=== PATIENT | female | born 1960 | race Caucasian/White ===

== ENCOUNTER 2020-01-21 13:49 | Outpatient (CLI) | payer OTHER, SELFPAY ==
[2020-01-21 14:15] LABS: Basophils Percent Auto 0.3 % (0.2-1.2); Eosinophils Absolute Auto 0.1 K/mm3 (0-0.3); Eosinophils Percent Auto 0.8 % (0-4.4); Hematocrit 43.3 % (37.0-47.0); Hemoglobin 14.7 g/dL (12.0-15.0); Immature Granulocyte Absolute 0.03 K/mm3 (0.00-0.031); Immature Granulocyte Percent A 0.3 % (0-0.5); Lymphocytes Absolute Auto 1.55 K/mm3 (0.9-3.2); Lymphocytes Percent Auto 16.9 % (18.3-44.2); Mean Corpuscular HGB Conc 33.9 g/dl (32-36); Mean Corpuscular Hemoglobin 32.4 pg (26-34); Mean Corpuscular Volume 95.4 fl (80-100); Mean Platelet Volume 9.6 fl (7.4-10.4); Monocytes Absolute Auto 0.6 K/mm3 (0.1-0.6); Monocytes Percent Auto 6.1 % (2.6-8.5); Neutrophils Absolute Auto 6.9 K/mm3 (1.3-6.7); Neutrophils Percent Auto 75.6 % (45.5-73.1); Platelet Count Result 304 k/mm3 (150-375); Red Blood Count 4.54 M/mm3 (4.2-5.4); Red Cell Distribution Width 12.8 % (11.5-14.5); White Blood Count 9.2 K/mm3 (4.5-10.0)
[2020-01-21 14:31] LABS: Anion Gap 12.9 mmol/L (7-16); Blood Urea Nitrogen 20 mg/dL (7-17); Calcium 10.2 mg/dL (8.4-10.2); Carbon Dioxide 30 mmol/L (22-30); Chloride 100 mmol/L (98-107); Estimated Glomerular Filt Rate > 60; Glucose 108 mg/dL (65-105); Potassium 3.9 mmol/L (3.4-5.0); Sodium 139 mmol/L (137-145)
[2020-01-21 15:48] LABS: Vitamin D 25 Hydroxy 57.9 ng/mL
== END 2020-01-21 13:50 | disposition home or self-care (01) ==
PROVIDERS: PCP Family Medicine; Visit Provider Nurse Practitioner Family
DX: Z13.1 Encounter for screening for diabetes mellitus (principal); R53.83 Other fatigue; E53.8 Deficiency of other specified B group vitamins; E55.9 Vitamin D deficiency, unspecified
CPT/HCPCS: 36415; 80048; 82306; 82607; 84443; 85025

== ENCOUNTER 2020-03-08 11:15 | Outpatient (CLI) | payer OTHER, SELFPAY ==
--- NOTE | ~2020-03-08 | MM_ITS ---
EXAMINATION: MM diag doug implant BI w juliann HISTORY: History of previous right breast cancer with lumpectomy TECHNIQUE: Additional 3-D tomosynthesis images of the breasts were performed and synthetic 2-D images were generated. CAD analysis was submitted and interpreted. COMPARISON: Comparison to multiple prior studies sequentially, with oldest reviewed study dated 01/2018. BREAST PARENCHYMAL COMPOSITION: Breast composed of scattered areas of fibroglandular density. FINDINGS: There are no suspicious masses, calcifications or architectural distortion in the right [place] ast to suggest malignancy. Stable architectural distortion in the upper outer quadrant of the right b reast, consistent with previous lumpectomy sites. There are bilateral subpectoral silicone implants. IMPRESSION: 1. Stable bilateral mammogram without evidence for malignancy. 2. Routine yearly screening mammogram and regular clinical breast examination are recommended. BI-RADS Category 2: Benign finding(s). Reviewed, dictated and finalized at location A. IMPRESSION: 1. Stable bilateral mammogram without evidence for malignancy. 2. Routine yearly screening mammogram and regular clinical breast examination a re recommended. BI-RADS Category 2: Benign finding(s).
== END 2020-03-08 11:16 | disposition home or self-care (01) ==
PROVIDERS: PCP Family Medicine; Visit Provider Family Medicine
DX: Z85.3 Personal history of malignant neoplasm of breast (principal)
CPT/HCPCS: 77062; 77066; G0279

== ENCOUNTER 2020-07-09 11:36 | Outpatient (CLI) | payer OTHER, SELFPAY ==
--- NOTE | ~2020-07-09 | XR_ITS ---
EXAMINATION: XR hip BI 2V w AP pelvis EXAM DATE: 07/09/2020 12:00 INDICATION: M16.0 - Bilateral primary osteoarthritis of hip. TECHNIQUE: Each hip imaged independently (separate right and also left hip) 'frog leg' and frontal p rojections for interpretation. Frontal projection pelvis. There is no prior study for comparison. FINDINGS: No radiographic evidence of hip avascular necrosis. There is mild symmetric bilateral hip primary osteoarthritis. There are no acute fractures or dislocations identified. There is no subcuta neous gas. The soft tissue is unremarkable. There are no radiopaque foreign bodies. Sacrum, sacro iliac joints, sacral arcuate lines are intact. IMPRESSION: Mild symmetric bilateral hip osteoarthritis. Reviewed, dictated and finalized at location B. 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
--- NOTE | ~2020-07-09 | XR_ITS ---
EXAMINATION: XR lumbar spine 6V w bending EXAM DATE: 07/09/2020 11:59 INDICATION: Low back pain. TECHNIQUE: Lumber spine frontal, lateral, bilateral oblique projections. Coned down frontal and lat eral L5-S1 lumbar projections for interpretation. Additional lateral flexion and lateral extension p rojections obtained. There are no prior studies for comparison. FINDINGS: The vertebral bodies are aligned on the lateral projections. There is mild diffuse lumbar d isc disease. Vertebral body heights appear well-maintained. Moderate lumbar facet arthropathy. No spo ndylolysis. Sacrum, sacroiliac joints, sacral arcuate lines are intact. Paraspinal soft tissue is unr emarkable. There are no bony erosions identified. IMPRESSION: Moderate lumbar arthropathy, mild disc disease. Reviewed, dictated and finalized at location B. 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
== END 2020-07-09 11:37 ==
PROVIDERS: PCP Family Medicine; Visit Provider Family Medicine
DX: M54.5 Low back pain (principal); M16.0 Bilateral primary osteoarthritis of hip; M47.816 Spondylosis without myelopathy or radiculopathy, lumbar region
CPT/HCPCS: 72114; 73521

== ENCOUNTER 2020-11-07 16:19 | Outpatient (CLI) | payer OTHER, SELFPAY ==
--- NOTE | ~2020-11-07 | XR_ITS ---
XR forearm RT 2V DATE: 11/07/2020 16:35 INDICATION: Right arm and elbow pain TECHNIQUE: AP and lateral views of right forearm COMPARISON: None FINDINGS: No fracture or dislocation, periosteal reaction or bone destruction. Normal alignment and e lbow and wrist joints. IMPRESSION: Negative Reviewed, dictated and finalized at location A. IMPRESSION: Negative
--- NOTE | ~2020-11-07 | XR_ITS ---
EXAMINATION: XR elbow RT min 3V EXAM DATE: 11/07/2020 16:35 INDICATION: Initial encounter following injury, with pain of the right elbow, forearm. States injury on 10/29. TECHNIQUE: Right elbow frontal, lateral with flexion, and oblique projections obtained and reviewed. Correlation is made to right forearm exam earlier same date. FINDINGS: Right elbow anterior humeral line intact. There are no acute fractures or dislocations rachel ntified. There is no subcutaneous gas. The soft tissue is unremarkable. There are no radiopaque f oreign bodies. No evidence of elbow joint effusion. IMPRESSION: 1. XR elbow RT min 3V exam without acute osseous findings. Reviewed, dictated and finalized at location A.
== END 2020-11-07 16:20 ==
PROVIDERS: Visit Provider Physician Assistant Medical
DX: M25.521 Pain in right elbow (principal); M79.601 Pain in right arm
CPT/HCPCS: 73080; 73090

== ENCOUNTER 2021-04-16 17:20 | Outpatient (CLI) | payer OTHER, SELFPAY ==
--- NOTE | ~2021-04-16 | XR_ITS ---
EXAMINATION: XR cervical spine min 6V DATE: 04/16/2021 17:54 INDICATION: Chronic neck pain. TECHNIQUE: 7 views of cervical spine including flexion and extension views were obtained. COMPARISON: None. FINDINGS: There is 2 mm anterolisthesis of C4 on C5 and C5 on C6. There is no abnormal motion with fl exion or extension. Vertebral body heights are normal. There is severely decreased disc height at C6- C7 with endplate remodeling. There is mildly decreased disc height at C4-C5 and C5-C6. On the left, t here is severe facet joint osteoarthritis at C3-C4, C4-C5, C5-C6. There is multilevel mild to moderat e facet joint osteoarthritis. There is moderate left neural foraminal stenosis at C4-C5 and mild left neural foraminal stenosis at C3-C4, C5-C6, and C7-T1. There is mild central canal stenosis at C4-C5, C5-C6, and C6-C7. No prevertebral soft tissue swelling. IMPRESSION: 1. Severe cervical spondylosis. Reviewed, dictated and finalized at location A.
== END 2021-04-16 17:21 | disposition home or self-care (01) ==
LOC: ANHIMG 17:24
PROVIDERS: PCP Family Medicine; Visit Provider Family Medicine
DX: M47.813 Spondylosis without myelopathy or radiculopathy, cervicothoracic region (principal); M79.603 Pain in arm, unspecified; M48.03 Spinal stenosis, cervicothoracic region
CPT/HCPCS: 72052

== ENCOUNTER 2022-03-28 13:14 | Outpatient (CLI) | payer OTHER, SELFPAY ==
--- NOTE | ~2022-03-28 | MM_ITS ---
EXAMINATION: MM diag doug implant BI w juliann HISTORY: Status post right partial mastectomy for breast cancer in 2017. Patient had chemotherapy and radiotherapy. TECHNIQUE: ML, MLO and CC 3-D tomosynthesis images of both breasts were performed and synthetic 2-D i mages were generated. CAD analysis was submitted and interpreted. COMPARISON: 03/08/2020bilateral diagnostic mammography BREAST PARENCHYMAL COMPOSITION: The breasts are heterogeneously dense, which may obscure small masses . FINDINGS: Status post right partial mastectomy. Biopsy marker is noted in the posterior upper outer r ight breast. No suspicious mass or new architectural distortion, malignant calcification, skin thickening or new r etraction or significant new or developing density is detected. IMPRESSION: 1. Status post right partial mastectomy for breast cancer; status post right breast reconstruction 2. No mammographic evidence of malignancy; routine annual mammographic screening is recommended, with additional imaging as clinically appropriate BI-RADS Category 2: Benign finding(s). Reviewed, dictated and finalized at location A. IMPRESSION: 1. Status post right partial mastectomy for breast cancer; status post right br east reconstruction 2. No mammographic evidence of malignancy; routine annual mammographic screenin g is recommended, with additional imaging as clinically appropriate BI-RADS Category 2: Benign finding(s).
== END 2022-03-28 13:15 | disposition home or self-care (01) ==
LOC: ANHIMG 13:15
PROVIDERS: PCP Family Medicine; Visit Provider Family Medicine
DX: Z85.3 Personal history of malignant neoplasm of breast (principal); Z98.890 Other specified postprocedural states
CPT/HCPCS: 77062; 77066; G0279

== ENCOUNTER 2022-09-19 09:17 | Outpatient (CLI) | payer OTHER, SELFPAY ==
--- NOTE | ~2022-09-19 | XR_ITS ---
EXAMINATION: XR hip LT min 3V w AP pelvis INDICATION: Left hip pain after fall TECHNIQUE: AP view the pelvis and three views of the left hip are obtained. COMPARISON: 07/09/2020 FINDINGS: Bone alignment is normal. There is no fracture. The soft tissues are unremarkable. IMPRESSION: 1. No acute osseous abnormality. Reviewed, dictated and finalized at location B.
== END 2022-09-19 09:18 | disposition home or self-care (01) ==
PROVIDERS: PCP Family Medicine; Visit Provider Family Medicine
DX: M25.552 Pain in left hip (principal)
CPT/HCPCS: 73502

== ENCOUNTER 2022-09-25 10:09 | Outpatient (CLI) | payer OTHER, SELFPAY ==
--- NOTE | ~2022-09-25 | XR_ITS ---
Clinical Indication: Metastatic disease PA and lateral views of the chest: Comparison: 01/21/2020 Findings: The lungs are clear, without evidence of focal consolidation or pleural effusion. Cardiome diastinal silhouette is within normal limits. Bones and soft tissues are unremarkable. Impression: Normal chest. Reviewed, dictated and finalized at location . Impression: Normal chest.
--- NOTE | ~2022-09-25 | XR_ITS ---
AP and lateral views of the neck CLINICAL HISTORY: Left-sided neck lump, history of metastatic breast cancer FINDINGS: There is degenerative disc narrowing at C6-C7. Minimal grade 1 anterolisthesis of C4 over C 5 present. No prevertebral soft tissue swelling. Aerodigestive column is unremarkable. Epiglottis unr emarkable. No distinct soft tissue mass evident. IMPRESSION: No soft tissue mass evident on this exam. Please refer to contrast-enhanced CT scan of the neck perfo rmed concurrently, reported separately, for further details in the neck. Degenerative spondylosis of the cervical spine, as above. Reviewed, dictated and finalized at location M. IMPRESSION: No soft tissue mass evident on this exam. Please refer to contrast-enhanced CT scan of the neck performed concurrently, reported separately, for further detai ls in the neck. Degenerative spondylosis of the cervical spine, as above.
--- NOTE | ~2022-09-25 | CT_ITS ---
EXAMINATION: CT soft tissue neck chest w DATE: 09/25/2022 13:09 INDICATION: Neck and chest localized swelling. TECHNIQUE: Computed tomography (CT) of the neck and chest was performed with 75 mL Omnipaque-350 intr avenous contrast. Automated exposure control and iterative reconstruction technique were employed. Th e dose-length product was 414.09 mGy-cm. COMPARISON: None FINDINGS: CT NECK: There are no pathologically enlarged lymph nodes. There is plaque in the proximal left inter nal carotid artery with 0% stenosis relative to normal distal artery lumen diameter. There is fat str anding in the mid and inferior left neck and left supraclavicular region. There is moderate cervical spondylosis. CT CHEST: There is mild atelectasis bilaterally. There is mild peripheral radiation fibrosis in anter olateral right lung. There is a trace left pleural effusion. The heart size is normal. No pericardial effusion. There are coronary artery calcifications. There are bilateral breast implants. There is ch ronic thrombosis of left brachiocephalic vein with enlarged collateral veins. There is subcutaneous f at stranding in the breasts bilaterally with a medial predominance, likely edema. There is a 2.5 cm m ass in the liver with interrupted peripheral puddling of contrast, consistent with a hemangioma. The liver cysts in the liver measuring up to 8 mm. There is sclerosis in the vertebral bodies from C5 to T6 with a posterior predominance. There is sclerosis in the left-sided posterior elements from T2 to T7. There is a 9 mm sclerotic lesion in L1 vertebral body anteriorly. IMPRESSION: 1. Edema involving the left neck, left supraclavicular region, and medial breasts. 2. 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 3. Sclerosis involving multiple contiguous bones from C7 to T6. The distribution of the sclerosis sug gests a regional abnormality such as osteitis from chemotherapy in the setting of altered venous infu terri distribution. Metastatic disease cannot be excluded. 4. 9 mm sclerotic lesion in L1 vertebral body, which may be a hemangioma or metastatic disease. Reviewed, dictated and finalized at location A. IMPRESSION: 1. Edema involving the left neck, left supraclavicular region, and medial breas ts. 2. Chronic thrombosis of left brachiocephalic vein with enlarged collateral vei ns. 3. Sclerosis involving multiple contiguous bones from C7 to T6. The distributio n of the sclerosis suggests a regional abnormality such as osteitis from chemot herapy in the setting of altered venous infusion distribution. Metastatic disea se cannot be excluded. 4. 9 mm sclerotic lesion in L1 vertebral body, which may be a hemangioma or met astatic disease.
[2022-09-25 13:00] LABS: Estimated Glomerular Filt Rate > 60
== END 2022-09-25 10:10 | disposition home or self-care (01) ==
PROVIDERS: PCP Family Medicine; Visit Provider Family Medicine
DX: R22.1 Localized swelling, mass and lump, neck (principal); M47.892 Other spondylosis, cervical region
CPT/HCPCS: 70360; 70491; 71046; 71260; Q9967

== ENCOUNTER 2022-09-26 12:15 | Outpatient (CLI) | payer OTHER, SELFPAY ==
[2022-09-26 12:46] LABS: Basophils Percent Auto 0.5 % (0.2-1.2); Eosinophils Absolute Auto 0.1 K/mm3 (0-0.3); Eosinophils Percent Auto 1.3 % (0-4.4); Hematocrit 37.7 % (37.0-47.0); Hemoglobin 12.6 g/dL (12.0-15.0); Immature Granulocyte Absolute 0.02 K/mm3 (0.00-0.031); Immature Granulocyte Percent A 0.3 % (0-0.5); Lymphocytes Absolute Auto 1.37 K/mm3 (0.9-3.2); Lymphocytes Percent Auto 21.7 % (18.3-44.2); Mean Corpuscular HGB Conc 33.4 g/dl (32-36); Mean Corpuscular Hemoglobin 32.1 pg (26-34); Mean Corpuscular Volume 95.9 fl (80-100); Monocytes Absolute Auto 0.5 K/mm3 (0.1-0.6); Monocytes Percent Auto 8.5 % (2.6-8.5); Neutrophils Absolute Auto 4.3 K/mm3 (1.3-6.7); Neutrophils Percent Auto 67.7 % (45.5-73.1); Platelet Count Result 288 k/mm3 (150-375); Red Blood Count 3.93 M/mm3 (4.2-5.4); Red Cell Distribution Width 12.3 % (11.5-14.5); White Blood Count 6.3 K/mm3 (4.5-10.0)
[2022-09-26 13:09] LABS: Alanine Aminotransferase 21 U/L (6-35); Alkaline Phosphatase 69 U/L (38-126); Anion Gap 5 mmol/L (8-16); Aspartate Amino Transferase 20 U/L (14-36); Bilirubin,Total 0.4 mg/dL (0.2-1.3); Blood Urea Nitrogen 21 mg/dL (7-17); Calcium 8.6 mg/dL (8.4-10.2); Carbon Dioxide 34 mmol/L (22-30); Chloride 99 mmol/L (98-107); Estimated Glomerular Filt Rate > 60; Glucose 77 mg/dL (65-110); Potassium 3.6 mmol/L (3.4-5.0); Sodium 138 mmol/L (137-145)
[2022-09-30 20:01] LABS: EBV Nuclear Ab Antibody >600.00 U/mL (<18.00); EBV Nuclear Ab Interpretation Past; EBV Virus Capsid Ag IgG Ab >750.00 U/mL (<18.00); EBV Virus Capsid Ag IgM Ab <36.00 U/mL (<36.00)
== END 2022-09-26 12:16 | disposition home or self-care (01) ==
LOC: ANHLAB 12:16
PROVIDERS: PCP Family Medicine; Visit Provider Physician Assistant Medical
DX: C50.919 Malignant neoplasm of unspecified site of unspecified female breast (principal); J90 Pleural effusion, not elsewhere classified; R22.1 Localized swelling, mass and lump, neck
CPT/HCPCS: 36415; 80053; 84443; 85025; 86664; 86665

== ENCOUNTER 2022-09-29 09:35 | Outpatient (CLI) | payer OTHER, SELFPAY ==
--- NOTE | ~2022-09-29 | US_ITS ---
EXAMINATION: US venous doppler UE LT DATE: 09/29/2022 10:07 INDICATION: Neck swelling TECHNIQUE: Grayscale images without and with compression and Doppler images of the left upper extremi ty veins were obtained. COMPARISON: None. FINDINGS: The left internal jugular vein, subclavian vein, axillary vein, brachial vein, basilic vein, cephalic vein, radial vein, and ulnar vein are patent. IMPRESSION: 1. Patent left upper extremity veins. No evidence of venous thrombosis. Reviewed, dictated and finalized at location A.
== END 2022-09-29 09:36 | disposition home or self-care (01) ==
PROVIDERS: PCP Family Medicine; Visit Provider Physician Assistant Medical
DX: R22.1 Localized swelling, mass and lump, neck (principal)
CPT/HCPCS: 93971

== ENCOUNTER 2022-10-09 13:14 | Outpatient (CLI) | payer OTHER, SELFPAY ==
--- NOTE | ~2022-10-09 | PE_ITS ---
EXAMINATION: PET skull to mid thigh DATE: 10/09/2022 15:37 INDICATION: Right breast cancer. TECHNIQUE: Blood glucose level was 75 mg/dL. 9.635 mCi of 18-fluorodeoxyglucose (18-FDG) was administ ered i.v. Low dose computed tomography (CT) images were acquired from the base of the brain to the pr oximal thighs for attenuation correction and anatomic localization. Automated exposure control was em ployed. Dose-length product (DLP) was 545 mGy-cm. Positron emission tomography (PET) images were acqu ired in the same distribution. COMPARISON: Chest CT 09/25/2022 FINDINGS: Head/neck: There are no pathologically enlarged lymph nodes. There is fat stranding in left supraclav icular region with maximum SUV of 4.0. Chest: There is no pneumonia or pleural effusion. The heart size is normal. There are coronary artery calcifications. No pericardial effusion. There are bilateral breast implants. There are no pathologi yamile enlarged lymph nodes. Abdomen/pelvis/proximal thighs: There are cysts in the liver measuring up to 9 mm. The gallbladder, s pleen, pancreas, adrenal glands, and kidneys are normal. There is a large volume of stool in the colo n. There are no dilated loops of bowel. There are no pathologically enlarged lymph nodes. There is no free intraperitoneal fluid. There is a healing insufficiency fracture of left superior pubic ramus w ith increased activity. There is a 9 mm sclerotic lesion in L1 vertebral body without increased activ ity, likely a hemangioma. IMPRESSION: 1. No evidence of metastatic disease. 2. Fat stranding in left supraclavicular region with increased activity, consistent with inflammation . Reviewed, dictated and finalized at location A. IMPRESSION: 1. No evidence of metastatic disease. 2. Fat stranding in left supraclavicular region with increased activity, consis tent with inflammation.
[2022-10-09 13:57] LABS: Glucose Point of Care 75 mg/dl (65-105)
== END 2022-10-09 13:15 | disposition home or self-care (01) ==
PROVIDERS: PCP Family Medicine; Visit Provider Physician Assistant Medical
DX: C50.911 Malignant neoplasm of unspecified site of right female breast (principal); M89.9 Disorder of bone, unspecified; R22.1 Localized swelling, mass and lump, neck; J90 Pleural effusion, not elsewhere classified
CPT/HCPCS: 78815; A9552

== ENCOUNTER 2022-11-12 16:38 | Outpatient (CLI) | payer OTHER, SELFPAY ==
[2022-11-12 17:01] LABS: Hematocrit 37.4 % (37.0-47.0); Hemoglobin 12.6 g/dL (12.0-15.0); Mean Corpuscular HGB Conc 33.7 g/dl (32-36); Mean Corpuscular Hemoglobin 31.8 pg (26-34); Mean Corpuscular Volume 94.4 fl (80-100); Mean Platelet Volume 9.7 fl (7.4-10.4); Platelet Count Result 268 k/mm3 (150-375); Red Blood Count 3.96 M/mm3 (4.2-5.4); Red Cell Distribution Width 12.3 % (11.5-14.5); White Blood Count 6.5 K/mm3 (4.5-10.0)
[2022-11-12 17:06] LABS: Alkaline Phosphatase 67 U/L (38-126); Anion Gap 4 mmol/L (8-16); Blood Urea Nitrogen 19 mg/dL (7-17); Calcium 9.5 mg/dL (8.4-10.2); Carbon Dioxide 32 mmol/L (22-30); Chloride 100 mmol/L (98-107); Estimated Glomerular Filt Rate > 60; Glucose 91 mg/dL (65-110); Potassium 4.4 mmol/L (3.4-5.0); Sodium 136 mmol/L (137-145)
[2022-11-12 17:39] LABS: Thyroid Stimulating Hormone 0.473 uIU/mL (0.465-4.680)
== END 2022-11-12 16:39 | disposition home or self-care (01) ==
LOC: ANHLAB 16:40
PROVIDERS: PCP Family Medicine; Visit Provider Family Medicine
DX: E55.9 Vitamin D deficiency, unspecified (principal); D64.9 Anemia, unspecified; E53.8 Deficiency of other specified B group vitamins; F90.9 Attention-deficit hyperactivity disorder, unspecified type; M89.9 Disorder of bone, unspecified
CPT/HCPCS: 36415; 80048; 82306; 82607; 84075; 84443; 85027

== ENCOUNTER 2022-11-13 14:04 | Outpatient (CLI) | payer OTHER, SELFPAY ==
[2022-11-13 15:08] LABS: Alanine Aminotransferase 23 U/L (6-35); Albumin Level 4.3 g/dL (3.5-5.1); Alkaline Phosphatase 64 U/L (38-126); Aspartate Amino Transferase 22 U/L (14-36); Bilirubin,Total 0.5 mg/dL (0.2-1.3)
[2022-11-13 15:19] LABS: Erythrocyte Sedimentation Rate 18 mm/hr (0-20)
[2022-11-17 17:08] LABS: Albumin 4.1 g/dL (3.8-4.8); Alpha 1 Globulin 0.3 g/dL (0.2-0.3); Alpha 2 Globulin 0.7 g/dL (0.5-0.9); Beta 1 Globulin 0.4 g/dL (0.4-0.6); Gamma Globulin 0.8 g/dL (0.8-1.7); Protein, Total 6.6 g/dL (6.1-8.1)
[2022-11-18 10:34] LABS: CRP, High Sensitivity 2.2 mg/L (***)
[2022-11-18 19:57] LABS: CK-BB None Detected (None Detected); CK-MB 0 % (<5); CK-MM 75 % (95-100)
[2022-11-19 12:59] LABS: Alkaline Phosphatase 59 U/L (37-153); Macrohepatic Isoenzymes 0 % (<=0)
== END 2022-11-13 14:05 | disposition home or self-care (01) ==
PROVIDERS: PCP Family Medicine; Visit Provider Family Medicine
DX: C50.919 Malignant neoplasm of unspecified site of unspecified female breast (principal); M62.81 Muscle weakness (generalized); M89.9 Disorder of bone, unspecified
CPT/HCPCS: 36415; 80076; 82550; 82552; 84075; 84080; 84155; 84165; 85652; 86141

== ENCOUNTER 2023-04-03 12:40 | Outpatient (CLI) | payer OTHER, SELFPAY ==
--- NOTE | ~2023-04-03 | MM_ITS ---
EXAMINATION: MM diag doug implant BI w juliann HISTORY: Personal history of breast cancer TECHNIQUE: Craniocaudal, mediolateral, and mediolateral oblique 3-D tomosynthesis images with implant displacement of the breasts were performed and synthetic 2-D images were generated. Craniocaudal, m ediolateral oblique, and mediolateral views of the breasts without implant displacement were obtained using full field digital mammography. CAD analysis was submitted and interpreted. COMPARISON: 03/28/2022, 03/08/2020, 09/03/2017 BREAST PARENCHYMAL COMPOSITION: There are scattered areas of fibroglandular density. FINDINGS: No suspicious mass, calcification, or architectural distortion are identified in either breast to sug gest malignancy. There has been no suspicious interval change. IMPRESSION: 1. No mammographic evidence of malignancy. 2. Recommend routine screening mammography in one year. BI-RADS Category 1: Negative Reviewed, dictated and finalized at location A.
== END 2023-04-03 12:41 | disposition home or self-care (01) ==
LOC: ANHIMG 12:41
PROVIDERS: PCP Family Medicine; Visit Provider Nurse Practitioner Family
DX: Z85.3 Personal history of malignant neoplasm of breast (principal)
CPT/HCPCS: 77062; 77066; G0279

== ENCOUNTER 2023-09-29 06:58 | Outpatient (CLI) | payer OTHER, SELFPAY ==
[2023-09-29 07:27] LABS: Basophils Percent Auto 0.6 % (0.2-1.2); Eosinophils Absolute Auto 0.2 K/mm3 (0-0.3); Hematocrit 40.8 % (37.0-47.0); Hemoglobin 13.5 g/dL (12.0-15.0); Immature Granulocyte Absolute 0.01 K/mm3 (0.00-0.031); Immature Granulocyte Percent A 0.2 % (0-0.5); Lymphocytes Absolute Auto 1.54 K/mm3 (0.9-3.2); Lymphocytes Percent Auto 29.1 % (18.3-44.2); Mean Corpuscular HGB Conc 33.1 g/dl (32-36); Mean Corpuscular Hemoglobin 31.7 pg (26-34); Mean Corpuscular Volume 95.8 fl (80-100); Mean Platelet Volume 10.1 fl (7.4-10.4); Monocytes Absolute Auto 0.5 K/mm3 (0.1-0.6); Monocytes Percent Auto 9.3 % (2.6-8.5); Neutrophils Absolute Auto 3.1 K/mm3 (1.3-6.7); Neutrophils Percent Auto 57.8 % (45.5-73.1); Platelet Count Result 345 k/mm3 (150-375); Red Blood Count 4.26 M/mm3 (4.2-5.4); Red Cell Distribution Width 12.1 % (11.5-14.5); White Blood Count 5.3 K/mm3 (4.5-10.0)
[2023-09-29 07:33] LABS: Alanine Aminotransferase 15 U/L (6-35); Albumin Level 4.3 g/dL (3.5-5.1); Alkaline Phosphatase 59 U/L (38-126); Anion Gap 4 mmol/L (4-12); Aspartate Amino Transferase 18 U/L (14-36); Bilirubin,Total 0.5 mg/dL (0.2-1.3); Blood Urea Nitrogen 27 mg/dL (7-17); Calcium 9.3 mg/dL (8.4-10.2); Carbon Dioxide 33 mmol/L (22-30); Chloride 99 mmol/L (98-107); Estimated Glomerular Filt Rate > 60; Glucose 96 mg/dL (65-110); Potassium 3.6 mmol/L (3.4-5.0); Sodium 136 mmol/L (137-145)
[2023-09-29 08:41] LABS: Iron 84 ug/dL (37-170)
[2023-09-29 08:53] LABS: Percent Iron Saturation 26 % (20-50)
[2023-09-29 08:54] LABS: Vitamin D 25 Hydroxy 48.3 ng/mL
== END 2023-09-29 06:59 | disposition home or self-care (01) ==
PROVIDERS: PCP Family Medicine; Visit Provider Family Medicine
DX: D64.9 Anemia, unspecified (principal); I10 Essential (primary) hypertension; E55.9 Vitamin D deficiency, unspecified
CPT/HCPCS: 36415; 80053; 82306; 82607; 82728; 83540; 83550; 83735; 84443; 85025

== ENCOUNTER 2024-04-08 12:07 | Outpatient (CLI) | payer OTHER, SELFPAY ==
[2024-04-08 12:50] LABS: Add Urine Microscopic? YES; Appearance Urine Clear (Clear); Bacteria Urine None Seen /hpf; Bilirubin Urine Negative (Negative); Blood Urine Negative (Negative); Color Urine Yellow (Yellow); Glucose Urine UA Negative (Negative); Ketones Urine Negative (Negative); Leukocyte Esterase Ur 1+ LEU/UL (Negative); Need Manual Microscopic Reviewed; Nitrate Urine Negative (Negative); Non Pathogenic Casts 0-2; Protein Urine Negative (Negative); RBC Urine 0-2 /hpf (0-2); Specific Grav Ur 1.021 (1.001-1.035); Squamous Epithelial Cell Urine None Seen /hpf (Few); WBC Urine 0-5 /hpf (0-3)
== END 2024-04-08 12:08 | disposition home or self-care (01) ==
LOC: ANHLAB 12:08
PROVIDERS: PCP Family Medicine; Visit Provider Nurse Practitioner Adult Health
DX: R31.29 Other microscopic hematuria (principal)
CPT/HCPCS: 81001; 87086

== ENCOUNTER 2024-04-08 12:23 | Outpatient (CLI) | payer OTHER, SELFPAY ==
--- NOTE | ~2024-04-08 | MM_ITS ---
EXAMINATION: MM diag doug implant BI w juliann HISTORY: History of right breast cancer. Breast implants. TECHNIQUE: Additional 3-D tomosynthesis images of the breasts were performed and synthetic 2-D images were generated. CAD analysis was submitted and interpreted. COMPARISON: Comparison to multiple prior studies sequentially, with oldest reviewed study dated 07/2019. BREAST PARENCHYMAL COMPOSITION: Not dense: There are scattered areas of fibroglandular density. FINDINGS: Stable asymmetry/architectural distortion in the upper outer quadrant of the right breast. There are bilateral subpectoral silicone implants. There are no new masses, calcifications or archite ctural distortion in either breast to suggest malignancy. IMPRESSION: 1. Stable bilateral mammogram without evidence for malignancy. 2. Routine yearly screening mammogram and regular clinical breast examination are recommended. BI-RADS Category 1: Negative Reviewed, dictated and finalized at location B. IMPRESSION: 1. Stable bilateral mammogram without evidence for malignancy. 2. Routine yearly screening mammogram and regular clinical breast examination a re recommended. BI-RADS Category 1: Negative
== END 2024-04-08 12:24 | disposition home or self-care (01) ==
LOC: ANHIMG 12:25
PROVIDERS: PCP Family Medicine; Visit Provider Physician Assistant Medical
DX: Z85.3 Personal history of malignant neoplasm of breast (principal); Z98.86 Personal history of breast implant removal
CPT/HCPCS: 77062; 77066; G0279

== ENCOUNTER 2024-04-21 11:43 | Outpatient (CLI) | payer OTHER, SELFPAY ==
--- NOTE | ~2024-04-21 | XR_ITS ---
XR tibia fibula LT 2V Ordering provider: Richard Sosa MD History: . M89.8X6 - Other specified disorders of bone, lower leg . Comparison: None. FINDINGS: BONES: No acute fracture or dislocation. JOINT SPACES: Normal. SOFT TISSUES: Normal. IMPRESSION: No acute osseous abnormality left leg. Reviewed, dictated and finalized at location A.
== END 2024-04-21 11:44 | disposition home or self-care (01) ==
PROVIDERS: PCP Family Medicine; Visit Provider Family Medicine
DX: M89.8X6 Other specified disorders of bone, lower leg (principal)
CPT/HCPCS: 73590

== ENCOUNTER 2024-06-18 10:45 | Outpatient (CLI) | payer OTHER, SELFPAY ==
--- NOTE | ~2024-06-18 | XR_ITS ---
EXAMINATION: XR chest 2V DATE: 06/18/2024 11:06 INDICATION: Cough and congestion. TECHNIQUE: Frontal and lateral views of the chest were obtained. COMPARISON: Chest 2 views 09/25/2022 FINDINGS: There is no pneumonia, pleural effusion, or pneumothorax. The heart size is normal. IMPRESSION: 1. No acute cardiopulmonary disease. Reviewed, dictated and finalized at location A. E
--- OUTSIDE RECORDS SUMMARY | 2024-06-25 14:26 | XMS_ITS | Encounter Summary ---
Author Organization [facility] Address [address] [place] [address] Phone Care Team Providers Care Dirt Supervisor Name Role Phone Richard Sosa MD Primary Care Provider Encounter Details Date Type Department Care Team (Late st Contact Info) Description 11/27/[address] 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
--- OUTSIDE RECORDS SUMMARY | 2024-06-25 14:26 | XMS_ITS | Encounter Summary ---
Author Organization [facility] Address [address] [place] [address] Phone Care Team Providers Care Talent Associate Name Role Phone Richard Sosa MD Primary Care Provider [phone] Encounter Details Date Type Department Care Team (Late st Contact Info) Description 03/22/2021 Orders Only [facility] [address] [facility] 5th [place] [address] [place] [address] Argelia Hussein MD [address] [facility] [address] [place] [id number] History of breast cancer (Primary Dx) Social History Tobacco Use Types Packs/Day Years Used Date Smoking Tobacco: Never Smokeless Tobacco: Never Alcohol Use Standard Drinks/Week Comments Yes 0 (1 standard drink = 0.6 oz pur e alcohol) Comments Unknown Sex and Gender Information Value Date Recorded Sex Assigned at Not on file 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
--- OUTSIDE RECORDS SUMMARY | 2024-06-25 14:26 | XMS_ITS | Encounter Summary ---
Author Organization [facility] Address [address] [place] [address] Phone Care Team Providers Care Sql Ssis Developer Name Role Phone Richard Sosa MD Primary Care Provider [phone] Reason for Referral * Diagnostic Imaging (Routine) - Closed Specialty Diagnoses / Procedures Referred By Westley menezes Referred To Contact Diagnoses History of breast cancer Procedures Diagnostic Mammogram Bilateral W Felix W Implants Argelia Hussein MD [address] [address] Phone: tel: fax: [address] [address] Referral ID Status Reason Start Date Expiration Date Visits Re quested Visits Authorized [id number] Closed 03/20/2021 04/19/2022 1 1 Reason for Visit * Reason Comments Follow-up * Consultation (Routine) - Closed Specialty Diagnoses / Procedures Referred By Westley menezes Referred To Contact Surgical Oncology Diagnoses History of breast cancer Richard Sosa MD Phone: tel: fax: [facility] (All Locations) Referral ID Status Reason Start Date Expiration Date V isits Requested Visits Authorized [id number] Closed Specialty Services Required 03/30/2020 04/29/2021 1 1 Encounter Details Date Type Department Care Team (Late st Contact Info) Description 03/22/2021 10:30 AM CDT Office Visit [facility] Surgery [address] 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 Department of Surgery [address] [place] [address] [address] ?? [place] [address] ? 03/22/2021 CHIEF COMPLAINT: Follow-up for right breast cancer. HISTORY OF PRESENT ILLNESS: Ms. Marshall is a 61 y.o. woman who is now three and a half years status-post neoadjuvant chemotherapy followed by a right partial mastectomy and sentinel lymph node biopsy for a pathologic T1N1 invasive ductal cancer. Following her surgical therapy, she did undergo additional adjuvant chemotherapy. Following her surgical therapy, she did undergo adjuvant radiation therapy. She was not a candidate for endocrine therapy. She returns today for her routine visit and statesthat she is doing well. She denies any masses in either breast. She denies any change in the appearance of her breasts or the skin of her breasts, outside of that attributed to her previous surgical and radiation therapies. She denies bilateral nipple discharge. She does report tenderness throughout the right breast. She has no other systemic complaints and otherwise feels well today. Please note that her past medical history, surgical history, medications, allergies, social history, and family history were all reviewed with her again today. Past Medical History: Diagnosis Date ??? Attention deficit disorder ??? Breast cancer (CMS/HCC) (HCC) ??? IBS (irritable bowel syndrome) ??? Melanoma (CMS/HCC) (HCC) excised at the age of 38 or 39 approximately Past Surgical History: Procedure Laterality Date ??? HYSTERECTOMY Hysterectomy Social History Socioeconomic History ??? Marital status: Spouse name: None ??? Number of children: None ??? Years of education: None ??? Highest education level: None Occupational History ??? None Tobacco Use ??? Smoking status: Never Smoker ??? Smokeless tobacco: Never Used Substance and Sexual Activity ??? Alcohol use: Yes ??? Drug use: No ??? Sexual activity: None Other Topics Concern ??? 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 Three kids ranging fr 14-33 yo (as of 20 Social Determinants of Health Financial Resource Strain: ??? Difficulty of Paying Living Expenses: Not on file Food Insecurity: ??? Worried About Running Out of Food in the Last Year: Not on file ??? Ran Out of Food in the Last Year: Not on file Transportation Needs: ??? Lack of Transportation (Medical): Not on file ??? Lack of Transportation (Non-Medical): Not on file Physical Activity: ??? Days of Exercise per Week: Not on file ??? Minutes of Exercise per Session: Not on file Stress: ??? Feeling of Stress : Not on file Social Connections: ??? Frequency of Communication with Friends and Family: Not on file ??? Frequency of Social Gatherings with Friends and Family: Not on file ??? Attends Synagogue Services: Not on file ??? Active Member of Clubs or Organizations: Not on file ??? Attends Club or Organization Meetings: Not on file ??? Marital Status: Not on file Intimate Partner Violence: ??? Fear of Current or Ex-Partner: Not on file ??? Emotionally Abused: Not on file ??? Physically Abused: Not on file ??? Sexually Abused: Not on file Family History Problem Relation Age of Onset ??? Other Father First [place] in his 40's, of [place]; Cause of : First [place] in his 40's, of [place] ??? Melanoma Father Melanoma - (Added by TW Conv) ??? Other Mother A&W; ??? Ovarian cancer Mother Ovarian cancer - (Added by TW Conv) ??? Melanoma Mother Melanoma - (Added by TW Conv) ??? Diabetes type II Sister Diabetes Type II; The patient underwent gene panel testing, which was negative for a mutation. Prior to Admission medications Not on File No Known Allergies ROS: Pertinent items are noted in HPI. A comprehensive review of systems was negative. PHYSICAL EXAMINATION: GENERAL: She is a well-developed, well-nourished woman in no acute distress. HEENT: Within normal limits. NECK: Neck appears supple without visible lymphadenopathy or thyromegaly. LUNGS: No audible wheezing. HEART: Regular. ABDOMEN: Soft. EXTREMITIES: No visible edema. NEUROLOGICAL: She is alert and oriented x 3. BREAST EXAMINATION: Bilateral breast examination reveals ptotic breasts bilaterally with obvious augmentation. The left breast is without any dominant masses, skin changes, nipple discharge, or axillary adenopathy. The right breast reveals a well-healed incision with minimal volume loss and excellent symmetry. The right breast is without any masses, nodules, skin changes, or evidence of recurrence. There is no right nipple discharge or right axillary masses per patient. IMAGING: The patient underwent bilateral diagnostic mammograms today which I personally reviewed today. She was given a category II, benign. IMPRESSION/RECOMMENDATION: Ms. Marshall is a 61 year-old woman who is now three and a half years status-post neoadjuvant chemotherapy followed by a right partial mastectomy and sentinel lymph node biopsy for a pathologic T1N1 invasive ductal cancer. Following her surgical therapy, she did undergo additional adjuvant chemotherapy. Following her surgical therapy, she did undergo adjuvant radiation therapy. She was not a candidate for endocrine therapy. I reassured her that based on her clinical examination and the imaging studies today that there is no evidence of any recurrent disease or new abnormalities. I encouraged her to wear a good support bra to help alleviate the tenderness of radiation fibrosis. I would like to see her back in person in one year at which time we will repeat her bilateral screening mammograms. In the interim, I encouraged her to resume self examinations on a monthly basis and to alert me of any changes. I answered all of her and her family's questions thoroughly,and they do seem pleased with this plan of approach. I encouraged her to contact me in the interim if any new questions or concerns arise. Argelia Hussein MD documented in this encounter Plan of Treatment Not on file documented as of this encounter Results * Diagnostic Mammogram Bilateral W Felix W Implants (03/22/2021 11:28 AM CDT) Anatomical Region Laterality Modality Breast Bilateral Mammography 03/22/2021 11:3 6 AM CDT Impressions 03/22/2021 11:48 AM CDT Changes of RIGHT breast conservation therapy without new suspicious abnormality within EITHER breast. OVERALL FINAL ASSESSMENT: BI-RADS Category 2: Benign. RECOMMENDATION: Annual screening mammography is recommended. Dictated by: Robert Quiñonez M.D. The radiology attending physician has personally reviewed this study, and had reviewed and/or edited this written report and agrees with it. Electronically signed by: Latoya De Leon M.D. Narrative 03/22/2021 11:48 AM CDT EXAMINATION: BILATERAL DIGITAL DIAGNOSTIC MAMMOGRAM INCLUDING CAD AND BILATERAL DIGITAL BREAST TOMOSYNTHESIS HISTORY: 61-year-old woman with history of breast conservation therapy in 2017 for invasive ductal carcinoma of the RIGHT breast. Patient presents for annual examination. COMPARISON: Mammograms dating back to 09/11/2016. TECHNIQUE: ??Full field digital mammographic views of BOTH breasts were performed, including computer aided detection (CAD) and BILATERAL digital breast tomosynthesis (DBT). BREAST PARENCHYMAL COMPOSITION: There are scattered areas of fibroglandular density. MAMMOGRAM FINDINGS: There are changes of RIGHT breast conservation therapy. ??Again seen are bilateral subpectoral silicone implants. ??No new suspicious abnormality in EITHER breast. ?? Procedure Note Latoya De Leon MD - 03/22/2021 EXAMINATION: BILATERAL DIGITAL DIAGNOSTIC MAMMOGRAM INCLUDING CAD AND BILATERAL DIGITAL BREAST TOMOSYNTHESIS HISTORY: 61-year-old woman with history of breast conservation therapy in 2017 for invasive ductal carcinoma of the RIGHT breast. Patient presents for annual examination. COMPARISON: Mammograms dating back to 09/11/2016. TECHNIQUE: Full field digital mammographic views of BOTH breasts were performed, including computer aided detection (CAD) and BILATERAL digital breast tomosynthesis (DBT). BREAST PARENCHYMAL COMPOSITION: There are scattered areas of fibroglandular density. MAMMOGRAM FINDINGS: There are changes of RIGHT breast conservation therapy. Again seen are bilateral subpectoral silicone implants. No new suspicious abnormality in EITHER breast. IMPRESSION: Changes of RIGHT breast conservation therapy without new suspicious abnormality within EITHER breast. OVERALL FINAL ASSESSMENT: BI-RADS Category 2: Benign. RECOMMENDATION: Annual screening mammography is recommended. Dictated by: Robert Quiñonez M.D. The radiology attending physician has personally reviewed this study, and had reviewed and/or edited this written report and agrees with it. Electronically signed by: Latoya De Leon M.D. Argelia Hussein MD IMG MAMMO PROCEDURES Fi nal Result documented in this encounter Visit Diagnoses Diagnosis History of breast cancer- Primary Personal history of malignant neoplasm of breast History of breast cancer Personal history of malignant neoplasm of breast documented in this encounter Orders Outpatient Referral Count Last Ordered Date Fir st Ordered Date AMB REFERRAL TO SURGICAL ONCOLOGY 1 021 documented in this encounter Care Teams Sql Ssis Developer Relationship Specialty Start Date End Date Richard Sosa MD PCP - General 09/11/16 documented as of this encounter
--- OUTSIDE RECORDS SUMMARY | 2024-06-25 14:26 | XMS_ITS | Encounter Summary ---
Author Organization [facility] Address [address] [place] [address] Phone Care Team Providers Care Technology Strategist Name Role Phone Richard Sosa MD Primary Care Provider [phone] Reason for Visit * Consultation (Routine) - Closed Specialty Diagnoses / Procedures Referred By Westley menezes Referred To Contact Surgical Oncology Diagnoses History of breast cancer Richard Sosa MD Phone: tel: fax: [facility] (All Locations) Referral ID Status Reason Start Date Expiration Date V isits Requested Visits Authorized [id number] Closed Specialty Services Required 02/16/2020 03/17/2021 99 99 Encounter Details Date Type Department Care Team (Late st Contact Info) Description 03/16/2020 8:00 AM CDT Telemedicine [facility] Surgery [facility] 5th [place] [address] [place] [id number] Argelia Hussein MD [address] [address] History of breast cancer (Primary Dx) Social History Tobacco Use Types Packs/Day Years Used Date Smoking Tobacco: Never Smokeless Tobacco: Never Alcohol Use Standard Drinks/Week Comments Yes 0 (1 standard drink = 0.6 oz pur e alcohol) Comments Unknown Sex and Gender Information Value Date Recorded Sex Assigned at Not on file 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 Argeila Hussein M.D., [facility] ?? Department of Surgery [facility] [address] ?? [place] [address] ? 03/16/2020 This was a telemedicine visit with Kirsten Marshall alone which took place via Telephone. During the visit, I was located in the office and the patient was located at work. The patient visit started at 08:00AM and ended at 08:15AM. Total encounter time was 25 minutes, which includes time spent today on pre charting, the patient encounter, and post charting. The patient has been informed that the visit may not be secure and acknowledged the information. I have explained the option of participating in a telephone or video visit during [facility] [place] [address] emergency to the patient. After being given an opportunity to ask questions about and discuss this type of visit, the patient verbally consented to proceeding with the telephone/video visit.The patient understands that this service replaces an office visit and they may be billed and/or responsible for any applicable copayments. Argelia Hussein MD CHIEF COMPLAINT: Follow-up for right breast cancer. HISTORY OF PRESENT ILLNESS: Ms. Marshall is a 60 y.o. woman who is now two and a half years status-post neoadjuvant chemotherapy followed by a right partial mastectomy and sentinel lymph node biopsy fora pathologic T1N1 invasive ductal cancer. Following her surgical therapy, she did undergo additional adjuvant chemotherapy. Following her surgical therapy, she did undergo adjuvant radiation therapy.She was not a candidate for endocrine therapy. She returns today by telemedicine for her routine visit and states that she is doing well. She denies any masses in either breast. She denies any changein the appearance of her breasts or the [...] Attention deficit disorder ??? Breast cancer (CMS/HCC) ??? IBS (irritable bowel syndrome) ??? Melanoma (CMS/HCC) excised at the age of 38 or 39 approximately Past Surgical History: Procedure Laterality Date ??? HYSTERECTOMY Hysterectomy Social History Socioeconomic History ??? Marital status: Spouse name: Not on file ??? Number of children: Not on file ??? Years of education: Not on file ??? Highest education level: Not on file Occupational History ??? Not on file Social Needs ??? Financial resource strain: Not on file ??? Food insecurity Worry: Not on file Inability: Not on file ??? Transportation needs Medical: Not on file Non-medical: Not on file Tobacco Use ??? Smoking status: Never Smoker ??? Smokeless tobacco: Never Used Substance and Sexual Activity ??? Alcohol use: Yes ??? Drug use: No ??? Sexual activity: Not on file Lifestyle ??? Physical activity Days per week: Not on file Minutes per session: Not on file ??? Stress: Not on file Relationships ??? Social connections Talks on phone: Not on file Gets together: Not on file Attends oriental orthodox service: Not on file Active member of club or organization: Not on file Attends meetings of clubs or organizations: Not on file Relationship status: Not on file ??? Intimate partner violence Fear of current or ex partner: Not on file Emotionally abused: Not on file Physically abused: Not on file Forced sexual activity: Not on file Other Topics Concern ??? 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 Three kids ranging fr 14-33 yo (as of 20 Family History Problem Relation Age of Onset ??? Other Father First [place] in his 40's, of [place]; Cause of : First [place] in his 40's, of [place] ??? Melanoma Father Melanoma - (Added by [...] comprehensive review of systems was negative. PHYSICAL EXAMINATION (limited by telemedicine visit): GENERAL: She is a well-developed, well-nourished woman in no acute distress. HEENT: Within normal limits. NECK: Neck appears supple without visible lymphadenopathy or thyromegaly. LUNGS: No audible wheezing. HEART: Regular per patient. ABDOMEN: Soft per patient. EXTREMITIES: No visible edema. NEUROLOGICAL: She is alert and oriented x 3. BREAST EXAMINATION: Bilateral breast examination reveals ptotic breasts bilaterally with obvious augmentation. The patient performed a breast examination under direction. The left breast is without any dominant masses, skin changes, nipple discharge, or axillary adenopathy per patient. The right breast reveals a well-healed incision with minimal volume loss and excellent symmetry. The right breast is without any masses, nodules, skin changes, or evidence of recurrence per patient. There is no right nipple discharge or right axillary masses per patient. IMAGING: The patient underwent bilateral diagnostic mammograms on March 08, 2020 which I personally reviewed today. She was given a category II, benign. IMPRESSION/RECOMMENDATION: Ms. Marshall is a 60 year-old woman who is now two and a half years status-post neoadjuvant chemotherapy followed by a right partial mastectomy and sentinel lymph node biopsy for a pathologic T1N1 invasive ductal cancer. Following her surgical therapy, she did undergo additional adjuvant chemotherapy. Following her surgical therapy, she did undergo adjuvant radiation therapy. She was not a candidate for endocrine therapy. I reassured her that based on her reported clinical examination and the imaging studies recently that there is no evidence of any recurrent disease or new abnormalities. I did caution her that this visit is somewhat limited by the telemedicine approach and she understands. I encouraged her to wear a good support bra to help alleviate the tenderness of radiation fibrosis. I would like to see her back in person in one year at which time we will repeat her bilateral diagnostic mammograms. In the interim, I encouraged her to resume self examinations on a monthly basis and to alert me of any changes. I answered all of her and her family's questions thoroughly, and they do seem pleased with this plan [...] Date AMB REFERRAL TO SURGICAL ONCOLOGY 1 020 documented in this encounter Care Teams Technology Strategist Relationship Specialty Start Date End Date Richard Sosa MD PCP - General 09/11/16 documented as of this encounter
--- OUTSIDE RECORDS SUMMARY | 2024-06-25 14:26 | XMS_ITS | Encounter Summary ---
Author Organization [facility] Address [address] [place] [address] Phone Care Team Providers Care Network Consultant Name Role Phone Richard Sosa MD Primary Care Provider [phone] Encounter Details Date Type Department Care Team (Late st Contact Info) Description 03/14/2020 Telephone [facility] Surgery [address] 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; could you follow up with this patient also. Thanks! ----- Message ----- From: Argelia Hussein MD Sent: 03/14/2020 7:36 AM CDT To: Diane Savage MA This patient didn't want to come in this year due to COVID and wanted to do a zoom and get her mammogram elsewhere. The notes on the schedule said she had it on 03/08. I don't want to do the zoom unless I have the radiology report. I don't see that anywhere. So please get that and let me know that we have it or I will want to reschedule this. documented in this encounter Plan of Treatment Not on file documented as of this encounter Visit Diagnoses Not on filedocumented in this encounter Care Teams Network Consultant Relationship Specialty Start Date End Date Richard Sosa MD PCP - General 09/11/16 documented as of this encounter
--- OUTSIDE RECORDS SUMMARY | 2024-06-25 14:26 | XMS_ITS | Clinical Summary ---
Author Organization [facility] Address [address] [address] Care Team Providers Care Molecular Pathologist Name Role Phone Richard Sosa MD Primary Care Provider [phone] Allergies No known active allergies Medications dextroamphetami ne-amphetamine (ADDERALL) 15 mg tablet Active ALPRAZolam (XANAX) 0.5 mg tablet 0 8 Active dextroamphetami ne-amphetamine (ADDERALL) 20 mg tablet TK 1 T PO BID BEFORE BREAKFAST AND AT NOON 0 8 Active linaclotide (LINZESS) 72 mcg capsule Active esomeprazole (NexIUM Packet) 5 mg packet Active Saccharomyces boulardii (PROBIOTIC, S.BOULARDII,) 250 mg capsule Activ e prochlorperazin e (COMPAZINE) 10 mg tablet take 1 tab every 6hrs on days 2 & 3 after chemo then every 6hrs as needed for nausea 7 Active ALPRAZolam (XANAX) 2 mg tablet Active ranitidine (ZANTAC) 150 mg capsule Active dextroamphetami ne-amphetamine (ADDERALL) 30 mg tablet TAKE 1 TABLET BY MOUTH IN THE MORNING AND 1 2 (ONE HALF) AT NOON 0 9 Active traMADol (ULTRAM) 50 mg tablet TK 1 T PO Q 6 H PRN 0 9 Active Active Problems Problem Noted Date Diagnosed Date History of breast cancer 12/18/2017 Pre-syncope 10/31/2013 Overview (10/02/2016): Pre-syncope Family history of coronary artery disease 2013 Overview (10/03/2016): Family history of premature CAD Pure hypercholesterolemia 10/31/2013 Overview (10/03/2016): PURE HYPERCHOLESTEROLEM Paroxysmal ventricular tachycardia 10/31/2013 Overview (10/03/2016): PAROX VENTRIC TACHYCARD Attention deficit disorder 10/31/2013 Overview (10/03/2016): ADHD (attention deficit hyperactivity disorder) Surgical History Surgery Date Site/Laterality Comments HYSTERECTOMY Hysterectomy Medical History Medical History Date Comments Attention deficit disorder Melanoma (HCC) excised at the a ge of 38 or 39 approximately IBS (irritable bowel syndrome) Breast cancer (HCC) Family History Medical History Relation Name Comments Melanoma Father Melanoma - (Add ed by TW Conv) Other Father First NC in his 40's, of [place]; Cause of : First NC in his 40's, of [place] Melanoma Mother Melanoma - (Add ed by TW Conv) Other Mother A&W; Ovarian cancer Mother Ovarian cance r - (Added by TW Conv) Diabetes type II Sister 2 Diabetes Ty pe II; Relation Name Status Comments Father (Age 64) Mother Alive Sister 1 Alive Sister 2 Social History Tobacco Use Types Packs/Day Years Used Date Smoking Tobacco: Never Smokeless Tobacco: Never Alcohol Use Standard Drinks/Week Comments Yes 0 (1 standard drink = 0.6 oz pur e alcohol) Comments Unknown Sex and Gender Information Value Date Recorded Sex Assigned at Not on file Legal Sex Female 4:26 PM DROP FORGER HELPER Gender Identity Female 03/21/2021 10:44 PM CDT Sexual Orientation Not on file Obstetrics History Last Filed Vital Signs Vital Sign Reading Time Taken Comments Blood Pressure 143/84 06/03/2019 10:11 AM DROP FORGER HELPER Pulse 90 06/03/2019 10:11 AM DROP FORGER HELPER Temperature 36.6 ??C (97.9 ??F) 06/03/2019 1 0:11 AM DROP FORGER HELPER Respiratory Rate 12 06/03/2019 10:1 1 AM DROP FORGER HELPER Oxygen Saturation 96% 06/03/2019 10: 11 AM DROP FORGER HELPER Inhaled Oxygen Concentration - - Weight 54.7 kg (120 lb 11.2 oz) 019 10:11 AM DROP FORGER HELPER Height 157.5 cm (5' 2.01 ) 01/07/2019 7:52 AM CD T Body Mass Index 22.07 01/07/2019 7:52 AM CDT Plan of Treatment Not on file Insurance [facility] PPO [facility] Care Teams Molecular Pathologist Relationship Specialty Start Date End Date Richard Sosa MD PCP - General 09/11/16
--- OUTSIDE RECORDS SUMMARY | 2024-06-25 14:26 | XMS_ITS | Referral Summary ---
Author Organization [facility] Address [address] [address] Care Team Providers Care Bead Wrapper Name Role Phone Richard Sosa MD Primary Care Provider [phone] Allergies No known active allergies Medications dextroamphetami [...] Overview (10/03/2016): ADHD (attention deficit hyperactivity disorder) Social History Tobacco Use Types Packs/Day Years Used Date Smoking Tobacco: Never Smokeless Tobacco: Never Alcohol Use Standard Drinks/Week Comments Yes 0 (1 standard drink = 0.6 oz pur e alcohol) Comments Unknown Sex and Gender Information Value Date Recorded Sex Assigned at Not on file Legal Sex Female 4:26 PM SHEETER WAXER OPERATOR Gender Identity Female 03/21/2021 10:44 PM CDT Sexual Orientation Not on file Last Filed Vital Signs Vital Sign Reading Time Taken Comments Blood Pressure 143/84 06/03/2019 10:11 AM SHEETER WAXER OPERATOR Pulse 90 06/03/2019 10:11 AM SHEETER WAXER OPERATOR Temperature 36.6 ??C (97.9 ??F) 06/03/2019 1 0:11 AM SHEETER WAXER OPERATOR Respiratory Rate 12 06/03/2019 10:1 1 AM SHEETER WAXER OPERATOR Oxygen Saturation 96% 06/03/2019 10: 11 AM SHEETER WAXER OPERATOR Inhaled Oxygen Concentration - - Weight 54.7 kg (120 lb 11.2 oz) 019 10:11 AM SHEETER WAXER OPERATOR Height 157.5 cm (5' 2.01 ) 01/07/2019 7:52 AM CD T Body Mass Index 22.07 01/07/2019 7:52 AM CDT Plan of Treatment Not on file Insurance [employer] [facility] HMO [facility] PPO [facility] Care Teams Bead Wrapper Relationship Specialty Start Date End Date Richard Sosa MD PCP - General 09/11/16
--- OUTSIDE RECORDS SUMMARY | 2024-06-25 14:26 | XMS_ITS | Encounter Summary ---
Author Organization [facility] Address [address] [place] [address] Phone Care Team Providers Care Bobbin Cleaning Machine Operator Name Role Phone Richard Sosa MD Primary Care Provider [phone] Encounter Details Date Type Department Care Team (Late st Contact Info) Description 12/27/2019 Telephone [facility] Oncology [address] [place] [address] Gabriela Reyes Social History Tobacco Use Types Packs/Day Years Used Date Smoking Tobacco: Never Smokeless Tobacco: Never Alcohol Use Standard Drinks/Week Comments Yes 0 (1 standard drink = 0.6 oz pur e alcohol) Comments Unknown Sex and Gender Information Value Date Recorded Sex Assigned at Not on file Legal Sex Female 4:26 PM PLACEMENT COORDINATOR Gender Identity Female 03/21/2021 10:44 PM CDT Sexual Orientation Not on file documented as of this encounter Miscellaneous Notes * Telephone Encounter - Gabriela Reyes - 12/27/2019 12:41 PM CDT lm asking if she would like to rs her 12/22 lab and waggoner appt. this call was per isidoro as an inbasket. documented in this encounter Plan of Treatment Not on file documented as of this encounter Visit Diagnoses Not on filedocumented in this encounter Care Teams Bobbin Cleaning Machine Operator Relationship Specialty Start Date End Date Richard Sosa MD PCP - General 09/11/16 documented as of this encounter
--- OUTSIDE RECORDS SUMMARY | 2024-06-25 14:26 | XMS_ITS | Encounter Summary ---
Author Organization [facility] Healthcare Address [address] [place] [address] Care Team Providers Care Presiding Steward Name Role Phone Richard Sosa MD Primary Care Provider [phone] Encounter Details Date Type Department Care Team (Latest Contact Info) Description 03/21/2020 1:22 PM CDT - 03/21/2020 11:59 PM CDT Hospital Encounter [facility] [address] [place] [address] Discharge Disposition: Discharge to home or self care Social History Tobacco Use Types Packs/Day Years Used Date Smoking Tobacco: Never Smokeless Tobacco: Never Alcohol Use Standard Drinks/Week Comments Yes 0 (1 standard drink = 0.6 oz pur e alcohol) Comments Unknown Sex and Gender Information Value Date Recorded Sex Assigned at Not on file Legal Sex Female 4:26 PM TEST DEVELOPMENT ENGINEER Gender Identity Female 03/21/2021 10:44 PM CDT Sexual Orientation Not on file documented as of this encounter Medications at Time of Discharge ALPRAZolam (XANAX) 0.5 mg tablet 0 11/07/2017 ALPRAZolam (XANAX) 2 mg tablet dextroamphetamin e-amphetamine (ADDERALL) 15 mg tablet dextroamphetamin e-amphetamine (ADDERALL) 20 mg tablet TK 1 T PO BID BEFORE BREAKFAST AND AT NOON 0 12/08/2017 dextroamphetamin e-amphetamine (ADDERALL) 30 mg tablet TAKE 1 TABLET BY MOUTH IN THE MORNING AND 1 2 (ONE HALF) AT NOON 0 11/23/2018 esomeprazole (NexIUM Packet) 5 mg packet linaclotide (LINZESS) 72 mcg capsule prochlorperazine (COMPAZINE) 10 mg tablet take 1 tab every 6hrs on days 2 & 3 after chemo then every 6hrs as needed for nausea 09/24/2016 ranitidine (ZANTAC) 150 mg capsule Saccharomyces boulardii (PROBIOTIC, S.BOULARDII,) 250 mg capsule traMADol (ULTRAM) 50 mg tablet TK 1 T PO Q 6 H PRN 0 03/18/2019 documented as of this encounter Discharge Disposition Disposition Code Departure Means Destination Discharge to home or self care documented in this encounter Plan of Treatment Not on file documented as of this encounter Procedures Procedure Name Priority Date/Time Associated Diagnosis Comments BREAST IMAGING OUTSIDE REFERENCE Schedule Routine, Read Routine (OP Routine) 03/21/2020 1:22 PM CDT documented in this encounter Results * Breast Imaging Outside Reference (03/21/2020 1:22 PM CDT) Impressions [facility] - 03/21/2020 1:22 PM CDT These images are for Reference purposes only and have not been reviewed by [facility] Radiology. ??There will be no report generated by a [facility] Radiologist. Narrative [facility] - 03/21/2020 1:22 PM CDT EXAMINATION: ??Images For Reference Purposes Only us Self Referral IMG MAMMO PROCEDURES Final Resul t [facility] documented in this encounter Visit Diagnoses Not on filedocumented in this encounter Care Teams Presiding Steward Relationship Specialty Start Date End Date Richard Sosa MD PCP - General 09/11/16 documented as of this encounter
--- OUTSIDE RECORDS SUMMARY | 2024-06-25 14:26 | XMS_ITS | Encounter Summary ---
Author Organization [facility] Address [address] [place] [address] Phone Care Team Providers Care Respooler Name Role Phone Richard Sosa MD Primary Care Provider [phone] Encounter Details Date Type Department Care Team (Late st Contact Info) Description 04/01/2022 Telephone [facility] Surgery [address] [facility] 5th [place] [address] [place] [id number] Isabela Sheppard Social History Tobacco Use Types Packs/Day Years Used Date Smoking Tobacco: Never Smokeless Tobacco: Never Alcohol Use Standard Drinks/Week Comments Yes 0 (1 standard drink = 0.6 oz pur e alcohol) Comments Unknown Sex and Gender Information Value Date Recorded Sex Assigned at Not on file Legal Sex Female 4:26 PM TOOL GRINDER OPERATOR Gender Identity Female 03/21/2021 10:44 PM CDT Sexual Orientation Not on file documented as of this encounter Miscellaneous Notes * Telephone Encounter - Isabela Sheppard - 04/01/2022 11:57 AM CDT Attempted to call pt to lula pt appointment, pt did not answer so a message with a cb number was left on vm. Please reschedule patient cancelled appointment with MARIANO. documented in this encounter Plan of Treatment Not on file documented as of this encounter Visit Diagnoses Not on filedocumented in this encounter Care Teams Respooler Relationship Specialty Start Date End Date Richard Sosa MD PCP - General 09/11/16 documented as of this encounter
--- OUTSIDE RECORDS SUMMARY | 2024-06-25 14:26 | XMS_ITS | Encounter Summary ---
Author Organization [facility] Address [address] [place] [address] Phone Care Team Providers Care Imager Name Role Phone Richard Sosa MD Primary Care Provider [phone] Encounter Details Date Type Department Care Team (Late st Contact Info) Description 01/04/2020 Telephone [facility] Oncology [address] [place] [address] Marlen Cobb, RN Social History Tobacco Use Types Packs/Day Years Used Date Smoking Tobacco: Never Smokeless Tobacco: Never Alcohol Use Standard Drinks/Week Comments Yes 0 (1 standard drink = 0.6 oz pur e alcohol) Comments Unknown Sex and Gender Information Value Date Recorded Sex Assigned at Not on file Legal Sex Female 4:26 PM SOFA COVER INSPECTOR Gender Identity Female 03/21/2021 10:44 PM CDT Sexual Orientation Not on file documented as of this encounter Miscellaneous Notes * Telephone Encounter - Marlen Cobb - 01/04/2020 8:56 AM CDT We have left 3 voicemail messages for the pt to call back and reschedule with no response. I have mailed a letter to her to please call and reschedule ----- Message from Marlen Cobb sent at 12/15/2019 8:37 AM CDT ----- Make sure pt has a f/u apt rescheduled documented in this encounter Plan of Treatment Not on file documented as of this encounter Visit Diagnoses Not on filedocumented in this encounter Care Teams Imager Relationship Specialty Start Date End Date Richard Sosa MD PCP - General 09/11/16 documented as of this encounter
--- OUTSIDE RECORDS SUMMARY | 2024-06-25 14:26 | XMS_ITS | Encounter Summary ---
Author Organization [facility] Address [address] [place] [address] Phone Care Team Providers Care Academic Support Specialist Name Role Phone Richard Sosa MD Primary Care Provider Encounter Details Date Type Department Care Team (Late st Contact Info) Description 12/20/2021 Orders Only [facility] Surgery [address] [facility] 5th [place] [address] [place] [address] Argelia Hussein MD [address] [facility] [address] [place] [id number] History of breast cancer (Primary Dx) Social History Tobacco Use Types Packs/Day Years Used Date Smoking Tobacco: Never Smokeless Tobacco: Never Alcohol Use Standard Drinks/Week Comments Yes 0 (1 standard drink = 0.6 oz pur e alcohol) Comments Unknown Sex and Gender Information Value Date Recorded Sex Assigned at Not on file Legal Sex Female 4:26 PM PROGRAM MANAGER TRANSPORTATION Gender Identity Female 03/21/2021 10:44 PM CDT Sexual Orientation Not on file documented as of this encounter Plan of Treatment Not on file documented as of this encounter Visit Diagnoses Diagnosis History of breast cancer- Primary Personal history of malignant neoplasm of breast documented in this encounter Care Teams Academic Support Specialist Relationship Specialty Start Date End Date Richard Sosa MD PCP - General 09/11/16 documented as of this encounter
--- OUTSIDE RECORDS SUMMARY | 2024-06-25 14:26 | XMS_ITS | Encounter Summary ---
Author Organization [facility] Healthcare Address [address] [place] [address] Care Team Providers Care County Supervisor Name Role Phone Richard Sosa MD Primary Care Provider [phone] Reason for Referral * Diagnostic Imaging (Routine) - Closed Specialty Diagnoses / Procedures Referred By Westley menezes Referred To Contact Diagnoses History of breast cancer Procedures Diagnostic Mammogram Bilateral W Felix W Implants Argelia Hussein MD [address] [address] Phone: tel: fax: [address] [address] Referral ID Status Reason Start Date Expiration Date Visits Re quested Visits Authorized [id number] Closed 03/20/2021 04/19/2022 1 1 Reason for Visit * Diagnostic Imaging (Routine) - Closed Specialty Diagnoses / Procedures Referred By Westley menezes Referred To Contact Diagnoses History of breast cancer Procedures Diagnostic Mammogram Bilateral W Felix W Implants Argelia Hussein MD [address] [address] Phone: tel: fax: [address] [address] Referral ID Status Reason Start Date Expiration Date Visits Re quested Visits Authorized [id number] Closed 03/20/2021 04/19/2022 1 1 Encounter Details Date Type Department Care Team (Latest Contact Info) Description 03/22/2021 10:20 AM CDT - 03/22/2021 11:59 PM CDT Hospital Encounter [facility] [address] [place] [address] Argelia Hussein MD [address] [address] History of breast cancer Discharge Disposition: Discharge to home or self care Social History Tobacco Use Types Packs/Day Years Used Date Smoking Tobacco: Never Smokeless Tobacco: Never Alcohol Use Standard Drinks/Week Comments Yes 0 (1 standard drink = 0.6 oz pur e alcohol) Comments Unknown Sex and Gender Information Value Date Recorded Sex Assigned at Not on file Legal Sex Female 4:26 PM PELT INSPECTOR Gender Identity Female 03/21/2021 10:44 PM [...] Procedure Name Priority Date/Time Associated Diagnosis Comments DIAGNOSTIC MAMMOGRAM BILATERAL W FELIX W IMPLANTS Schedule Routine, Read Routine (OP Routine) 03/22/2021 11:28 AM CDT History of breast cancer documented in this encounter Results * Diagnostic Mammogram Bilateral [...] encounter Visit Diagnoses Diagnosis History of breast cancer Personal history of malignant neoplasm of breast documented in this encounter Care Teams County Supervisor Relationship Specialty Start Date End Date Richard Sosa MD PCP - General 09/11/16 documented as of this encounter
--- OUTSIDE RECORDS SUMMARY | 2024-06-25 14:27 | XMS_ITS | Encounter Summary ---
Author Organization [facility] Address [address] [place] [address] Phone Care Team Providers Care Featheredger And Reducer Machine Name Role Phone Richard Sosa MD Primary Care Provider Encounter Details Date Type Department Care Team (Late st Contact Info) Description 01/07/2019 Orders Only [facility] Surgery [address] [facility] 5th [place] [address] [place] [address] Argelia Hussein MD [address] [facility] [address] [place] [id number] History of breast cancer (Primary Dx) Social History Tobacco Use Types Packs/Day Years Used Date Smoking Tobacco: Never Smokeless Tobacco: Never Alcohol Use Standard Drinks/Week Comments Yes 0 (1 standard drink = 0.6 oz pur e alcohol) Comments Unknown Sex and Gender Information Value Date Recorded Sex Assigned at Not on file Legal Sex Female 4:26 PM HVAC/R INSTRUCTOR Gender Identity Female 03/21/2021 10:44 PM CDT Sexual Orientation Not on file documented as of this encounter Plan of Treatment Not on file documented as of this encounter Visit Diagnoses Diagnosis History of breast cancer- Primary Personal history of malignant neoplasm of breast documented in this encounter Care Teams Featheredger And Reducer Machine Relationship Specialty Start Date End Date Richard Sosa MD PCP - General 09/11/16 documented as of this encounter
--- OUTSIDE RECORDS SUMMARY | 2024-06-25 14:27 | XMS_ITS | Encounter Summary ---
Author Organization [facility] Address [address] [place] [address] Phone Care Team Providers Care Clinical Aide Name Role Phone Richard Sosa MD Primary Care Provider [phone] Reason for Referral * Diagnostic Imaging (Routine) - Closed Specialty Diagnoses / Procedures Referred By Westley menezes Referred To Contact Diagnoses History of breast cancer Procedures Diagnostic Mammogram Bilateral W Argelia Batista MD Phone: tel: fax: [address] [address] Referral ID Status Reason Start Date Expiration Date Visits Re quested Visits Authorized [id number] Closed 05/11/2018 11/20/2019 1 1 ER BEAD 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 Reason for Visit * Reason Comments Return Patient 1 yr DX/BCT Encounter Details Date Type Department Care Team (Late st Contact Info) Description 01/07/2019 8:15 AM CDT Office Visit [facility] Surgery [facility] 5th [place] [address] [place] [id number] Argelia Hussein MD [address] [address] History of breast cancer (Primary Dx) Social History Tobacco Use Types Packs/Day Years Used Date Smoking Tobacco: Never Smokeless Tobacco: Never Alcohol Use Standard Drinks/Week Comments Yes 0 (1 standard drink = 0.6 oz pur e alcohol) Comments Unknown Sex and Gender Information Value Date Recorded Sex Assigned at Not on file 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 Gender Identity Female 03/21/2021 10:44 PM CDT Sexual Orientation Not on file documented as of this encounter Last Filed Vital Signs Vital Sign Reading Time Taken Comments Blood Pressure - - Pulse - - Temperature - - Respiratory Rate - - Oxygen Saturation - - Inhaled Oxygen Concentration - - Weight 55.3 kg (122 lb) 01/07/2019 7:52 AM CDT Height 157.5 cm (5' 2.01 ) 01/07/2019 7:52 AM CD T Body Mass Index 22.31 01/07/2019 7:52 AM CDT documented in this encounter Progress Notes * Argelia Hussein MD - 01/07/2019 9:00 AM CDT Argelia Hussein M.D., [facility] ?? Department of Surgery [address] [place] [address] ?? [place] [address] ? 01/07/19 CHIEF COMPLAINT: Follow-up for right breast cancer. HISTORY OF PRESENT ILLNESS: Ms. Marshall is a 58 y.o. woman who is now one and a half years status-post neoadjuvant chemotherapy followed by a right partial mastectomy and sentinel lymph node biopsy fora pathologic T1N1 invasive ductal cancer. Following her surgical therapy, she did undergo additional adjuvant chemotherapy. Following her surgical therapy, she did undergo adjuvant radiation therapy.She was not a candidate for endocrine therapy. She returns today for her routine visit and states that [...] resource strain: Not on file ??? Food insecurity: Worry: Not on file Inability: Not on file ??? Transportation needs: Medical: Not on file Non-medical: Not on file Tobacco Use ??? Smoking status: Never Smoker ??? Smokeless tobacco: Never Used Substance and Sexual Activity ??? Alcohol use: Yes ??? Drug use: No ??? Sexual activity: Not on file Lifestyle ??? Physical activity: Days per week: Not on file Minutes per session: Not on file ??? Stress: Not on file Relationships ??? Social connections: Talks on phone: Not on file Gets together: Not on file Attends mandaen service: Not on file Active member of club or organization: Not on file Attends meetings of clubs or organizations: Not on file Relationship status: Not on file ??? Intimate partner violence: Fear of current or ex partner: Not on file Emotionally abused: Not on file Physically abused: Not on file Forced sexual activity: Not on file Other Topics Concern ??? 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 Three kids ranging fr 14-33 yo (as of 20 Family History Problem Relation Age of Onset ??? Other Father [place] in his 40's[place]; Cause of : [place] in his 40's[place] ??? Melanoma Father Melanoma - (Added by [...] distress. HEENT: Within normal limits. NECK: Neck is supple without lymphadenopathy or thyromegaly. LUNGS: Clear. HEART: Regular. ABDOMEN: Soft without organomegaly. EXTREMITIES: Warm without edema. NEUROLOGICAL: She is alert and oriented [...] no right nipple discharge or right axillary masses. IMAGING: The patient underwent bilateral diagnostic mammograms today which I personally reviewed. She is given a category II, benign. IMPRESSION/RECOMMENDATION: Ms. Marshall is a 58 year-old woman who is now one and a half years status-post neoadjuvant chemotherapy [...] would like to see her back in one year at which time we will repeat her bilateral diagnostic mammograms. In the interim, I encouraged her to resume self examinations on a monthly basis and to alert me of any changes. I answered all of her and her 's questions thoroughly, and they do seem pleased with this plan of approach. I encouraged her to contact me in the interim if any new questions or concerns arise. Argelia Hussein MD documented in this encounter Plan of Treatment Not on file documented as of this encounter Results * Diagnostic Mammogram Bilateral W Felix (01/07/2019 8:45 AM CDT) Anatomical Region Laterality Modality Breast Bilateral Mammography 01/07/2019 9:35 AM CDT Impressions 01/07/2019 10:11 AM CDT Changes of right breast conservation therapy. ??No new suspicious abnormality within either breast. OVERALL FINAL ASSESSMENT: BI-RADS Category 2: Benign. Annual diagnostic mammography is recommended. Dictated by: Tushar Madsen M.D. The radiology attending physician has personally reviewed this study, and had reviewed and/or edited this written report and agrees with it. Electronically signed by: Anatoly Cabrera M.D. Narrative 01/07/2019 10:11 AM CDT EXAMINATION: BILATERAL DIGITAL DIAGNOSTIC MAMMOGRAM INCLUDING CAD AND BILATERAL DIGITAL BREAST TOMOSYNTHESIS HISTORY: 58-year-old woman with right breast invasive ductal carcinoma treated with breast conservation therapy in 2016. ??She recently had bilateral silicone gel implants placed. COMPARISON: 12/18/2017 TECHNIQUE: ??Full field digital mammographic views of BOTH breasts were performed, including computer aided detection (CAD) and BILATERAL digital breast tomosynthesis (DBT). BREAST PARENCHYMAL COMPOSITION: There are scattered areas of fibroglandular density. MAMMOGRAM FINDINGS: There are changes of right breast conservation therapy. ??There are new bilateral sub-pectoral silicone gel implants in place. ??There is no new suspicious abnormality within either breast. ?? Procedure Note Anatoly Cabrera MD - 01/07/2019 EXAMINATION: BILATERAL DIGITAL DIAGNOSTIC MAMMOGRAM INCLUDING CAD AND BILATERAL DIGITAL BREAST TOMOSYNTHESIS HISTORY: 58-year-old woman with right breast invasive ductal carcinoma treated with breast conservation therapy in 2016. She recently had bilateral silicone gel implants placed. COMPARISON: 12/18/2017 TECHNIQUE: Full field digital mammographic views of BOTH breasts were performed, including computer aided detection (CAD) and BILATERAL digital breast tomosynthesis (DBT). BREAST PARENCHYMAL COMPOSITION: There are scattered areas of fibroglandular density. MAMMOGRAM FINDINGS: There are changes of right breast conservation therapy. There are new bilateral sub-pectoral silicone gel implants in place. There is no new suspicious abnormality within either breast. IMPRESSION: Changes of right breast conservation therapy. No new suspicious abnormality within either breast. OVERALL FINAL ASSESSMENT: BI-RADS Category 2: Benign. Annual diagnostic mammography is recommended. Dictated by: Tushar Madsen M.D. The radiology attending physician has personally reviewed this study, and had reviewed and/or edited this written report and agrees with it. Electronically signed by: Anatoly Cabrera M.D. us Argelia Hussein MD IMG MAMMO PROCEDURES Fi nal Result documented in this encounter Visit Diagnoses Diagnosis History of breast cancer- Primary Personal history of malignant neoplasm of breast History of breast cancer Personal history of malignant neoplasm of breast documented in this encounter Care Teams Clinical Aide Relationship Specialty Start Date End Date Richard Sosa MD PCP - General 09/11/16 documented as of this encounter
--- OUTSIDE RECORDS SUMMARY | 2024-06-25 14:27 | XMS_ITS | Encounter Summary ---
Author Organization [facility] Address [address] [place] [address] Phone Care Team Providers Care Fairground Operator Name Role Phone Richard Sosa MD Primary Care Provider [phone] Encounter Details Date Type Department Care Team (Late st Contact Info) Description 11/11/2018 Orders Only [facility] Oncology [address] [place] [address] Litzy Gtz BS Clinical trial participant (Primary Dx) Social History Tobacco Use Types Packs/Day Years Used Date Smoking Tobacco: Never Smokeless Tobacco: Never Alcohol Use Standard Drinks/Week Comments Yes 0 (1 standard drink = 0.6 oz pur e alcohol) Comments Unknown Sex and Gender Information Value Date Recorded Sex Assigned at Not on file 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
--- OUTSIDE RECORDS SUMMARY | 2024-06-25 14:27 | XMS_ITS | Encounter Summary ---
Author Organization [facility] Address [address] [place] [address] Phone Care Team Providers Care Capacitor Assembler Name Role Phone Richard Sosa MD Primary Care Provider [phone] Encounter Details Date Type Department Care Team (Late st Contact Info) Description 12/06/2019 Orders Only [facility] Oncology [address] [place] [address] Litzy Gtz BS Clinical trial participant (Primary Dx) Social History Tobacco Use Types Packs/Day Years Used Date Smoking Tobacco: Never Smokeless Tobacco: Never Alcohol Use Standard Drinks/Week Comments Yes 0 (1 standard drink = 0.6 oz pur e alcohol) Comments Unknown Sex and Gender Information Value Date Recorded Sex Assigned at Not on file 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
--- OUTSIDE RECORDS SUMMARY | 2024-06-25 14:27 | XMS_ITS | Encounter Summary ---
Author Organization [facility] Healthcare Address [address] [place] [address] Care Team Providers Care Park Keeper Name Role Phone Richard Sosa MD Primary Care Provider [phone] Encounter Details Date Type Department Care Team (Latest Contact Info) Description 02/11/2017 8:54 AM CDT - 02/11/2017 4:33 PM CDT Hospital Encounter [facility] OP INTERIM [phone] Eva Hussein MD [phone] [address] Discharge Disposition: Discharge to home or self care Social History Tobacco Use Types Packs/Day Years Used Date Smoking Tobacco: Never Alcohol Use Standard Drinks/Week Comments Yes 0 (1 standard drink = 0.6 oz pur e alcohol) Comments Unknown Sex and Gender Information Value Date Recorded Sex Assigned at Not on file 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 Gender Identity Female 03/21/2021 10:44 PM CDT Sexual Orientation Not on file documented as of this encounter Medications at Time of Discharge prochlorperazine (COMPAZINE) 10 mg tablet take 1 tab every 6hrs on days 2 & 3 after chemo then every 6hrs as needed for nausea 09/24/2016 documented as of this encounter Discharge Disposition Disposition Code Departure Means Destination Discharge to home or self care documented in this encounter Miscellaneous Notes * Op Note - ProviderDestin MD - 02/11/2017 12:00 AM CDT [facility] Patient: KIRSTEN MARSHALL Account: [id number] Room No: : 1960 Proc. Date: 02/11/2017 Surgeon: EVA HUSSEIN M.D. Admit Date: 02/11/2017 Disch. Date: 02/11/2017 Patient Type: SDS OPERATIVE REPORT SURGEON Eva Hussein MD FIRST SQL REPORT DEVELOPER Glendy Clark. ANESTHESIA General endotracheal anesthesia. PREOPERATIVE DIAGNOSIS Right breast cancer. POSTOPERATIVE DIAGNOSIS Right breast cancer. PROCEDURE 1. Injection of Lymphazurin blue dye to right breast. 2. Right sentinel lymph node biopsy. 3. Right needle bracketed localization partial mastectomy. INDICATION FOR PROCEDURE Ms. Marshall is a 56-year-old woman who was found to have a right breast cancer in the upper outer quadrant. She underwent neoadjuvant chemotherapy and had an excellent clinical response. I did feel that she was a candidate for attempted breast conservation for which she was highly motivated. She presents today for that purpose as well as a sentinel node biopsy for axillary staging. FINDINGS The patient had a right sentinel node procedure which identified 4 sentinel lymph nodes. They were grossly normal. The right partial mastectomy was performed with a 2-needle bracketed localization. Specimen radiograph demonstrated that the cancer was included in the specimen. However there were some spiculation towards the superolateral margin. Therefore I did take a new margin at that location. STEPS OF THE PROCEDURE Ms. Marshall was first taken to the [facility] where she underwent needle localization of her cancer using a 2 needle bracketed approach. She was then taken to the Nuclear Medicine Department where she underwent radioactive colloid injection and lymphoscintigraphy. She was then brought to the operating room and placed supine on the operating room table. Bilateral sequential compression devices were applied to both lower extremities and a single dose of Ancef 2 g was administered intravenously 20 minutes prior to the incision time. General anesthesia was then initiated and the patient was prepped and draped in the standard surgical fashion. 5 mL of Lymphazurin blue dye was injected in the right retroareolar breast and a 5 minute breast massage was performed. Because of the upper outer quadrant nature of her tumor, I did feel that we would be able to perform both the partial mastectomy and sentinel node through the same incision. Therefore we began with the partial mastectomy. A curvilinear incision was made between the 2 wire insertion sites in the upper outer quadrants. This was carried down through the dermis with electrocautery. A superior flap was created up to the more superior wire which was delivered into the wound and this was taken down through the pectoralis fascia. An inferior flap was created down to the more inferior wire which was delivered into the wound and this was also taken down to the pectoralis fascia. Once the superior and inferior flaps were created, the medial and lateral flaps were made to join these 2 troughs. Once all 4 flaps were created, the breast tissue was removed from the posterior attachments using electrocautery. Of note, the deep margin did represent the pectoralis fascia. The specimen was then marked with a short stitch on the superior margin and a long stitch on the lateral margin and was sent back to the [facility]. Specimen radiograph demonstrated that the cancer was included in the specimen. However there were some spiculations towards the superolateral margin. Therefore I did take a new superolateral margin and marked it with a stitch on the true margin. It was passed off the field. Through the partial mastectomy cavity, we then incised the clavipectoral fascia along the pectoralis muscle. This was carried down to a blue lymphatic which we followed down to 4 adjacent blue lymph nodes. Three of these were also radioactive while the 4th was only blue. Each was excised in succession and passed off the field. No other blue lymph nodes were identified and only background counts were obtained with the navigator probe. No other palpable adenopathy was appreciated. Attention was then turned to the wound. Aggressive hemostasis was attained with electrocautery. The wound was irrigated with copious amounts of sterile saline. The deep dermal layer was then reapproximated with interrupted 3-0 Vicryl stitches. The skin was reapproximated with a running subcuticular using 4-0 Monocryl. Surgical Blue dressing was applied. The patient tolerated this procedure well, was awakened, and transferred to the recovery room. SPECIMENS REMOVED 1. The right partial mastectomy which was marked with a short stitch on the superior margin and a long stitch on the lateral margin. 2. The right new superolateral margin which was marked with a stitch on the true margin. 3. The right sentinel lymph nodes. ESTIMATED BLOOD LOSS Minimal. IV FLUIDS 1 L of crystalloid. COUNTS Sponge, instrument, and needle counts were correct at the end of the procedure. CONDITION OF PATIENT ON DISCHARGE FROM THE OPERATING ROOM Stable. Please note that I, Dr. Hussein, was present and scrubbed for the entire procedure from the time of skin incision through the time of skin closure. Electronically Authenticated by: Eva Hussein MD On 02/13/2017 06:38 AM CDT EVA HUSSEIN M.D. MEREDITH/elizabeth TD: 02/11/2017 21:08 documented in this encounter Plan of Treatment Not on file documented as of this encounter Procedures Procedure Name Priority Date/Time Associated Diagnosis Comments RADIOLOGIC EXAMINATION OF SURGICAL SPECIMEN Routine 02/11/2017 7:47 PM CDT US UNLISTED PROCEDURE LYMPH SYSTEM Routine 02/11/2017 4:28 PM CDT US GUIDED BREAST BIOPSY Routine 02/11/2017 4:09 PM CDT SURGICAL PATHOLOGY Routine 02/11/2017 2: 27 PM CDT SURGICAL PATHOLOGY 02/11/2017 12 :00 AM CDT documented in this encounter Results * Radiologic Examination of Surgical Specimen (02/11/2017 7:47 PM CDT) Anatomical Region Laterality Modality Breast N/A Mammography 02/11/2017 7:47 PM CDT Narrative 02/11/2017 7:47 PM CDT SUHAIL CORRAL M.D. PATRICIA SANTACRUZ M.D. FINAL REPORT The radiology attending physician has personally reviewed this study, and has reviewed and/or edited this written report and agrees with it. ACC# ??Date Time ??Exam [id number] Feb 11, 2017 14:47:00 [id number] Rad Exam Surgical Specimen R EXAMINATION: ?? Association of Exams IMPRESSION: ? The report for this examination is included in the report for RIGHT BREAST BRACKETED WIRE LOCALIZATION (2 WIRES) UTILIZING DIGITAL MAMMOGRAPHIC GUIDANCE AND SURGICAL SPECIMEN RADIOGRAPH, for the above- named patient. ??Please refer to that report for the results of this examination. Requested By: EVA HUSSEIN ??M.D. ? Dictated By: ?? PATRICIA SANTACRUZ M.D. ??on Feb 11 2017 ??3:09P This document has been electronically signed by: SUHAIL CORRAL M.D. on Feb 11 2017 ??3:53P Procedure Note Miscellaneous, Not In File / Provider, MD Destin - 02/11/2017 Meri KHAN M.D. FINAL REPORT The radiology attending physician has personally reviewed this study, and has reviewed and/or edited this written report and agrees with it. ACC# Date Time Exam [id number] Feb 11, 2017 14:47:00 [id number] Rad Exam Surgical Specimen R EXAMINATION: Association of Exams IMPRESSION: The report for this examination is included in the report for RIGHT BREAST BRACKETED WIRE LOCALIZATION (2 WIRES) UTILIZING DIGITAL MAMMOGRAPHIC GUIDANCE AND SURGICAL SPECIMEN RADIOGRAPH, for the above- named patient. Please refer to that report for the results of this examination. Requested By: EVA HUSSEIN M.D. Dictated By: PATRICIA SANTACRUZ M.D. on Feb 11 2017 3:09P This document has been electronically signed by: SUHAIL CORRAL M.D. on Feb 11 2017 3:53P us Not In File Miscellaneous IMG MAMMO PROCEDURES F inal Result * US Unlisted Procedure Lymph System (02/11/2017 4:28 PM CDT) Anatomical Region Laterality Modality Entire body N/A Ultrasound 02/11/2017 4:28 PM CDT Narrative 02/11/2017 4:28 PM CDT MD CATRACHITA ATWOOD M.D. FINAL REPORT The radiology attending physician has personally reviewed this study, and has reviewed and/or edited this written report and agrees with it. ACC# ??Date Time ??Exam [id number] Feb 11, 2017 11:28:00 [id number] Lymphoscint ACC# ??Date Time ??Exam [id number] Feb 11, 2017 11:28:00 [id number] Lymphoscint EXAMINATION: ?BREAST LYMPHOSCINTIGRAPHY DATE OF STUDY: ??02/11/2017 RADIOPHARMACEUTICAL: ??506.91 uCi Tc-99m Tilmanocept intradermally HISTORY: ??56-year-old woman with right breast cancer who is planned to undergo right sentinel lymph node biopsy on the same day. TECHNIQUE: ??The tracer was injected intradermally in the periareolar region of the right breast at the 11 o? ? clock position. FINDINGS: ??Images were obtained beginning at 10 minutes after injection in anterior and right lateral projections. Intense tello uptake is seen in 1 node located in the right axillary area. ??Fainter tello uptake is seen in 2 nodes located in the right axillary area. The nodes are seen along a single lymphatic channel. Focus of uptake in the region of the left neck was due to contamination ?? from a gauze swab used to clean the injection site, and was not seen after changing the patient's gown. ?? IMPRESSION: ?? Three sentinel nodes identified as described above for subsequent intraoperative removal with gamma probe guidance. ?? Requested By: EVA HUSSEIN M.D. Dictated By: ?? CATRACHITA ARY M.D. ??on Feb 11 2017 12:09P This document has been electronically signed by: SHADY REYES MD on Feb 11 2017 12:23P [id number] CATRACHITA ATWOOD M.D. FINAL REPORT The radiology attending physician has personally reviewed this study, and has reviewed and/or edited this written report and agrees with it. Attending: ??JANESSA, ??EVA Requesting: ??JANESSA, ??EVA Requesting Fax: ?? Attending Fax: ?? Attending ID: ??[id number] Requesting ID: ??[id number] Report To 1 ID: ??[id number] ? Report To 1 Name: ??, ?? Report To 1 FAX: ?? NextGen Order #: ?? Procedure Note Miscellaneous, Not In File - 04/25/2017 MD CATRACHITA ATWOOD M.D. FINAL REPORT The radiology attending physician has personally reviewed this study, and has reviewed and/or edited this written report and agrees with it. ACC# Date Time Exam [id number] Feb 11, 2017 11:28:00 [id number] Lymphoscint ACC# Date Time Exam [id number] Feb 11, 2017 11:28:00 [id number] Lymphoscint EXAMINATION: BREAST LYMPHOSCINTIGRAPHY DATE OF STUDY: 02/11/2017 RADIOPHARMACEUTICAL: 506.91 uCi Tc-99m Tilmanocept intradermally HISTORY: 56-year-old woman with right breast cancer who is planned to undergo right sentinel lymph node biopsy on the same day. TECHNIQUE: The tracer was injected intradermally in the periareolar region of the right breast at the 11 o? ? clock position. FINDINGS: Images were obtained beginning at 10 minutes after injection in anterior and right lateral projections. Intense tello uptake is seen in 1 node located in the right axillary area. Fainter tello uptake is seen in 2 nodes located in the right axillary area. The nodes are seen along a single lymphatic channel. Focus of uptake in the region of the left neck was due to contamination from a gauze swab used to clean the injection site, and was not seen after changing the patient's gown. IMPRESSION: Three sentinel nodes identified as described above for subsequent intraoperative removal with gamma probe guidance. Requested By: EVA HUSSEIN M.D. Dictated By: CATRACHITA RAY M.D. on Feb 11 2017 12:09P This document has been electronically signed by: SHADY REYES MD on Feb 11 2017 12:23P [id number] CATRACHITA ATWOOD M.D. FINAL REPORT The radiology attending physician has personally reviewed this study, and has reviewed and/or edited this written report and agrees with it. Attending: EVA HUSSEIN Requesting: EVA HUSSEIN Requesting Fax: Attending Fax: Attending ID: [id number] Requesting ID: [id number] Report To 1 ID: [id number] Report To 1 Name: , Report To 1 FAX: NextGen Order #: [id number] Eva Hussein MD IMG US PROCEDURES Edite d Result - Final * US Guided Breast Biopsy (02/11/2017 4:09 PM CDT) Anatomical Region Laterality Modality Breast N/A Ultrasound 02/11/2017 4:09 PM CDT Narrative 02/11/2017 4:09 PM CDT SUHAIL CORRAL M.D. PATRICIA SANTACRUZ M.D. FINAL REPORT The radiology attending physician has personally reviewed this study, and has reviewed and/or edited this written report and agrees with it. ACC# ??Date Time ??Exam [id number] Feb 11, 2017 11:09:00 WMM [id number] Needle Loc Mamm Guide R R ACC# ??Date Time ??Exam [id number] Feb 11, 2017 11:09:00 WMM [id number] Needle Loc Mamm Guide R R EXAMINATION: ?? RIGHT BREAST BRACKETED WIRE LOCALIZATION (2 WIRES) UTILIZING DIGITAL MAMMOGRAPHIC GUIDANCE AND SURGICAL SPECIMEN RADIOGRAPH. HISTORY: 56-year-old woman with biopsy-proven invasive carcinoma of the posterior upper outer right breast status post neoadjuvant chemotherapy. Bracketed wire localization is requested prior to surgical excision. COMPARISON: Priors performed 01/13/2017 and additional studies dating back to 01/21/2013. PROCEDURE AND FINDINGS: The procedure was discussed with the patient and informed consent was obtained. The breast was placed in a compression grid, and the area of interest was localized with digital mammography. ?? After sterile preparation of the skin, 1% lidocaine was utilized for local anesthesia. Two hook-wire systems were successively advanced into the breast at the anterior and posterior aspects of the area of interest (calcifications anteriorly and residual mass from biopsy proven malignancy posteriorly) from a superior approach utilizing digital mammographic guidance. Orthogonal views were obtained to confirm appropriate needle/wire positions. The patient tolerated the procedure well and there was no evidence of immediate complication. The images were marked for the surgeon, and the patient was transferred to the operating suite for surgical excision. A surgical specimen was subsequently received from the operating room and digital radiography was performed. The calcifications of interest are included within the surgical specimen. The mass of interest is also included within the surgical specimen but appears to approach the upper left surgical margin on the specimen radiograph. These findings were communicated to the surgeon. The attending radiologist, Dr. Corral, was present throughout the entire procedure. Dr. Santacruz (diagnostic nursing resident) also participated in this examination. ?? IMPRESSION: ?Successful bracketed wire localization of the area of interest within the right breast utilizing digital mammographic guidance. ?? Requested By: EVA HUSSEIN ??Meri ? Dictated By: ?? PATRICIA SANTACRUZ M.D. ??on Feb 11 2017 ??2:43P This document has been electronically signed by: SUHAIL CORRAL M.D. on Feb 11 2017 ??2:54P [id number] Procedure Note Miscellaneous, Not In File / Provider, MD Destin - 02/11/2017 SUHAIL CORRAL M.D. PATRICIA SANTACRUZ M.D. FINAL REPORT The radiology attending physician has personally reviewed this study, and has reviewed and/or edited this written report and agrees with it. ACC# Date Time Exam [id number] Feb 11, 2017 11:09:00 [place] [address] Needle Loc Mamm Guide R R ACC# Date Time Exam [id number] Feb 11, 2017 11:09:00 WMM 74165 Needle Loc Mamm Guide R R EXAMINATION: RIGHT BREAST BRACKETED WIRE LOCALIZATION (2 WIRES) UTILIZING DIGITAL MAMMOGRAPHIC GUIDANCE AND SURGICAL SPECIMENRADIOGRAPH. HISTORY: 56-year-old woman with biopsy-proven invasive carcinoma of the posterior upper outer right breast status post neoadjuvant chemotherapy. Bracketed wire localization is requested prior to surgical excision. COMPARISON: Priors performed 01/13/2017 and additional studies dating back to 01/21/2013. PROCEDURE AND FINDINGS: The procedure was discussed with the patient and informed consent was obtained. The breast was placed in a compression grid, and the area of interest was localized with digital mammography. After sterile preparation of the skin, 1% lidocaine was utilized for local anesthesia. Two hook-wire systems were successively advanced into the breast at the anterior and posterior aspects of the area of interest (calcifications anteriorly and residual mass from biopsy proven malignancy posteriorly) from a superior approach utilizing digital mammographic guidance. Orthogonal views were obtained to confirm appropriate needle/wire positions. The patient tolerated the procedure well and there was no evidence of immediate complication. The images were marked for the surgeon, and the patient was transferred to the operating suite for surgical excision. A surgical specimen was subsequently received from the operating room and digital radiography was performed. The calcifications of interest are included within the surgical specimen. The mass of interest is also included within the surgical specimen but appears to approach the upper left surgical margin on the specimen radiograph. These findings were communicated to the surgeon. The attending radiologist, Dr. Corral, was present throughout the entire procedure. Dr. Santacruz (diagnostic nursing resident) also participated in this examination. IMPRESSION: Successful bracketed wire localization of the area of interest within the right breast utilizing digital mammographicguidance. Requested By: EVA HUSSEIN M.D. Dictated By: PATRICIA SANTACRUZ M.D. on Feb 11 2017 2:43P This document has been electronically signed by: SUHAIL CORRAL M.D. on Feb 11 2017 2:54P [id number] us Not In File Miscellaneous IMG US PROCEDURES Mariah l Result * Surgical pathology (02/11/2017 2:27 PM CDT) 02/11/2017 2:27 PM CDT 02/11/2017 7:28 PM CDT Narrative 02/20/2017 1:05 PM CDT [facility] [place] [address] SURGICAL PATHOLOGY REPORT CORRECTED REPORT FINAL WITH ADDENDUM Patient Name: KIRSTEN MARSHALL ? Address: [address] [place] [address] ??Service: ??Surgery ??[place], [place] ??[address] ??Location: ??[facility] Taken: 02/11/2017 Gender: F ?? Received: 02/11/2017 : 1960 (Age: 56) ??Hospital #: [id number] Accessioned: 02/12/2017 ?Patient Type: ??WC SDS Reported: 02/20/2017 ?Client ? [facility] ? Physician(s): Eva Hussein M.D. ? Diagnosis: THIS REPORT CONTAINS A CHANGE FROM THE PREVIOUS REPORT CURRENT DIAGNOSIS: . ??Breast, right, post neoadjuvant therapy, partial mastectomy ? - Invasive ductal carcinoma of no special type ? - Greatest microscopic dimension = 9 mm - With treatment effect - Margins are negative for carcinoma (nearest = lateral, 4 mm) - See synoptic report and comment ? - Prior biopsy site - Microcysts - Duct ectasia B. ??Lymph nodes, right axillary, sentinel, postneoadjuvant therapy, excision ? - Metastatic carcinoma present in one of four lymph nodes (1/4) ? - Metastatic focus measures 2.1 mm by calibrated photomicroscopy ? - No extranodal extension C. ??Breast, right, new superior lateral margin, excision ? - Benign breast tissue with no evidence of malignancy, including at new margin THE PREVIOUSLY REPORTED DIAGNOSIS FOLLOWS: DIAGNOSIS: ?? A. ??Breast, right, post neoadjuvant therapy, partial mastectomy ? - Invasive ductal carcinoma of no special type ? - Greatest microscopic dimension = 9 mm - With treatment effect - Margins are negative for carcinoma (nearest = lateral, 4 mm) - See synoptic report and comment ? - Prior biopsy site - Microcysts - Duct ectasia B. ??Lymph nodes, left axillary, sentinel, postneoadjuvant therapy, excision ? - Metastatic carcinoma present in one of four lymph nodes (1/4) ? - Metastatic focus measures 2.1 mm by calibrated photomicroscopy ? - No extranodal extension C. ??Breast, right, new superior lateral margin, excision ? - Benign breast tissue with no evidence of malignancy, including at new margin zxl/02/16/2017 19:11 By this signature, I attest that the above diagnosis is based upon my personal examination of the slides(and/or other material indicated in the diagnosis). ?? Alexy Cosby M.D., Ph.D. ??Report Electronically Reviewed and Signed Out By ??Alexy Cosby M.D., Ph.D. 02/20/2017 13:05:23 Intraoperative Consultation: Collected at 14:27 on 02/11/2017, and brought to the frozen section area at 14:55 on 02/11/2017, is a specimen labeled 1 right breast partial mastectomy consisting of an oriented piece of breast tissue with localization wire measuring 4.4 cm superior to inferior x 6.0 cm medial to lateral x 1.2 cm anterior to posterior. ??Ink is applied as: posterior - black; anterior - yellow; superior - blue; inferior - green. ??Sectioned to show a firm white mass 0.5 x 0.5 cm lateral portion, 0.5 cm from posterior and 1.0 cm from superior margin. Formalin fixation time starts at 15:15 on 02/11/2017. ??All for permanents, by Lucia Glez M.D. ? Microscopic Description and Comment: Microscopic examination substantiates the above stated diagnosis. Permanent sections confirm the gross intraoperative consult findings. Metaplastic features are not apparent, although the tumor does show dramatic cytologic atypia. Given the prior triple negative status, immunohistochemical studies for breast biomarkers and HER-2/belle expression are ordered on block A7 and the results will be reported in an addendum. Microscopic slide review and interpretation for this case was performed at [facility], Department of Surgical Pathology, [address] [facility] [address], [phone], ??[facility], [place] ??[address] ?? CLIA # [id number] ?Brayan Morton MD, PhD ?History: The patient is a 56-year-old who has invasive ductal carcinoma in the right breast, status post neoadjuvant chemotherapy. ??Operative procedure: Right partial mastectomy and right sentinel lymph node biopsy. Specimen(s) Received: A: Right partial mastectomy B: Right sentinel lymph nodes C: Right new superior lateral margin Gross Description: The specimens are received in three formalin filled containers each labeled with Kirsten Marshall . ? A. ??The first container is also labeled right breast partial mastectomy . ??It contains a piece of yellow lobular mammary tissue with orienting sutures (superior-short; lateral-long) that measures 4.4 cm from superior to inferior, 6.0 cm from medial to lateral, and 1.2 cm from anterior to posterior. ??The specimen weighs 24.6 grams. ??A needle localization wire is protruding from the anterior portion of specimen. ??Inked as follows: Anterior-yellow; posterior-black; superior-blue; inferior- green. Serially sectioned to show a firm hernandez-white mass in the lateral portion of specimen that measures 0.5 x 0.5 cm and is located 0.7 cm from the most lateral aspect of the specimen, 2.1 cm from the medial aspect of specimen, 0.4 cm from the nearest posterior margin, 1.0 cm from the nearest superior margin, 1.2 cm from the nearest inferior margin, and grossly abuts the anterior margin. ??The lesion is located in the most lateral slice, slice #6. ??The remainder of the breast tissue is yellow, lobular, and unremarkable. ??Approximately 70% of the entire tissue will be submitted. ??Labeled A1 to A3-radial sections of medial margin; A4 to A6-radial sections of lateral margin, concerning for tumor involvement; A7 to A9-slice #5, with tumor, entirely submitted; A10 to Z03-jjcwv #4, with tumor, entirely submitted; B50-fwolhisuhw breast from slice #4; D89-bkkthwwxpl breast from slice #2. ??Jar 2. Formalin fixation time = 28.5 hours. B. ? The second container is labeled right sentinel lymph node . ??It holds 4 pieces of fibroadipose tissue that measure in aggregate 1.6 x 1.6 x 0.4 cm. ??Appear to be four distinct lymph nodes. ??Labeled B1-three separate lymph nodes wholly submitted; B2-one lymph node, bisected. ??Jar 0. C. ? The third container is labeled right new superior lateral margin stitch at margin . ??It holds a piece of yellow lobular mammary tissue that measures 2.2 x 1.4 x 0.5 cm. ??There is a stitch marking the margin. ??This margin is inked blue. ??Specimen serially sectioned and entirely submitted. ??Labeled C1 to C3-specimen radially sectioned to inked margin and entirely submitted. ??Jar 0. /02/13/2017 07:13 ?Dar Cole M.D. ? SYNOPTIC REPORT FOR INVASIVE CARCINOMA OF THE BREAST Procedure: ?Excision without wire-guided localization ? Lymph node sampling: ?[place] lymph node(s) ? Specimen laterality: ?Right ? Tumor site invasive carcinoma: ?Upper outer quadrant ? Histologic type of invasive carcinoma: ?Invasive ductal carcinoma (no special type or not otherwise specified) ? Largest focus of invasive carcinoma: ?Greatest dimension: 9mm ? Histologic grade: ?Tubular differentiation: ??Score 2 ? Nuclear pleomorphism: ??Score 3 ? Mitotic rate: Score 1 ? Mitoses per 10 high-power bedoya: 5 ? Diameter of microscope field: 0.55 mm ? Overall grade: Grade 2: scores of 6 or 7 ? Tumor focality: ?Single focus of invasive carcinoma ? Ductal carcinoma in situ (DCIS): ?No DCIS is present ? Margins for invasive carcinoma: ?Margins uninvolved by invasive carcinoma ?Distance from closest margin: 4 mm ?Margin: lateral ?Distance from anterior margin: 6 mm ?Distance from superior margin: 5 mm ? Margins for DCIS: ?DCIS not present ? Lymph nodes: ?Total number of lymph nodes examined (sentinel and nonsentinel): 4 ? Number of sentinel nodes examined: 4 ? Lymph node involvement: ?Number of lymph nodes with macrometastases (>2 mm):1 ? Size of largest metastatic deposit: 2.1 mm ? Extranodal extension: ?Not identified ? [place] node evaluation: ?H&E, multiple levels ? Response to presurgical therapy: ?In the breast: ??Probable or definite response to presurgical therapy ? In the lymph nodes: ??No definite response to presurgical therapy in metastatic carcinoma ? Lymph-vascular invasion: ?Not identified ? Dermal lymph-vascular invasion: ?No skin present ? Pathologic staging (pTNM): TNM descriptors: ?y (posttreatment) ? Primary tumor (invasive carcinoma) (pT): ? pT1b: Tumor >5 mm but <=10 mm in greatest dimension ? Regional Lymph Nodes (pN): ?Modifier: ??(sn): Only sentinel node(s) evaluated. ? Category (pN): ?pN1a: Metastases in 1 to 3 axillary lymph nodes, at least 1 metastasis greater than 2.0 mm ? Distant metastasis (pM): ?Not applicable ? Microcalcifications: ?Not identified ? The pathologic stage assigned here should be regarded as provisional, and may change after integration of clinical data not provided with this report. By this signature, I attest that the above diagnosis is based upon my personal examination of the slides(and/or other material). ?? Corrections ??Corrected: ??02/20/2017 ?Previous Signout Date: ??02/17/2017 Comment: ??This case was amended to correct the site in the final diagnoisis. The specimen was changed from left axillary, sentinel lymph nodes to right axillary, sentinel lymph nodes. Addenda/Procedures Addendum Ordered: 02/20/2017 Status: Signed Out Addendum Complete: 02/20/2017 By: Alexy Cosby M.D., Ph.D. Addendum Signed Out: 02/20/2017 ?? Addendum Diagnosis ? BREAST BIOMARKER RESULTS ESTROGEN RECEPTOR: ?Negative Sami Score: ?Proportion ??0/5 ? Intensity ??0/3 ? Total Score 0/8 PROGESTERONE RECEPTOR: ?Negative Sami Score: ?Proportion ??0/5 ? Intensity ??0/3 ? Total Score 0/8 HER-2: ?Negative (score 0 by IHC) ? TUMOR HISTOLOGIC TYPE: ?Invasive ductal carcinoma (no special type) ? HISTOLOGICAL GRADE BY ESBR CRITERIA: ?3 ? Technical Notes Estrogen Receptor (ER), Progesterone Receptor (LA), and HER2 were evaluated by immunohistochemistry (IHC) by morphometric analysis in routine formalin-fixed paraffin-embedded tissue using a proprietary polymer based detection system and instrumentation by [employer] per monogram and letter paster's recommendation. The IHC results for ER (antibody SP1) and LA (antibody 1E2) were quantified and interpreted (positive vs negative) using the Sami Score (total score range = 0 to 8; positive >2) (see: Modern Pathol 11:155, 1998; J Clin Oncol 17:1474, 1998; Modern Pathol 17:1545, 2004). Pathway Her2 is a trademark of [employer] The IHC results for Pathway Her2 (antibody 4B5), rabbit monoclonal antibody were scored in compliance with the ASCO/CAP guidelines (see: J Clin Oncol. 25:118, 2007; Arch Pathol Lab Med 131:18, 2007). Sami score for Estrogen and Progesterone Receptor Evaluation: The Sami score combines the percentage of positive cells [proportion score: 0 (0%), 1 (<1%), 2 (1-10%), 3 (11- 33%), 4 (34-66%), 5 (>67%)] and the intensity of the reaction product (intensity score: 0-3). ??The two scores are added together for a final score. ??A combined score of >2 is considered positive. Her2 Interpretation guide Score 0: No membrane staining is observed, or immunoreactivity in =10% of tumor cells; score 1+: faint, partial membrane staining in >10% of tumor cells; score 2+: weak to moderate circumferential membrane staining in >10% of tumor cells; score 3+: intense and uniform circumferential membrane staining in >10% of tumor cells. ??A strong membranous (chicken-wire) pattern should be present. Tests with score of 0 or 1+ are reported negative. ??A score of 2+ is reported as equivocal and score of 3+ is positive. ??Reflex FISH testing is performed for all 2+ results. Control expression, sample adequacy and uniformity of staining are all assessed. ??The duration of formalin fixation is reported in the gross description on the primary report. ??This assay has not been validated on decalcified tissues. Results should be interpreted with caution given the likelihood of false negativity on decalcified specimens. By this signature, I attest that the above diagnosis is based upon my personal examination of the slides(and/or other material indicated in the diagnosis). ?? Alexy Cosby M.D., Ph.D. ??Report Electronically Reviewed and Signed Out By ??Alexy Cosby M.D., Ph.D. ??02/20/2017 13:49:50 ??Brayan Morton MD, PhD ? Surgical Pathology report is available electronically in Clinical Desktop. The performance characteristics of some immunohistochemical stains, fluorescence in-situ hybridization tests and immunophenotyping by flow cytometry cited in this report (if any) were determined by the Surgical Pathology Department at [facility] as part of an ongoing quality assurance tester program and in compliance with federally mandated regulations drawn from the Clinical Laboratory Improvement Act of 1988 (CLIA '88). ??Some of these tests rely on the use of analyte specific reagents and are subject to specific labeling requirements by the US Food and Drug Administration. ??Such diagnostic tests may only be performed in a facility that is certified by the Department of Health and Human Services as a high complexity laboratory under CLIA '88. ??The FDA has determined that such clearance or approval is not necessary. ??This test is used for clinical purposes. ??It should not be regarded as investigational or for research. ??Nevertheless, federal rules concerning the medical use of analyte specific reagents require that the following disclaimer be attached to the report: This test was developed and its performance characteristics determined by the Surgical Pathology Department of [facility]. ??It has not been cleared or approved by the U. S. Food and Drug Administration. Eva Hussein MD LAB PATHOLOGY ORDERABLE S Edited Result - Final * SURGICAL PATHOLOGY (02/11/2017 12:00 AM CDT) Narrative 02/11/2017 12:00 AM CDT Ordered by an unspecified provider. Historical Provider LAB PATHOLOGY ORDERABLES Final Result documented in this encounter Visit Diagnoses Not on filedocumented in this encounter Care Teams Park Keeper Relationship Specialty Start Date End Date Richard Sosa MD PCP - General 09/11/16 documented as of this encounter
--- OUTSIDE RECORDS SUMMARY | 2024-06-25 14:27 | XMS_ITS | Encounter Summary ---
Author Organization [facility] Address [address] [place] [address] Phone Care Team Providers Care Jack Tamp Operator Name Role Phone Richard Sosa MD Primary Care Provider [phone] Encounter Details Date Type Department Care Team (Late st Contact Info) Description 11/26/2018 9:45 AM CDT Lab [facility] Oncology [address] [place] [address] Clinical trial participant Social History Tobacco Use Types Packs/Day Years Used Date Smoking Tobacco: Never Smokeless Tobacco: Never Alcohol Use Standard Drinks/Week Comments Yes 0 (1 standard drink = 0.6 oz pur e alcohol) Comments Unknown Sex and Gender Information Value Date Recorded Sex Assigned at Not on file Legal Sex Female 4:26 PM MOUNTER SOUSAPHONES Gender Identity Female 03/21/2021 10:44 PM CDT Sexual Orientation Not on file documented as of this encounter Plan of Treatment Not on file documented as of this encounter Visit Diagnoses Diagnosis Clinical trial participant documented in this encounter Care Teams Jack Tamp Operator Relationship Specialty Start Date End Date Richard Sosa MD PCP - General 09/11/16 documented as of this encounter
--- OUTSIDE RECORDS SUMMARY | 2024-06-25 14:27 | XMS_ITS | Encounter Summary ---
Author Organization [facility] Address [address] [place] [address] Phone Care Team Providers Care Digital Advertising Analyst Name Role Phone Richard Sosa MD Primary Care Provider [phone] Encounter Details Date Type Department Care Team (Late st Contact Info) Description 06/03/2019 10:00 AM PRICING CONSULTANT Lab [facility] Oncology [address] [place] [address] Clinical trial participant Social History Tobacco Use Types Packs/Day Years Used Date Smoking Tobacco: Never Smokeless Tobacco: Never Alcohol Use Standard Drinks/Week Comments Yes 0 (1 standard drink = 0.6 oz pur e alcohol) Comments Unknown Sex and Gender Information Value Date Recorded Sex Assigned at Not on file Legal Sex Female 4:26 PM PRICING CONSULTANT Gender Identity Female 03/21/2021 10:44 PM CDT Sexual Orientation Not on file documented as of this encounter Plan of Treatment Not on file documented as of this encounter Visit Diagnoses Diagnosis Clinical trial participant documented in this encounter Care Teams Digital Advertising Analyst Relationship Specialty Start Date End Date Richard Sosa MD PCP - General 09/11/16 documented as of this encounter
--- OUTSIDE RECORDS SUMMARY | 2024-06-25 14:27 | XMS_ITS | Encounter Summary ---
Author Organization [facility] Address [address] [place] [address] Care Team Providers Care Personnel Interviewer Name Role Phone Richard Sosa MD Primary Care Provider [phone] Reason for Referral * Diagnostic Imaging (Routine) - Closed Specialty Diagnoses / Procedures Referred By Westley menezes Referred To Contact Diagnoses History of breast cancer Procedures Diagnostic Mammogram Bilateral W Argelia Batista MD Phone: tel: fax: [address] [address] Referral ID Status Reason Start Date Expiration Date Visits Re quested Visits Authorized [id number] Closed 12/16/2017 06/27/2019 1 1 Reason for Visit * Diagnostic Imaging (Routine) - Canceled Specialty Diagnoses / Procedures Referred By Westley menezes Referred To Contact Diagnoses History of breast cancer in female Procedures Diagnostic Mammogram Bilateral W Argelia Batista MD Phone: tel: fax: [facility] Referral ID Status Reason Start Date Expiration Date V isits Requested Visits Authorized [id number] Canceled 11/27/2017 05/26/2018 1 1 Encounter Details Date Type Department Care Team (Latest Contact Info) Description 12/18/2017 9:14 AM CDT - 12/18/2017 11:59 PM CDT Hospital Encounter [facility] [address] [place] [address] Argelia Hussein MD [address] [address] History of breast cancer Discharge Disposition: Discharge to home or self care Social History Tobacco Use Types Packs/Day Years Used Date Smoking Tobacco: Never Smokeless Tobacco: Never Alcohol Use Standard Drinks/Week Comments Yes 0 (1 standard drink = 0.6 oz pur e alcohol) Comments Unknown Sex and Gender Information Value Date Recorded Sex Assigned at Not on file Legal 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 Female 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 Gender Identity Female 03/21/2021 10:44 PM CDT Sexual Orientation Not on file documented as of this encounter Medications at Time of Discharge ALPRAZolam (XANAX) 0.5 mg tablet 0 11/07/2017 ALPRAZolam (XANAX) 2 mg tablet dextroamphetamin e-amphetamine (ADDERALL) 15 mg tablet dextroamphetamin e-amphetamine (ADDERALL) 20 mg tablet TK 1 T PO BID BEFORE BREAKFAST AND AT NOON 0 12/08/2017 esomeprazole (NexIUM Packet) 5 mg packet linaclotide (LINZESS) 72 mcg capsule prochlorperazine (COMPAZINE) 10 mg tablet take 1 tab every 6hrs on days 2 & 3 after chemo then every 6hrs as needed for nausea 09/24/2016 ranitidine (ZANTAC) 150 mg capsule Saccharomyces boulardii (PROBIOTIC, S.BOULARDII,) 250 mg capsule documented as of this encounter Discharge Disposition Disposition Code Departure Means Destination Discharge to home or self care documented in this encounter Plan of Treatment Not on file documented as of this encounter Procedures Procedure Name Priority Date/Time Associated Diagnosis Comments DIAGNOSTIC MAMMOGRAM BILATERAL W FELIX Schedule Routine, Read Routine (OP Routine) 12/18/2017 10:19 AM CDT History of breast cancer documented in this encounter Results * Diagnostic Mammogram Bilateral W Felix (12/18/2017 10:19 AM CDT) Anatomical Region Laterality Modality Breast Bilateral Mammography 12/18/2017 10:4 1 AM CDT Impressions 12/18/2017 10:41 AM CDT OVERALL FINAL ASSESSMENT: BI-RADS Category 2: Benign. Annual diagnostic mammography is recommended. Electronically signed by: Mirta Greene M.D. Narrative 12/18/2017 10:41 AM CDT EXAMINATION: BILATERAL DIGITAL DIAGNOSTIC MAMMOGRAM INCLUDING CAD AND BILATERAL DIGITAL BREAST TOMOSYNTHESIS HISTORY: A personal history of right breast malignancy status post breast conservation therapy in 2017. COMPARISON: 02/11/2017, 01/13/2017, 08/29/2016, 01/21/2013. TECHNIQUE: ??Full field digital mammographic views of BOTH breasts were performed, including computer aided detection (CAD) and BILATERAL digital breast tomosynthesis (DBT). BREAST PARENCHYMAL COMPOSITION: There are scattered areas of fibroglandular density. MAMMOGRAM FINDINGS: There are changes of interval right breast conservation therapy with evolving fat necrosis and associated dystrophic calcifications. There is no new suspicious mammographic finding in either breast. Bilateral subpectoral saline breast implants are present. ?? Procedure Note Mirta Greene MD - 12/18/2017 EXAMINATION: BILATERAL DIGITAL DIAGNOSTIC MAMMOGRAM INCLUDING CAD AND BILATERAL DIGITAL BREAST TOMOSYNTHESIS HISTORY: A personal history of right breast malignancy status post breast conservation therapy in 2017. COMPARISON: 02/11/2017, 01/13/2017, 08/29/2016, 01/21/2013. TECHNIQUE: Full field digital mammographic views of BOTH breasts were performed, including computer aided detection (CAD) and BILATERAL digital breast tomosynthesis (DBT). BREAST PARENCHYMAL COMPOSITION: There are scattered areas of fibroglandular density. MAMMOGRAM FINDINGS: There are changes of interval right breast conservation therapy with evolving fat necrosis and associated dystrophic calcifications. There is no new suspicious mammographic finding in either breast. Bilateral subpectoral saline breast implants are present. IMPRESSION: OVERALL FINAL ASSESSMENT: BI-RADS Category 2: Benign. Annual diagnostic mammography is recommended. Electronically signed by: Mirta Greene M.D. Argelia Hussein MD IMG MAMMO PROCEDURES Fi nal Result documented in this encounter Visit Diagnoses Diagnosis History of breast cancer Personal history of malignant neoplasm of breast documented in this encounter Care Teams Personnel Interviewer Relationship Specialty Start Date End Date Richard Sosa MD PCP - General 09/11/16 documented as of this encounter
--- OUTSIDE RECORDS SUMMARY | 2024-06-25 14:27 | XMS_ITS | Encounter Summary ---
Author Organization [facility] Address [address] [place] [address] Care Team Providers Care Endoscopic Technician Name Role Phone Richard Sosa MD Primary Care Provider [phone] Reason for Referral * Diagnostic Imaging (Routine) - Closed Specialty Diagnoses / Procedures Referred By Westley emnezes Referred To Contact Diagnoses History of breast cancer Procedures Diagnostic Mammogram Bilateral W Argelia Batista MD Phone: tel: fax: [address] [address] Referral ID Status Reason Start Date Expiration Date Visits Re quested Visits Authorized [id number] Closed 05/11/2018 11/20/2019 1 1 Reason for Visit * Diagnostic Imaging (Routine) - Closed Specialty Diagnoses / Procedures Referred By Westley menezes Referred To Contact Diagnoses History of breast cancer Procedures Diagnostic Mammogram Bilateral W Argelia Batista MD Phone: tel: fax: [address] [address] Referral ID Status Reason Start Date Expiration Date Visits Re quested Visits Authorized [id number] Closed 05/11/2018 11/20/2019 1 1 Encounter Details Date Type Department Care Team (Latest Contact Info) Description 01/07/2019 8:11 AM CDT - 01/07/2019 11:59 PM CDT Hospital Encounter [facility] [address] [place] [address] Argelia Hussein MD [address] [address] History of breast cancer Discharge Disposition: Discharge to home or self care Social History Tobacco Use Types Packs/Day Years Used Date Smoking Tobacco: Never Smokeless Tobacco: Never Alcohol Use Standard Drinks/Week Comments Yes 0 (1 standard drink = 0.6 oz pur e alcohol) Comments Unknown Sex and Gender Information Value Date Recorded Sex Assigned at Not on file Legal Sex Female 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 Electronically signed by: Anatoly Cabrera M.D. Argelia Hussein MD IMG MAMMO PROCEDURES Fi nal Result documented in this encounter Visit Diagnoses Diagnosis History of breast cancer Personal history of malignant neoplasm of breast documented in this encounter Care Teams Endoscopic Technician Relationship Specialty Start Date End Date Richard Sosa MD PCP - General 09/11/16 documented as of this encounter
--- OUTSIDE RECORDS SUMMARY | 2024-06-25 14:27 | XMS_ITS | Encounter Summary ---
Author Organization [facility] Address [address] [place] [address] Phone Care Team Providers Care Mechanic General Operational Test Name Role Phone Richard Sosa MD Primary Care Provider [phone] Encounter Details Date Type Department Care Team (Late st Contact Info) Description 05/30/2019 Orders Only [facility] Oncology [address] [place] [address] Litzy Gtz BS Clinical trial participant (Primary Dx) Social History Tobacco Use Types Packs/Day Years Used Date Smoking Tobacco: Never Smokeless Tobacco: Never Alcohol Use Standard Drinks/Week Comments Yes 0 (1 standard drink = 0.6 oz pur e alcohol) Comments Unknown Sex and Gender Information Value Date Recorded Sex Assigned at Not on file Legal Sex Female 4:26 PM CHEMISTRY MANAGER Gender Identity Female 03/21/2021 10:44 PM CDT Sexual Orientation Not on file documented as of this encounter Plan of Treatment Not on file documented as of this encounter Visit Diagnoses Diagnosis Clinical trial participant- Primary documented in this encounter Care Teams Mechanic General Operational Test Relationship Specialty Start Date End Date Richard Sosa MD PCP - General 09/11/16 documented as of this encounter
--- OUTSIDE RECORDS SUMMARY | 2024-06-25 14:27 | XMS_ITS | Encounter Summary ---
Author Organization [facility] Address [address] [place] [address] Phone Care Team Providers Care Shoe Dresser Name Role Phone Richard Sosa MD Primary Care Provider Encounter Details Date Type Department Care Team (Late st Contact Info) Description 03/30/2018 Orders Only [facility] Oncology [address] [place] [address] Litzy Gtz BS Clinical trial participant (Primary Dx) Social History Tobacco Use Types Packs/Day Years Used Date Smoking Tobacco: Never Smokeless Tobacco: Never Alcohol Use Standard Drinks/Week Comments Yes 0 (1 standard drink = 0.6 oz pur e alcohol) Comments Unknown Sex and Gender Information Value Date Recorded Sex Assigned at Not on file Legal Sex Female 4:26 PM 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
--- OUTSIDE RECORDS SUMMARY | 2024-06-25 14:27 | XMS_ITS | Encounter Summary ---
Author Organization [facility] Address [address] [place] [address] Phone Care Team Providers Care Jump Iron Machine Presser Name Role Phone Richard Sosa MD Primary Care Provider [phone] Reason for Visit * Oncology (Routine) - Closed Specialty Diagnoses / Procedures Referred By Contac t Referred To Contact Medical Oncology / Oncology Diagnoses Malignant neoplasm of upper-outer quadrant of right female breast Procedures RETURN Richard Sosa MD Phone: tel: fax: Nichole Gilman MD [address] [facility] [address] [place] [address] Phone: tel: fax: Referral ID Status Reason Start Date Expiration Date V isits Requested Visits Authorized [id number] Closed Specialty Services Required 04/02/2018 06/28/2018 99 [phone] Encounter Details Date Type Department Care Team (Late st Contact Info) Description 04/02/2018 11:40 AM CDT Office Visit [facility] Oncology [address] [place] [address] Nichole Gilman MD [address] [facility] [address] [place] [address] Malignant neoplasm of upper-outer quadrant of right breast in female, estrogen receptor negative (CMS/HCC) (Primary Dx) Social History Tobacco Use Types Packs/Day Years Used Date Smoking Tobacco: Never Smokeless Tobacco: Never Alcohol Use Standard Drinks/Week Comments Yes 0 (1 standard drink = 0.6 oz pur e alcohol) Comments Unknown Sex and Gender Information Value Date Recorded Sex Assigned at Not on file Legal Sex Female 4:26 PM 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 TILE 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 Gender Identity Female 03/21/2021 10:44 PM CDT Sexual Orientation Not on file documented as of this encounter Last Filed Vital Signs Vital Sign Reading Time Taken Comments Blood Pressure 136/83 04/02/2018 11:09 AM CDT Pulse 89 04/02/2018 11:09 AM CDT Temperature 36.7 ??C (98.1 ??F) 04/02/2018 1 1:09 AM CDT Respiratory Rate 16 04/02/2018 11:0 9 AM CDT Oxygen Saturation 100% 04/02/2018 11: 09 AM CDT Inhaled Oxygen Concentration - - Weight 52.9 kg (116 lb 11.2 oz) 018 11:09 AM CDT Height - - Body Mass Index 21.34 12/18/2017 8:40 AM CDT documented in this encounter Progress Notes * Nichole Gilman MD - 04/02/2018 11:40 AM CDT CHIEF COMPLAINT/REASON FOR VISIT: routine scheduled surveillance follow up for of triple negative breast cancer Oncology History DIAGNOSIS: Right breast stage IIA, clinical T2N1f, ER-negative, UT-negative, HER2-negative, grade 3invasive ductal carcinoma; [id number] ONCOLOGIC HISTORY: 1. Kirsten felt an abnormality in the left breast in July 2016. 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 2. Mammogram 08/29/2016 at [facility] showed right upper quadrant mass, 2 cm in size. Left breast was unremarkable. Axillary ultrasound demonstrated prominent lymph node. 3. 09/11/2016, she underwent biopsy of the right breast mass, showing grade 3, triple-negative invasive ductal carcinoma with a Ki-67 of 48%. 4. She saw Dr. Hussein in consultation, who biopsied her axilla, which was positive for carcinoma. 5. She saw me for consultation on 09/24/2016, and we discussed systemic therapy and ultimately opted for neoadjuvant chemotherapy on clinical study with carboplatin and docetaxel. 6. She received cycle 1 of carboplatin and docetaxel on 10/03/2016. Cycle 6 was 01/16/2017. 7. 02/11/2017: Partial mastectomy and sentinel lymph node biopsy with Dr. Hussein revealed 9 mm of residual disease with 1/4 nodes positive. Treatment affect was noted. [id number]. 8. Adjuvant chemotherapy with 4 cycles of Adriamycin and Cytoxan initiated on 03/13/2017, with cycle 4 completed on 04/24/2017. Last cycle 04/24/2017. 9. She completed adjuvant radiation therapy locally with Dr. Ragsdale, completing on 07/13/2017, for a total of 33 fractions. GENETIC TESTING: Tereso panel 09/23/2016, negative. MENOPAUSAL STATUS: Clinically postmenopausal (status post hysterectomy with 3-4 years of hot flashes since). CLINICAL TRIAL PARTICIPATION: A Co-Clinical trial in Triple-Negative Breast Cancer Patients with Genoproteomic Discovery. REFERRING PHYSICIAN: Dr. Sosa PRIMARY CARE PHYSICIAN: Dr. Richard Sosa MD INTERIM HISTORY: Kirsten Marshall is doing well. She reports no new medical problems or hospital stays since last visit. She denies any headaches, cough, SOB, chest pain, leg swelling, new aches or pains or chest wall problems. She did well with her breast surgery last month and is happy with the results. She had removal of an intact left mammary implant removal of a right ruptured mammary implant and placement of bilateral silicone implants as well as bilateral mastopexy. She has some minimal residual neuropathy which is not overly bothersome. PAST MEDICAL HISTORY: Past Medical History: Diagnosis Date ??? Attention deficit disorder ??? Breast cancer (CMS/HCC) ??? IBS (irritable bowel syndrome) ??? Melanoma (CMS/HCC) excised at the age of 38 or 39 approximately ALLERGIES: No Known Allergies MEDICATIONS: Current Outpatient Prescriptions: ??? ALPRAZolam (XANAX) 0.5 mg tablet ??? dextroamphetamine-amphetamine (ADDERALL) 20 mg tablet ??? esomeprazole (NexIUM Packet) 5 mg packet ??? linaclotide (LINZESS) 72 mcg capsule ??? ranitidine (ZANTAC) 150 mg capsule ??? ALPRAZolam (XANAX) 2 mg tablet ??? dextroamphetamine-amphetamine (ADDERALL) 15 mg tablet ??? prochlorperazine (COMPAZINE) 10 mg tablet ??? Saccharomyces boulardii (PROBIOTIC, S.BOULARDII,) 250 mg capsule REVIEW OF SYSTEMS: As detailed in interim history, all other systems negative. PHYSICAL EXAM: Vitals BP 136/83 Pulse 89 Temp 36.7 ??C (98.1 ??F) Resp 16 Wt 52.9 kg (116 lb 11.2 oz) SpO2 100% BMI 21.34 kg/m?? Body mass index is 21.34 kg/m??. HEENT: Normocephalic, nontraumatic, extraocular muscles in tact, sclera anicteric NECK: Supple, no masses LYMPHATICS: No cervical supraclavicular or axillary adenopathy palpated BREAST/CHEST WALL: Bilateral breasts have well healing scars with implants noted. No skin lesions. Mild radiation hyperpigmentation noted on the right. No abnormal masses or nodules palpated in either breast. CARDIOVASCULAR: Regular rate and rhythm, no murmurs rubs or gallops. PULMONARY: Lungs are clear to ausculation, no crackles, wheezes or rhonchi. GASTROINTESTINAL: Abdomen is soft, non tender, no masses appreciated. There is no hepatomegaly. Bowel sounds are present. MUSCULOSKELETAL: No lower extremity edema. SKIN: No rashes or lesions. PSYCHIATRIC: Mood and affect are normal. RADIOLOGY: Mammogram: 12/18/17 FINDINGS: There are changes of interval right breast conservation therapy with evolving fat necrosis and associated dystrophic calcifications. There is no new suspicious mammographic finding in either breast. Bilateral subpectoral saline breast implants are present. ? IMPRESSION: OVERALL FINAL ASSESSMENT: BI-RADS Category 2: Benign. ? Annual diagnostic mammography is recommended. ASSESSMENT AND PLANS: Kirsten Marshall is a 58 y.o. woman here for routine surveillance follow up for triple negative breast carcinoma. 1. Stage II invasive ductal carcinoma of the right upper quadrant, ER/UT negative, HER-2 negative, status post neoadjuvant chemotherapy with docetaxel and carboplatin on clinical study, with residualdisease, followed by adjuvant AC. She completed adjuvant radiation therapy, and she continues to chowchilla with no evidence of recurrence. Her breast imaging in November was unremarkable. We discussed signs and symptoms of recurrence and asked to her to call for any related concerns in between appointments. 2. Bone health. She had some osteopenia versus osteoporosis noted on the DEXA scan done by her PCP.She is following up with them for further management and evaluation. The patient was given instructions to follow up as above and encouraged to call in the interim for any new questions, concerns or problems. Nichole Gilman MD, MSCR Communications Department Chair Medical Oncology documented in this encounter Plan of Treatment Not on file documented as of this encounter Visit Diagnoses Diagnosis Malignant neoplasm of upper-outer quadrant of right breast in female, estrogen receptor negative (HCC)- Primary documented in this encounter Orders Appointment Requests Count Last Ordered Date Fi rst Ordered Date ONCBCN CLINIC APPOINTMENT REQUEST 1 019 documented in this encounter Care Teams Jump Iron Machine Presser Relationship Specialty Start Date End Date Richard Sosa MD PCP - General 09/11/16 documented as of this encounter
--- OUTSIDE RECORDS SUMMARY | 2024-06-25 14:27 | XMS_ITS | Encounter Summary ---
Author Organization [facility] Address [address] [place] [address] Phone Care Team Providers Care Enterprise Application Developer Name Role Phone Richard Sosa MD Primary Care Provider [phone] Encounter Details Date Type Department Care Team (Late st Contact Info) Description 01/05/2019 Telephone [facility] Surgery [address] [facility] 5th [place] [address] [place] [id number] Argelia Hussein MD [address] [facility] [address] [place] [phone] Social History Tobacco Use Types Packs/Day Years Used Date Smoking Tobacco: Never Smokeless Tobacco: Never Alcohol Use Standard Drinks/Week Comments Yes 0 (1 standard drink = 0.6 oz pur e alcohol) Comments Unknown Sex and Gender Information Value Date Recorded Sex Assigned at Not on file Legal Sex Female 4:26 PM VAT SKIMMER Gender Identity Female 03/21/2021 10:44 PM CDT Sexual Orientation Not on file documented as of this encounter Miscellaneous Notes * Telephone Encounter - Davy Rodriguez - 01/05/2019 12:05 PM CDT 3rd, call second 1 noted phone keeps going to straight to when called. Left another message documented in this encounter Plan of Treatment Not on file documented as of this encounter Visit Diagnoses Not on filedocumented in this encounter Care Teams Enterprise Application Developer Relationship Specialty Start Date End Date Richard Sosa MD PCP - General 09/11/16 documented as of this encounter
--- OUTSIDE RECORDS SUMMARY | 2024-06-25 14:27 | XMS_ITS | Encounter Summary ---
Author Organization [facility] Address [address] [place] [address] Phone Care Team Providers Care Department Coordinator Name Role Phone Richard Sosa MD Primary Care Provider [phone] Encounter Details Date Type Department Care Team (Late st Contact Info) Description 04/02/2018 11:15 AM CDT Lab [facility] Oncology [address] [place] [address] Clinical trial participant Social History Tobacco Use Types Packs/Day Years Used Date Smoking Tobacco: Never Smokeless Tobacco: Never Alcohol Use Standard Drinks/Week Comments Yes 0 (1 standard drink = 0.6 oz pur e alcohol) Comments Unknown Sex and Gender Information Value Date Recorded Sex Assigned at Not on file Legal Sex Female 4:26 PM BARREL BUILDER Gender Identity Female 03/21/2021 10:44 PM CDT Sexual Orientation Not on file documented as of this encounter Plan of Treatment Not on file documented as of this encounter Visit Diagnoses Diagnosis Clinical trial participant documented in this encounter Care Teams Department Coordinator Relationship Specialty Start Date End Date Richard Sosa MD PCP - General 09/11/16 documented as of this encounter
--- OUTSIDE RECORDS SUMMARY | 2024-06-25 14:27 | XMS_ITS | Encounter Summary ---
Author Organization [facility] Address [address] [place] [address] Phone Care Team Providers Care Small Package And Bundle Sorter Clerk Name Role Phone Richard Sosa MD Primary Care Provider [phone] Reason for Visit * Oncology (Routine) - Closed Specialty Diagnoses / Procedures Referred By Westley menezes Referred To Contact Medical Oncology / Oncology Diagnoses Malignant neoplasm of upper-outer quadrant of right breast in female, estrogen receptor negative (HCC) Procedures ONCBCN CLINIC APPOINTMENT REQUEST RETURN Nichole Gilman MD [address] [address] Phone: tel: fax: Nichole Gilman MD [address] [address] Phone: tel: fax: Referral ID Status Reason Start Date Expiration Date V isits Requested Visits Authorized [id number] Closed Specialty Services Required 08/18/2018 06/28/2019 99 [phone] Encounter Details Date Type Department Care Team (Late st Contact Info) Description 06/03/2019 10:40 AM EARLY CHILDHOOD TEACHER Office Visit [facility] Oncology [address] [place] [address] Nichole Gilman MD [address] [address] Malignant neoplasm of upper-outer quadrant of right breast in female, estrogen receptor negative (CMS/HCC) Social History Tobacco Use Types Packs/Day Years Used Date Smoking Tobacco: Never Smokeless Tobacco: Never Alcohol Use Standard Drinks/Week Comments Yes 0 (1 standard drink = 0.6 oz pur e alcohol) Comments Unknown Sex and Gender Information Value Date Recorded Sex Assigned at Not on file Legal Sex Female 4:26 PM EARLY CHILDHOOD TEACHER Gender Identity Female 03/21/2021 10:44 PM CDT Sexual Orientation Not on file documented as of this encounter Last Filed Vital Signs Vital Sign Reading Time Taken Comments Blood Pressure 143/84 06/03/2019 10:11 AM EARLY CHILDHOOD TEACHER Pulse 90 06/03/2019 10:11 AM EARLY CHILDHOOD TEACHER Temperature 36.6 ??C (97.9 ??F) 06/03/2019 1 0:11 AM EARLY CHILDHOOD TEACHER Respiratory Rate 12 06/03/2019 10:1 1 AM EARLY CHILDHOOD TEACHER Oxygen Saturation 96% 06/03/2019 10: 11 AM EARLY CHILDHOOD TEACHER Inhaled Oxygen Concentration - - Weight 54.7 kg (120 lb 11.2 oz) 019 10:11 AM EARLY CHILDHOOD TEACHER Height - - Body Mass Index 22.07 01/07/2019 7:52 AM CDT documented in this encounter Progress Notes * Nichole Gilman MD - 06/03/2019 10:40 AM CST CHIEF COMPLAINT/REASON FOR VISIT: routine scheduled surveillance follow up for of triple negative breast cancer Oncology History DIAGNOSIS: Right breast stage IIA, clinical T2N1f, ER-negative, OH-negative, HER2-negative, grade 3invasive ductal carcinoma; [id number] ONCOLOGIC HISTORY: 1. Kirsten felt an abnormality in the left breast in July 2016. 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 2. Mammogram 08/29/2016 at [facility] showed right upper quadrant mass, 2 cm [...] 1/4 nodes positive. Treatment affect was noted. [id number]. 8. Adjuvant chemotherapy with 4 cycles of Adriamycin and Cytoxan initiated on 03/13/2017, with cycle 4 completed on 04/24/2017. Last cycle 04/24/2017. 9. She completed adjuvant radiation therapy locally with Dr. Ragsdale, completing on 07/13/2017, for a total of 33 fractions. 10. She had a palpable abnormality in her right breast, seen on mammogram 05/27/18 (2 mm lesion upper outer quadrant right breast) biopsy 06/01/18 was benign, consistent with postsurgical change.. GENETIC TESTING: Bioscan panel 09/23/2016, negative. MENOPAUSAL STATUS: Clinically postmenopausal (status post hysterectomy with 3-4 years of hot flashes since). CLINICAL TRIAL PARTICIPATION: A Co-Clinical trial in Triple-Negative Breast Cancer Patients with Genoproteomic Discovery. REFERRING PHYSICIAN: Dr. Gilman PRIMARY CARE PHYSICIAN: Dr. Richard Sosa MD INTERIM HISTORY: Kirsten Marshall is doing well other than some stress at work. She has noticed some bilateral hip and low back pain. She does have some sciatic symptoms with pain radiating down bothlegs. She has not had this worked up yet because she thinks it is all stress related. She denies any other new medical problems or hospital stays since last visit. She denies any concerning headaches, cough, SOB, chest pain, leg swelling, new aches or pains or chest wall problems. PAST MEDICAL HISTORY: Past Medical History: Diagnosis Date ??? Attention deficit disorder ??? Breast cancer (CMS/HCC) ??? IBS (irritable bowel syndrome) ??? Melanoma (CMS/HCC) excised at the age of 38 or 39 approximately ALLERGIES: No Known Allergies MEDICATIONS: Current Outpatient Medications: ??? ALPRAZolam (XANAX) 0.5 mg tablet ??? dextroamphetamine-amphetamine (ADDERALL) 20 mg tablet ??? esomeprazole (NexIUM Packet) 5 mg packet ??? linaclotide (LINZESS) 72 mcg capsule ??? prochlorperazine (COMPAZINE) 10 mg tablet ??? ALPRAZolam (XANAX) 2 mg tablet ??? dextroamphetamine-amphetamine (ADDERALL) 15 mg tablet ??? dextroamphetamine-amphetamine (ADDERALL) 30 mg tablet ??? ranitidine (ZANTAC) 150 mg capsule ??? Saccharomyces boulardii (PROBIOTIC, S.BOULARDII,) 250 mg capsule ??? traMADol (ULTRAM) 50 mg tablet REVIEW OF SYSTEMS: As detailed in interim history, all other systems negative. PHYSICAL EXAM: Vitals BP 143/84 Pulse 90 Temp 36.6 ??C (97.9 ??F) Resp 12 Wt 54.7 kg (120 lb 11.2 oz) SpO2 96% BMI 22.07 kg/m?? Body mass index is 22.07 kg/m??. HEENT: Normocephalic, nontraumatic, extraocular muscles in tact, sclera anicteric NECK: Supple, no masses LYMPHATICS: No cervical or supraclavicular adenopathy BREAST/CHEST WALL: Bilateral breasts with implants present. No abnormal skin lesions. Mild radiation hyperpigmentation noted on the right. No abnormal masses palpated in either breast or axilla. Mildskin retraction on right at surgical scar. CARDIOVASCULAR: Regular rate and rhythm, no murmurs rubs or gallops. PULMONARY: Lungs are clear to ausculation, no crackles, wheezes or rhonchi. GASTROINTESTINAL: Abdomen is soft, non tender. There is no hepatomegaly. MUSCULOSKELETAL: No lower extremity edema. SKIN: No rashes or lesions. PSYCHIATRIC: Mood and affect are normal. RADIOLOGY: Mammogram: 01/07/19 OVERALL FINAL ASSESSMENT: BI-RADS Category 2: Benign. ?? Annual diagnostic mammography is recommended. ASSESSMENT AND PLANS: Kirsten Marshall is a 59 y.o. woman here for routine surveillance follow up for triple negative breast carcinoma. 1. Stage II invasive ductal carcinoma of the right upper quadrant, ER/OH negative, HER-2 negative, status post neoadjuvant chemotherapy with docetaxel and carboplatin on clinical study, with residualdisease, followed by adjuvant AC. She is doing well with no evidence of recurrence. Her breast imaging in December was unremarkable. We discussed signs and symptoms of recurrence and asked to her to callfor any related concerns in between appointments otherwise RTC 6 months (at her request, offered 3-4 month fu). 2. Bone health. Per PCP. 3. Health maintenance. Encouraged annual derm f/u given h/o melanoma. 4. New hip and back pain. Will discuss with PCP. Possible OA vs nerve impingement. Asked her to call me if it gets worse. The patient was given instructions to follow up as above and encouraged to call in the interim for any new questions, concerns or problems. Nichole Gilman MD, MSCR Aerodynamic Consultant Medical Oncology Y CHILDHOOD TEACHER documented in this encounter Plan of Treatment Not on file documented as of this encounter Visit Diagnoses Diagnosis Malignant neoplasm of upper-outer quadrant of right breast in female, estrogen receptor negative (HCC) documented in this encounter Historical Medications * This list may reflect changes made after this encounter. traMADol (ULTRAM) 50 mg tablet TK 1 T PO Q 6 H PRN 0 03/18/2019 added in this encounter Orders Appointment Requests Count Last Ordered Date Fi rst Ordered Date ONCBCN CLINIC APPOINTMENT REQUEST 1 019 documented in this encounter Care Teams Small Package And Bundle Sorter Clerk Relationship Specialty Start Date End Date Richard Sosa MD PCP - General 09/11/16 documented as of this encounter
--- OUTSIDE RECORDS SUMMARY | 2024-06-25 14:27 | XMS_ITS | Encounter Summary ---
Author Organization [facility] Address [address] [place] [address] Phone Care Team Providers Care Hydroponics Grower Name Role Phone Richard Sosa MD Primary Care Provider [phone] Encounter Details Date Type Department Care Team (Latest Contact Info) Description 05/27/2018 Orders Only [facility] Scanning, Provider Social History Tobacco Use Types Packs/Day Years Used Date Smoking Tobacco: Never Smokeless Tobacco: Never Alcohol Use Standard Drinks/Week Comments Yes 0 (1 standard drink = 0.6 oz pur e alcohol) Comments Unknown Sex and Gender Information Value Date Recorded Sex Assigned at Not on file Legal Sex Female 4:26 PM MANAGER UTILITY Gender Identity Female 03/21/2021 10:44 PM CDT Sexual Orientation Not on file documented as of this encounter Plan of Treatment Not on file documented as of this encounter Procedures Procedure Name Priority Date/Time Associated Diagnosis Comments SCAN - RADIOLOGY/IMAGING 05/27/2018 SCAN - LABS 05/27/2018 documented in this encounter Results * SCAN - LABS (05/27/2018) us Provider Scanning Final Result * SCAN - RADIOLOGY/IMAGING (05/27/2018) Anatomical Region Laterality Modality Other us Provider Scanning Final Result documented in this encounter Visit Diagnoses Not on filedocumented in this encounter Care Teams Hydroponics Grower Relationship Specialty Start Date End Date Richard Sosa MD PCP - General 09/11/16 documented as of this encounter
--- OUTSIDE RECORDS SUMMARY | 2024-06-25 14:27 | XMS_ITS | Encounter Summary ---
Author Organization [facility] Address [address] [place] [address] Phone Care Team Providers Care Railroad Worker Name Role Phone Richard Sosa MD Primary Care Provider [phone] Encounter Details Date Type Department Care Team (Late st Contact Info) Description 01/04/2019 Telephone [facility] Surgery [address] [facility] 5th [place] [address] [place] [address] Argelia Hussein MD [address] [facility] [address] [place] [phone] Social History Tobacco Use Types Packs/Day Years Used Date Smoking Tobacco: Never Smokeless Tobacco: Never Alcohol Use Standard Drinks/Week Comments Yes 0 (1 standard drink = 0.6 oz pur e alcohol) Comments Unknown Sex and Gender Information Value Date Recorded Sex Assigned at Not on file Legal Sex Female 4:26 PM WOOD TILE INSTALLER Gender Identity Female 03/21/2021 10:44 PM CDT Sexual Orientation Not on file documented as of this encounter Miscellaneous Notes * Telephone Encounter - Davy Rodriguez - 01/04/2019 8:31 AM CDT This is the second message left for the pt. To come earlier for her appointment documented in this encounter Plan of Treatment Not on file documented as of this encounter Visit Diagnoses Not on filedocumented in this encounter Care Teams Railroad Worker Relationship Specialty Start Date End Date Richard Sosa MD PCP - General 09/11/16 documented as of this encounter
--- OUTSIDE RECORDS SUMMARY | 2024-06-25 14:27 | XMS_ITS | Encounter Summary ---
Author Organization [facility] Address [address] [place] [address] Phone Care Team Providers Care Die Reamer Name Role Phone Richard Sosa MD Primary Care Provider [phone] Reason for Visit * Oncology (Routine) - Closed Specialty Diagnoses / Procedures Referred By Westley menezes Referred To Contact Medical Oncology / Oncology Diagnoses Malignant neoplasm of upper-outer quadrant of right breast in female, estrogen receptor negative (HCC) Procedures ONCBCN CLINIC APPOINTMENT REQUEST RETURN Nichole Gilman MD [address] [address] Phone: tel: fax: Nichole Gilman MD [address] [facility] [address] [place] [address] Phone: tel: fax: Referral ID Status Reason Start Date Expiration Date V isits Requested Visits Authorized [id number] Closed Specialty Services Required 08/18/2018 06/28/2019 99 99 Encounter Details Date Type Department Care Team (Late st Contact Info) Description 11/26/2018 10:20 AM CDT Office Visit [facility] [address] [place] [phone] Nichole Gilman MD [address] [address] Malignant neoplasm of upper-outer quadrant of right breast in female, estrogen receptor negative ([facility]/HCC) Social History Tobacco Use Types Packs/Day Years Used Date Smoking Tobacco: Never Smokeless Tobacco: Never Alcohol Use Standard Drinks/Week Comments Yes 0 (1 standard drink = 0.6 oz pur e alcohol) Comments Unknown Sex and Gender Information Value Date Recorded Sex Assigned at Not on file Legal Sex Female 4:26 PM CHIEF STEWARD/STEWARDESS Gender Identity Female 03/21/2021 10:44 PM CDT Sexual Orientation Not on file documented as of this encounter Last Filed Vital Signs Vital Sign Reading Time Taken Comments Blood Pressure 136/84 11/26/2018 10:19 AM CDT Pulse 73 11/26/2018 10:19 AM CDT Temperature 36.7 ??C (98.1 ??F) 11/26/2018 10:19 AM C DT Respiratory Rate 12 11/26/2018 10:19 AM CDT Oxygen Saturation 99% 11/26/2018 10:19 AM CDT Inhaled Oxygen Concentration - - Weight 55.6 kg (122 lb 8 oz) 11/26/2018 10:19 AM CDT Height - - Body Mass Index 22.41 12/18/2017 8:40 AM CDT documented in this encounter Progress Notes * Nichole Gimlan MD - 11/26/2018 10:20 AM CDT CHIEF COMPLAINT/REASON FOR VISIT: routine scheduled surveillance follow up for of triple negative breast cancer Oncology History DIAGNOSIS: Right breast stage IIA, clinical T2N1f, ER-negative, IA-negative, HER2-negative, grade 3invasive ductal carcinoma; [id number] ONCOLOGIC HISTORY: 1. Kirsten felt an abnormality in the left breast in July 2016. 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 2. Mammogram 08/29/2016 at [facility] showed right upper quadrant mass, 2 [...] 1/4 nodes positive. Treatment affect was noted. [id number]. 8. Adjuvant chemotherapy with 4 cycles of [...] biopsy 06/01/18 was benign, consistent with postsurgical change, her implant on the right has become encapsulated, so she is pending further revision. GENETIC TESTING: [employer] panel 09/23/2016, negative. MENOPAUSAL STATUS: Clinically postmenopausal (status post hysterectomy with 3-4 years of hot flashes since). CLINICAL TRIAL PARTICIPATION: A Co-Clinical trial in Triple-Negative Breast Cancer Patients with Genoproteomic Discovery. REFERRING PHYSICIAN: Dr. Gilman PRIMARY CARE PHYSICIAN: Dr. Richard Sosa MD INTERIM HISTORY: Kirtsen Marshall is doing well. Since I last saw her she had further revision on her reconstructed breast. She may need some additional fat grafting otherwise she should be done. Sheotherwise denies new medical problems or hospital stays since last visit. She is dealing with allergies. She denies any headaches, cough, SOB, chest pain, leg swelling, new aches or pains or chest wall problems. She is going to [place] tomorrow for vacation. PAST MEDICAL HISTORY: Past Medical History: Diagnosis Date ??? Attention deficit disorder ??? Breast cancer (CMS/HCC) ??? IBS (irritable bowel syndrome) ??? Melanoma (CMS/HCC) excised at the age of 38 or 39 approximately ALLERGIES: No Known Allergies MEDICATIONS: Current Outpatient Medications: ??? ALPRAZolam (XANAX) 0.5 mg tablet ??? dextroamphetamine-amphetamine (ADDERALL) 30 mg tablet ??? esomeprazole (NexIUM Packet) 5 mg packet ??? linaclotide (LINZESS) 72 mcg capsule ??? prochlorperazine (COMPAZINE) 10 mg tablet ??? ranitidine (ZANTAC) 150 mg capsule ??? ALPRAZolam (XANAX) 2 mg tablet ??? dextroamphetamine-amphetamine (ADDERALL) 15 mg tablet ??? dextroamphetamine-amphetamine (ADDERALL) 20 mg tablet ??? Saccharomyces boulardii (PROBIOTIC, S.BOULARDII,) 250 mg capsule REVIEW OF SYSTEMS: As detailed in interim history, all other systems negative. PHYSICAL EXAM: Vitals BP 136/84 Pulse 73 Temp 36.7 ??C (98.1 ??F) Resp 12 Wt 55.6 kg (122 lb 8 oz) SpO2 99% BMI 22.41 kg/m?? Body mass index is 22.41 kg/m??. HEENT: Normocephalic, nontraumatic, extraocular muscles in tact, sclera anicteric NECK: Supple, no masses LYMPHATICS: No cervical or supraclavicular adenopathy palpated BREAST/CHEST WALL: Bilateral breasts with implants present. No abnormal skin lesions. Mild radiation hyperpigmentation noted on the right. No abnormal masses or nodules palpated in either breast or axilla. Mild skin retraction on right at surgical scar. CARDIOVASCULAR: Regular rate and rhythm, no murmurs rubs or gallops. PULMONARY: Lungs are clear to ausculation, no crackles, wheezes or rhonchi. GASTROINTESTINAL: Abdomen is soft, non tender, no masses appreciated. There is no hepatomegaly. MUSCULOSKELETAL: No lower [...] ductal carcinoma of the right upper quadrant, ER/IA negative, HER-2 negative, status post neoadjuvant chemotherapy with docetaxel and carboplatin on clinical study, with residualdisease, followed by adjuvant AC. She continues to do well with no evidence of recurrence. Her breast imaging is scheduled in December. We discussed signs and symptoms of recurrence and asked to her to call for any related concerns in between appointments. 2. Bone health. She had some osteopenia versus osteoporosis noted on the DEXA scan done by her PCP and is following up with them. 3. Health maintenance. Encouraged use of sunscreen on vacation and annual derm f/u given h/o melanoma. The patient was given instructions to follow up as above and encouraged to call in the interim for any new questions, concerns or problems. Nichole Gilman MD, MSCR Business Machine Mechanic Medical Oncology documented in this encounter Plan of Treatment Not on file documented as of this encounter Visit Diagnoses Diagnosis Malignant neoplasm of upper-outer quadrant of right breast in female, estrogen receptor negative (HCC) documented in this encounter Historical Medications * This list may reflect changes made after this encounter. dextroamphetamine -amphetamine (ADDERALL) 30 mg tablet TAKE 1 TABLET BY MOUTH IN THE MORNING AND 1 2 (ONE HALF) AT NOON 0 11/23/2018 added in this encounter Orders Appointment Requests Count Last Ordered Date Fi rst Ordered Date ONCBCN CLINIC APPOINTMENT REQUEST 2 019 11/26/2018 documented in this encounter Care Teams Die Reamer Relationship Specialty Start Date End Date Richard Sosa MD PCP - General 09/11/16 documented as of this encounter
--- OUTSIDE RECORDS SUMMARY | 2024-06-25 14:27 | XMS_ITS | Encounter Summary ---
Author Organization [facility] Address [address] [place] [address] Phone Care Team Providers Care Stacker And Sorter Operator Name Role Phone Richard Sosa MD Primary Care Provider [phone] Encounter Details Date Type Department Care Team (Late st Contact Info) Description 08/06/2018 Orders Only [facility] [address] [place] [address] Litzy Gtz BS Clinical trial participant (Primary Dx) Social History Tobacco Use Types Packs/Day Years Used Date Smoking Tobacco: Never Smokeless Tobacco: Never Alcohol Use Standard Drinks/Week Comments Yes 0 (1 standard drink = 0.6 oz pur e alcohol) Comments Unknown Sex and Gender Information Value Date Recorded Sex Assigned at Not on file Legal Sex Female 4:26 PM CARDIO TECH Gender Identity Female 03/21/2021 10:44 PM CDT Sexual Orientation Not on file documented as of this encounter Plan of Treatment Not on file documented as of this encounter Visit Diagnoses Diagnosis Clinical trial participant- Primary documented in this encounter Orders Lab Orders Without Results Count Last Ordered D ate First Ordered Date MISCELLANEOUS LAB TEST 1 08/06/2018 documented in this encounter Care Teams Stacker And Sorter Operator Relationship Specialty Start Date End Date Richard Sosa MD PCP - General 09/11/16 documented as of this encounter
--- OUTSIDE RECORDS SUMMARY | 2024-06-25 14:27 | XMS_ITS | Encounter Summary ---
Author Organization [facility] Address [address] [place] [address] Phone Care Team Providers Care Pharmaceutical Compounding Supervisor Name Role Phone Richard Sosa MD Primary Care Provider [phone] Encounter Details Date Type Department Care Team (Latest Contact Info) Description 05/28/2018 Orders Only [facility] Scanning, Provider Social History Tobacco Use Types Packs/Day Years Used Date Smoking Tobacco: Never Smokeless Tobacco: Never Alcohol Use Standard Drinks/Week Comments Yes 0 (1 standard drink = 0.6 oz pur e alcohol) Comments Unknown Sex and Gender Information Value Date Recorded Sex Assigned at Not on file Legal Sex Female 4:26 PM CENTER ADMINISTRATOR Gender Identity Female 03/21/2021 10:44 PM CDT Sexual Orientation Not on file documented as of this encounter Plan of Treatment Not on file documented as of this encounter Procedures Procedure Name Priority Date/Time Associated Diagnosis Comments SCAN - PATHOLOGY 05/28/2018 documented in this encounter Results * SCAN - PATHOLOGY (05/28/2018) us Provider Scanning Final Result documented in this encounter Visit Diagnoses Not on filedocumented in this encounter Care Teams Pharmaceutical Compounding Supervisor Relationship Specialty Start Date End Date Richard Sosa MD PCP - General 09/11/16 documented as of this encounter
--- OUTSIDE RECORDS SUMMARY | 2024-06-25 14:27 | XMS_ITS | Encounter Summary ---
Author Organization [facility] Address [address] [place] [address] Phone Care Team Providers Care Hand Meat Salter Name Role Phone Richard Sosa MD Primary Care Provider [phone] Reason for Referral * Diagnostic Imaging (Routine) - Closed Specialty Diagnoses / Procedures Referred By Westley menezes Referred To Contact Diagnoses History of breast cancer Procedures Diagnostic Mammogram Bilateral W Argelia Batista MD Phone: tel: fax: [address] [address] Referral ID Status Reason Start Date Expiration Date Visits Re quested Visits Authorized [id number] Closed 12/16/2017 06/27/2019 1 1 Reason for Visit * Reason Comments Follow-up * Consultation (Routine) - Closed Specialty Diagnoses / Procedures Referred By Westley menezes Referred To Contact Surgical Oncology Diagnoses Appt Comment: JAM DX PER PURPLE Procedures RETURN [facility] [address] [facility] [address] [place] [address] [place] [address] Phone: tel: fax: Argelia Hussein MD [address] [address] Phone: tel: fax: Referral ID Status Reason Start Date Expiration Date Visits Re quested Visits Authorized [id number] Closed 12/18/2017 06/29/2019 1 1 Encounter Details Date Type Department Care Team (Late st Contact Info) Description 12/18/2017 9:00 AM CDT Office Visit [facility] [address] [facility] [address] [place] [address] [place] [address] Argelia Hussein MD [address] [address] History of breast cancer (Primary Dx) Social History Tobacco Use Types Packs/Day Years Used Date Smoking Tobacco: Never Smokeless Tobacco: Never Alcohol Use Standard Drinks/Week Comments Yes 0 (1 standard drink = 0.6 oz pur e alcohol) Comments Unknown Sex and Gender Information Value Date Recorded Sex Assigned at Not on file Legal Sex Female 4:26 PM DEVOPS SOLUTIONS ARCHITECT Gender Identity Female 03/21/2021 10:44 PM CDT Sexual Orientation Not on file documented as of this encounter Last Filed Vital Signs Vital Sign Reading Time Taken Comments Blood Pressure - - Pulse - - Temperature - - Respiratory Rate - - Oxygen Saturation - - Inhaled Oxygen Concentration - - Weight 52.6 kg (116 lb) 12/18/2017 8:40 AM CDT Height 157.5 cm (5' 2 ) 12/18/2017 8:40 AM CDT Body Mass Index 21.22 12/18/2017 8:40 AM CDT documented in this encounter Progress Notes * Argelia Hussein MD - 12/18/2017 9:00 AM CDT Argelia Hussein M.D., [facility] ?? Department of Surgery [address] [place] [address] [address] [place] [address] ? 12/18/17 CHIEF COMPLAINT: Follow-up for right breast cancer. HISTORY OF PRESENT ILLNESS: Ms. Marshall is a 57 y.o.-year-old woman who is now six months status-postneoadjuvant chemotherapy followed by a right partial mastectomy and sentinel lymph node biopsy for a pathologic T1N1 invasive ductal cancer. Following her surgical therapy, she did undergo additionaladjuvant chemotherapy. Following her surgical therapy, she did [...] therapies. She denies bilateral nipple discharge. She has no other systemic complaints and otherwise feels well today. Please note that her past medical history, surgical history, medications, allergies, social history, and family history were all reviewed with her again today. Past Medical History: Diagnosis Date ??? Attention deficit disorder ADHD ??? HX OTHER MEDICAL IBS Past Surgical History: Procedure Laterality Date ??? HYSTERECTOMY Hysterectomy Social History Social History ??? Marital status: Spouse name: N/A ??? Number of children: N/A ??? Years of education: N/A Social History Main Topics ??? Smoking status: Never Smoker ??? Smokeless tobacco: Not on file ??? Alcohol use Yes ??? Drug use: Unknown ??? Sexual activity: Not on file Other Topics Concern ??? 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 Three kids ranging fr 14-33 yo (as of 20 Family History Problem Relation Age of Onset ??? Other Father First PA in his 40's, of PA; Cause of : First PA in his 40's, of PA ??? Other Mother A&W; ??? Diabetes type II Sister Diabetes Type II; ??? Ovarian cancer Mother Ovarian cancer - (Added by [employer] Conv) ??? Melanoma Mother Melanoma - (Added by [employer] Conv) ??? Melanoma Father Melanoma - (Added by [employer] Conv) The patient underwent gene panel testing, which was negative for a mutation. Prior to Admission medications Not on File Allergies not on file ROS: Pertinent items are noted in HPI. [...] EXAMINATION: Bilateral breast examination reveals ptotic breasts bilaterally. The left breast is without any dominant [...] II, benign. IMPRESSION/RECOMMENDATION: Ms. Marshall is a 57 y.o.-year-old woman who is now six months status-post neoadjuvant chemotherapy followed by a right partial mastectomy and sentinel lymph node biopsy for apathologic T1N1 invasive ductal cancer. Following her surgical therapy, she did undergo additional adjuvant chemotherapy. Following her surgical therapy, she did undergo adjuvant radiation therapy. She was not a candidate for endocrine therapy. I reassured her that based on her clinical examinationand the imaging studies today that there is no evidence of any recurrent disease or new abnormalities. I would like to see her back in one year at which time we will repeat her bilateral diagnostic ma mmograms. In the interim, I encouraged her to [...] malignant neoplasm of breast History of breast cancer- Primary Personal history of malignant neoplasm of breast documented in this encounter Historical Medications * This list may reflect changes made after this encounter. ranitidine (ZANTAC) 150 mg capsule ALPRAZolam (XANAX) 2 mg tablet prochlorperazine (COMPAZINE) 10 mg tablet take 1 tab every 6hrs on days 2 & 3 after chemo then every 6hrs as needed for nausea 09/24/2016 Saccharomyces boulardii (PROBIOTIC, S.BOULARDII,) 250 mg capsule esomeprazole (NexIUM Packet) 5 mg packet linaclotide (LINZESS) 72 mcg capsule dextroamphetamin e-amphetamine (ADDERALL) 20 mg tablet TK 1 T PO BID BEFORE BREAKFAST AND AT NOON 0 12/08/2017 ALPRAZolam (XANAX) 0.5 mg tablet 0 11/07/2017 dextroamphetamin e-amphetamine (ADDERALL) 15 mg tablet added in this encounter Care Teams Hand Meat Salter Relationship Specialty Start Date End Date Richard Soas MD PCP - General 09/11/16 documented as of this encounter
--- OUTSIDE RECORDS SUMMARY | 2024-06-25 14:27 | XMS_ITS | Encounter Summary ---
Author Organization [facility] Address [address] [place] [address] Phone Care Team Providers Care Windows Mobile Developer Name Role Phone Richard Sosa MD Primary Care Provider [phone] Reason for Visit * Oncology (Routine) - Closed Specialty Diagnoses / Procedures Referred By Westley menezes Referred To Contact Medical Oncology / Oncology Diagnoses Malignant neoplasm of upper-outer quadrant of right breast in female, estrogen receptor negative (HCC) Procedures ONCBCN CLINIC APPOINTMENT REQUEST RETURN Nichole Gilman MD [address] [address] Phone: tel: fax: Nichole Gilman MD [address] [address] Phone: tel: fax: Referral ID Status Reason Start Date Expiration Date V isits Requested Visits Authorized [id number] Closed Specialty Services Required 08/18/2018 06/28/2019 99 99 Encounter Details Date Type Department Care Team (Late st Contact Info) Description 08/18/2018 11:20 AM ORCHARD SPRAYER Office Visit [facility] [address] [place] [phone] Nichole Gilman MD [address] [address] Malignant neoplasm of upper-outer quadrant [...] on file Legal Sex Female 4:26 PM ORCHARD SPRAYER Gender Identity Female 03/21/2021 10:44 PM CDT Sexual Orientation Not on file documented as of this encounter Last Filed Vital Signs Vital Sign Reading Time Taken Comments Blood Pressure 134/76 08/18/2018 10:56 AM ORCHARD SPRAYER Pulse 90 08/18/2018 10:56 AM ORCHARD SPRAYER Temperature 36.5 ??C (97.7 ??F) 08/18/2018 1 0:56 AM ORCHARD SPRAYER Respiratory Rate 18 08/18/2018 10:5 6 AM ORCHARD SPRAYER Oxygen Saturation 100% 08/18/2018 10: 56 AM ORCHARD SPRAYER Inhaled Oxygen Concentration - - Weight 53.4 kg (117 lb 11.2 oz) 019 10:56 AM ORCHARD SPRAYER Height - - Body Mass Index 21.53 12/18/2017 8:40 AM CDT documented in this encounter Progress Notes * Nichole Gilman MD - 08/18/2018 11:20 AM CST CHIEF COMPLAINT/REASON FOR VISIT: routine scheduled surveillance follow up for of triple negative breast cancer Oncology History DIAGNOSIS: Right breast stage IIA, clinical T2N1f, ER-negative, MI-negative, HER2-negative, grade 3invasive ductal carcinoma; [id number] ONCOLOGIC HISTORY: 1. Kirsten felt an abnormality in the left breast in July 2016. 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 2. Mammogram 08/29/2016 at [facility] showed right upper quadrant mass, 2 [...] 1/4 nodes positive. Treatment affect was noted. [id number]. 8. Adjuvant chemotherapy with 4 cycles of [...] she is pending further revision. GENETIC TESTING: [employer] panel 09/23/2016, negative. MENOPAUSAL STATUS: Clinically postmenopausal (status post hysterectomy with 3-4 years of hot flashes since). CLINICAL TRIAL PARTICIPATION: A Co-Clinical trial in Triple-Negative Breast Cancer Patients with Genoproteomic Discovery. REFERRING PHYSICIAN: Dr. Gilman PRIMARY CARE PHYSICIAN: Dr. Richard Sosa MD INTERIM HISTORY: Kirsten Marshall is doing well overall. Since I last saw her she had a palpable abnormality in her reconstructed breast, biopsy was benign, she had a smaller implant placed, but thatbecame encapsulated, so she is pending further revision. She otherwise denies new medical problems or hospital stays since last visit. She denies any headaches, cough, SOB, chest pain, leg swelling, new aches or pains or chest wall problems. 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 PAST MEDICAL HISTORY: Past Medical History: Diagnosis Date ??? Attention deficit disorder ??? Breast cancer (CMS/HCC) ??? IBS (irritable bowel syndrome) ??? Melanoma (CMS/HCC) excised at the age of 38 or 39 approximately ALLERGIES: No Known Allergies MEDICATIONS: Current Outpatient Prescriptions: ??? ALPRAZolam (XANAX) 0.5 mg tablet ??? ALPRAZolam (XANAX) 2 mg [...] other systems negative. PHYSICAL EXAM: Vitals BP 134/76 Pulse 90 Temp 36.5 ??C (97.7 ??F) Resp 18 Wt 53.4 kg (117 lb 11.2 oz) SpO2 100% BMI 21.53 kg/m?? Body mass index is 21.53 kg/m??. HEENT: Normocephalic, nontraumatic, extraocular muscles in tact, sclera anicteric NECK: Supple, no masses LYMPHATICS: No cervical or supraclavicular adenopathy palpated BREAST/CHEST WALL: Bilateral breasts with implants noted. No abnormal skin lesions. Mild radiation hyperpigmentation noted on the right. No abnormal masses or nodules palpated in either breast or axilla. CARDIOVASCULAR: Regular rate and rhythm, no murmurs [...] ductal carcinoma of the right upper quadrant, ER/MI negative, HER-2 negative, status post neoadjuvant chemotherapy with docetaxel and carboplatin on clinical study, with residualdisease, followed by adjuvant AC. She completed adjuvant radiation therapy, and she continues to [place] with no evidence of recurrence although is following with plastic surgery for encapsulated right implant. Her breast imaging in November was unremarkable. We discussed signs and symptoms of recurrence and asked to her to call for any related concerns in between appointments. 2. Bone health. She had some osteopenia versus osteoporosis noted on the DEXA scan done by her PCP and is following up with them for management. The patient was given instructions to follow up as above and encouraged to call in the interim for any new questions, concerns or problems. Nichole Gilman MD, MSCR Data Systems Manager Medical Oncology ARD SPRAYER ARD SPRAYER documented in this encounter Plan of Treatment Not on file documented as of this encounter Visit Diagnoses Diagnosis Malignant neoplasm of upper-outer quadrant of right breast in female, estrogen receptor negative (HCC) documented in this encounter Orders Appointment Requests Count Last Ordered Date Fi rst Ordered Date ONCBCN CLINIC APPOINTMENT REQUEST 2 019 08/18/2018 documented in this encounter Care Teams Windows Mobile Developer Relationship Specialty Start Date End Date Richard Sosa MD PCP - General 09/11/16 documented as of this encounter
--- OUTSIDE RECORDS SUMMARY | 2024-06-25 14:27 | XMS_ITS | Encounter Summary ---
Author Organization [facility] Healthcare Address [address] [place] [address] Care Team Providers Care Machine Operator Name Role Phone Richard Sosa MD Primary Care Provider [phone] Encounter Details Date Type Department Care Team (Latest Contact Info) Description 09/24/2016 2:57 PM CDT - 07/15/2017 11:59 PM COUNTER CUTTER Hospital Encounter [facility] INTERIM [phone] Jeanette Gilman MD [address] [facility] [address] [place] [address] Discharge Disposition: Discharge to home or self care Social History Tobacco Use Types Packs/Day Years Used Date Smoking Tobacco: Never Alcohol Use Standard Drinks/Week Comments Yes 0 (1 standard drink = 0.6 oz pur e alcohol) Comments Unknown Sex and Gender Information Value Date Recorded Sex Assigned at Not on file Legal Sex Female 4:26 PM COUNTER CUTTER Gender Identity Female 03/21/2021 10:44 PM [...] Procedure Name Priority Date/Time Associated Diagnosis Comments DIFFERENTIAL AUTO Routine Gen Lab 07/15/2017 2:3 5 PM COUNTER CUTTER CBC WITH AUTO DIFFERENTIAL Routine Gen Lab 07/15/2017 2:35 PM COUNTER CUTTER COMPREHENSIVE METABOLIC PANEL Routine Gen Lab 07/15/2017 2:35 PM COUNTER CUTTER DIFFERENTIAL AUTO Routine Gen Lab 04/24/2017 8:1 5 AM CDT CBC WITH AUTO DIFFERENTIAL Routine Gen Lab 04/24/2017 8:15 AM CDT PROTIME-INR Routine Gen Lab 04/24/2017 8:15 AM CDT COMPREHENSIVE METABOLIC PANEL STAT 04/24/2017 8:15 AM CDT DIFFERENTIAL AUTO Routine Gen Lab 04/10/2017 8:0 8 AM CDT CBC WITH AUTO DIFFERENTIAL Routine Gen Lab 04/10/2017 8:08 AM CDT COMPREHENSIVE METABOLIC PANEL STAT 04/10/2017 8:08 AM CDT DIFFERENTIAL AUTO Routine Gen Lab 03/27/2017 8:1 0 AM CDT CBC WITH AUTO DIFFERENTIAL Routine Gen Lab 03/27/2017 8:10 AM CDT COMPREHENSIVE METABOLIC PANEL STAT 03/27/2017 8:10 AM CDT DIFFERENTIAL AUTO Routine Gen Lab 03/13/2017 8:1 5 AM CDT CBC WITH AUTO DIFFERENTIAL Routine Gen Lab 03/13/2017 8:15 AM CDT COMPREHENSIVE METABOLIC PANEL STAT 03/13/2017 8:15 AM CDT DIFFERENTIAL AUTO Routine Gen Lab 01/16/2017 9:1 5 AM CDT CBC WITH AUTO DIFFERENTIAL Routine Gen Lab 01/16/2017 9:15 AM CDT MAGNESIUM Routine Gen Lab 01/16/2017 9:15 AM CDT COMPREHENSIVE METABOLIC PANEL STAT 01/16/2017 9:15 AM CDT DIFFERENTIAL AUTO Routine Gen Lab 12/26/2016 8:0 4 AM CDT CBC WITH AUTO DIFFERENTIAL Routine Gen Lab 12/26/2016 8:04 AM CDT MAGNESIUM STAT 12/26/2016 8:04 AM CDT COMPREHENSIVE METABOLIC PANEL STAT 12/26/2016 8:04 AM CDT DIFFERENTIAL AUTO Routine Gen Lab 12/05/2016 7:4 2 AM CDT CBC WITH AUTO DIFFERENTIAL Routine Gen Lab 12/05/2016 7:42 AM CDT COMPREHENSIVE METABOLIC PANEL Routine Gen Lab 12/05/2016 7:42 AM CDT DIFFERENTIAL AUTO Routine Gen Lab 11/14/2016 8:0 5 AM CDT CBC WITH AUTO DIFFERENTIAL Routine Gen Lab 11/14/2016 8:05 AM CDT COMPREHENSIVE METABOLIC PANEL STAT 11/14/2016 8:05 AM CDT DIFFERENTIAL AUTO Routine Gen Lab 10/24/2016 10: 30 AM CDT CBC WITH AUTO DIFFERENTIAL Routine Gen Lab 10/24/2016 10:30 AM CDT COMPREHENSIVE METABOLIC PANEL STAT 10/24/2016 10:30 AM CDT DIFFERENTIAL AUTO Routine Gen Lab 10/03/2016 10: 15 AM CDT CBC WITH AUTO DIFFERENTIAL Routine Gen Lab 10/03/2016 10:15 AM CDT DIFFERENTIAL AUTO Routine Gen Lab 09/24/2016 3:0 9 PM CDT GLOM FILT RATE, ESTIMATED STAT 09/24/2016 3:09 PM CDT CBC WITH AUTO DIFFERENTIAL Routine Gen Lab 09/24/2016 3:09 PM CDT COMPREHENSIVE METABOLIC PANEL STAT 09/24/2016 3:09 PM CDT documented in this encounter Results * (ABNORMAL) Comprehensive metabolic panel (07/15/2017 2:35 PM COUNTER CUTTER) [facility] Sodium 139 135 - 145 mmol/L [facility] Potassium, pl 3.8 3.3 - 4.9 mmol/L [facility] CO2 29 22 - 32 mmol/L [facility] BUN 21 8 - 25 mg/dL [facility] Glucose 67(L) 70 - 199 mg/dL [facility] Comment: Interpretive Data Fasting glucose >/= 126 mg/dl is diagnostic for diabetes. ?? Fasting is defined as no caloric intake for at least 8 hours. Fasting glucose between 100 mg/dl to 125 mg/dl is diagnostic of prediabetes. In a patient with classic symptoms of hyperglycemia or hyperglycemic crisis, a random glucose >/= 200 mg/dl is diagnostic for diabetes. In the absence of unequivocal hyperglycemia, results should be confirmed by repeat testing. The classification and Diagnosis of Diabetes Diabetes Care 2017;40 (Suppl. 1):S11. Current interpretive data was last revised 2017. Creatinine 0.67 0.60 - 1.10 mg/dL [facility] Calcium 9.6 8.5 - 10.3 mg/dL [facility] Chloride 100 97 - 110 mmol/L [facility] Albumin 4.7 3.5 - 5.0 g/dL [facility] AST 15 10 - 45 Units/L [facility] ALT 15 7 - 45 Units/L [facility] Alk phos 72 40 - 130 Units/L [facility] Bilirubin, total 0.2 0.1 - 1.2 mg/dL [facility] Comment:Repeated and verifie d. Protein, pl 7.7 6.5 - 8.5 g/dL [facility] Anion gap 10 2 - 15 mmol/L [facility] Blood specimen (specimen) 07/15/2017 2:35 PM COUNTER CUTTER 07/15/2017 2:37 PM COUNTER CUTTER Narrative [facility] - 07/15/2017 3:34 PM COUNTER CUTTER Jeanette Gilman MD LAB BLOOD ORDERABLES Final Result Performing Organization Address [facility] Co de Phone Number [facility] [place] [address] * (ABNORMAL) Differential, auto (07/15/2017 2:35 PM COUNTER CUTTER) Neutrophil pct 74.0 % [facility] Imm gran pct 0.2 % [facility] Lymphocyte pct 15.3 % [facility] Monocyte pct 8.1 % [facility] Eosinophil pct 2.2 % [facility] Basophil pct 0.2 % [facility] Neutrophil abs 3.29 1.70 - 6.50 K/cumm [facility] Imm gran abs 0.01 0.00 - 0.10 K/cumm [facility] Lymphocyte abs 0.68(L) 0.80 - 3.30 K/cumm [facility] Monocyte abs 0.36 0.20 - 0.80 K/cumm [facility] Eosinophil abs 0.10 0.00 - 0.50 K/cumm [facility] Basophil abs 0.01 0.00 - 0.10 K/cumm [facility] Blood specimen (specimen) 07/15/2017 2:35 PM COUNTER CUTTER 07/15/2017 2:37 PM COUNTER CUTTER Narrative [facility] - 07/15/2017 2:39 PM COUNTER CUTTER us Jeanette Gilman MD LAB BLOOD ORDERABLES Final Result Performing Organization Address [facility]/ZIP Co de Phone Number [facility] [place] [address] * (ABNORMAL) CBC with auto differential (07/15/2017 2:35 PM COUNTER CUTTER) WBC 4.45 3.80 - 9.90 K/cumm [facility] RBC 3.73(L) 3.90 - 5.20 M/cumm [facility] Hgb 12.3 11.9 - 15.5 g/dL [facility] Hct 36.4 35.6 - 45.5 % [facility] MCV 97.6(H) 81.3 - 96.[address] [facility] MCH 33.0 27.1 - 33.[address] [facility] MCHC 33.8 32.3 - 35.7 g/dL [facility] RDW CV 11.9 11.1 - 14.9 % [facility] RDW SD 43.0 35.7 - 48.[address] [facility] Plt 256 150 - 400 K/cumm [facility] MPV 9.0(L) 9.1 - 12.[address] [facility] NRBC 0.0 0.0 - 0.2 % [facility] NRBC abs 0.00 0.00 - 0.01 K/cumm [facility] Blood specimen (specimen) 07/15/2017 2:35 PM COUNTER CUTTER 07/15/2017 2:37 PM COUNTER CUTTER Narrative [facility] - 07/15/2017 2:39 PM COUNTER CUTTER us Jeanette Gilman MD LAB BLOOD ORDERABLES Final Result [facility] [place] [address] * Protime-INR (04/24/2017 8:15 AM CDT) Pathologist [facility] PT 11.8 9.2 - 14.[address] [facility] INR 1.03 0.81 - 1.[address] [facility] Comment: Interpretive Data Inpatient therapeutic ranges* Atrial fibrillation ?2.0-3.0 INR Venous thrombo-embolism ?2.0-3.0 INR Bioprosthetic heart valve ?* Mechanical heart valve, bileaflet or tilting disk,aortic position ? 2.0-3.0 INR All other,or bileaflet or tilting disk, in mitral position ? 2.5-3.5 INR *See the pharmacy resource directory (PHRED) for an updated copy of the Tool Book at [email or web address] Current Interpretive Data was last revised 2011. Blood specimen (specimen) 04/24/2017 8:15 AM CDT 04/24/2017 8:56 AM CDT us Jeanette Gilman MD LAB BLOOD ORDERABLES Final Result [facility] One [facility] [place] [address] * Comprehensive metabolic panel (04/24/2017 8:15 AM CDT) Sodium 142 135 - 145 mmol/L [facility] Potassium, pl 4.0 3.3 - 4.9 mmol/L [facility] CO2 30 22 - 32 mmol/L [facility] BUN 19 8 - 25 mg/dL [facility] Glucose 101 70 - 199 mg/dL [facility] Creatinine 0.62 0.60 - 1.10 mg/dL [facility] Calcium 8.9 8.5 - 10.3 mg/dL [facility] Chloride 105 97 - 110 mmol/L [facility] Albumin 4.1 3.5 - 5.0 g/dL [facility] AST 13 10 - 45 Units/L [facility] ALT 12 7 - 45 Units/L [facility] Alk phos 82 40 - 130 Units/L [facility] Bilirubin, total 0.2 0.1 - 1.2 mg/dL [facility] Protein, pl 6.8 6.5 - 8.5 g/dL [facility] Anion gap 7 2 - 15 mmol/L [facility] Blood specimen (specimen) 04/24/2017 8:15 AM CDT 04/24/2017 8:20 AM CDT Jeanette Gilman MD LAB BLOOD ORDERABLES Final Result Performing Organization Address [facility] Co de Phone Number [facility] [place] [address] * (ABNORMAL) Differential, auto (04/24/2017 8:15 AM CDT) Neutrophil pct 75.0 % [facility] Imm gran pct 1.1 % [facility] Lymphocyte pct 11.8 % [facility] Monocyte pct 11.1 % [facility] Eosinophil pct 0.5 % [facility] Basophil pct 0.5 % [facility] Neutrophil abs 4.27 1.70 - 6.50 K/cumm [facility] Imm gran abs 0.06 0.00 - 0.10 K/cumm [facility] Lymphocyte abs 0.67(L) 0.80 - 3.30 K/cumm [facility] Monocyte abs 0.63 0.20 - 0.80 K/cumm [facility] Eosinophil abs 0.03 0.00 - 0.50 K/cumm [facility] Basophil abs 0.03 0.00 - 0.10 K/cumm [facility] Blood specimen (specimen) 04/24/2017 8:15 AM CDT 04/24/2017 8:20 AM CDT Jeanette Gilman MD LAB BLOOD ORDERABLES Final Result Performing Organization Address City/[facility]/ZIP Co de Phone Number [facility] [place] [address] * (ABNORMAL) CBC with auto differential (04/24/2017 8:15 AM CDT) WBC 5.69 3.80 - 9.90 K/cumm [facility] RBC 2.67(L) 3.90 - 5.20 M/cumm [facility] Hgb 8.9(L) 11.9 - 15.5 g/dL [facility] Hct 26.1(L) 35.6 - 45.5 % [facility] MCV 97.8(H) 81.3 - 96.[address] [facility] MCH 33.3 27.1 - 33.[address] [facility] MCHC 34.1 32.3 - 35.7 g/dL [facility] RDW CV 14.3 11.1 - 14.9 % [facility] RDW SD 48.2(H) 35.7 - 48.[address] [facility] Plt 263 150 - 400 K/cumm [facility] MPV 8.9(L) 9.1 - 12.[address] [facility] NRBC 0.0 0.0 - 0.2 % [facility] NRBC abs 0.00 0.00 - 0.01 K/cumm [facility] Blood specimen (specimen) 04/24/2017 8:15 AM CDT 04/24/2017 8:20 AM CDT us Jeanette Gilman MD LAB BLOOD ORDERABLES Final Result [facility] One [facility] Department [place] [address] * Comprehensive metabolic panel (04/10/2017 8:08 AM CDT) Pathologist [facility] Sodium 139 135 - 145 mmol/L [facility] Potassium, pl 3.8 3.3 - 4.9 mmol/L [facility] CO2 30 22 - 32 mmol/L [facility] BUN 16 8 - 25 mg/dL [facility] Glucose 100 70 - 199 mg/dL [facility] Creatinine 0.60 0.60 - 1.10 mg/dL [facility] Calcium 9.1 8.5 - 10.3 mg/dL [facility] Chloride 103 97 - 110 mmol/L [facility] Albumin 4.1 3.5 - 5.0 g/dL [facility] AST 11 10 - 45 Units/L [facility] ALT 10 7 - 45 Units/L [facility] Alk phos 85 40 - 130 Units/L [facility] Bilirubin, total 0.2 0.1 - 1.2 mg/dL [facility] Comment:Repeated and verifie d. Protein, pl 7.0 6.5 - 8.5 g/dL [facility] Anion gap 6 2 - 15 mmol/L [facility] Blood specimen (specimen) 04/10/2017 8:08 AM CDT 04/10/2017 8:09 AM CDT us Jeanette Gilman MD LAB BLOOD ORDERABLES Final Result [facility] [place] [address] * (ABNORMAL) Differential, auto (04/10/2017 8:08 AM CDT) Neutrophil pct 68.5 % [facility] Imm gran pct 1.6 % [facility] Lymphocyte pct 15.5 % [facility] Monocyte pct 13.8 % [facility] Eosinophil pct 0.3 % [facility] Basophil pct 0.3 % [facility] Neutrophil abs 4.33 1.70 - 6.50 K/cumm [facility] Imm gran abs 0.10 0.00 - 0.10 K/cumm [facility] Lymphocyte abs 0.98 0.80 - 3.30 K/cumm [facility] Monocyte abs 0.87(H) 0.20 - 0.80 K/cumm [facility] Eosinophil abs 0.02 0.00 - 0.50 K/cumm [facility] Basophil abs 0.02 0.00 - 0.10 K/cumm [facility] Blood specimen (specimen) 04/10/2017 8:08 AM CDT 04/10/2017 8:09 AM CDT us Jeanette Gilman MD LAB BLOOD ORDERABLES Final Result [facility] [place] [address] * (ABNORMAL) CBC with auto differential (04/10/2017 8:08 AM CDT) [facility] WBC 6.32 3.80 - 9.90 K/cumm [facility] RBC 3.03(L) 3.90 - 5.20 M/cumm [facility] Hgb 10.2(L) 11.9 - 15.5 g/dL [facility] Hct 29.6(L) 35.6 - 45.5 % [facility] MCV 97.7(H) 81.3 - 96.[address] [facility] MCH 33.7(H) 27.1 - 33.[address] [facility] MCHC 34.5 32.3 - 35.7 g/dL [facility] RDW CV 12.4 11.1 - 14.9 % [facility] RDW SD 43.6 35.7 - 48.[address] [facility] Plt 267 150 - 400 K/cumm [facility] MPV 9.2 9.1 - 12.[address] [facility] NRBC 0.0 0.0 - 0.2 % [facility] NRBC abs 0.00 0.00 - 0.01 K/cumm [facility] Blood specimen (specimen) 04/10/2017 8:08 AM CDT 04/10/2017 8:09 AM CDT us Jeanette Gilman MD LAB BLOOD ORDERABLES Final Result [facility] [place] [address] * Comprehensive metabolic panel (03/27/2017 8:10 AM CDT) [facility] Sodium 138 135 - 145 mmol/L [facility] Potassium, pl 4.0 3.3 - 4.9 mmol/L [facility] CO2 27 22 - 32 mmol/L [facility] BUN 24 8 - 25 mg/dL [facility] Glucose 105 70 - 199 mg/dL [facility] Creatinine 0.63 0.60 - 1.10 mg/dL [facility] Calcium 9.0 8.5 - 10.3 mg/dL [facility] Chloride 104 97 - 110 mmol/L [facility] Albumin 4.3 3.5 - 5.0 g/dL [facility] AST 14 10 - 45 Units/L [facility] ALT 15 7 - 45 Units/L [facility] Alk phos 73 40 - 130 Units/L [facility] Bilirubin, total 0.2 0.1 - 1.2 mg/dL [facility] Comment:Repeated and verifie d. Protein, pl 7.2 6.5 - 8.5 g/dL [facility] Anion gap 8 2 - 15 mmol/L [facility] Blood specimen (specimen) 03/27/2017 8:10 AM CDT 03/27/2017 8:15 AM CDT us Jeanette Gilman MD LAB BLOOD ORDERABLES Final Result [facility] [place] [address] * Differential, auto (03/27/2017 8:10 AM CDT) Neutrophil pct 65.3 % [facility] Imm gran pct 1.3 % [facility] Lymphocyte pct 21.1 % [facility] Monocyte pct 10.9 % [facility] Eosinophil pct 0.8 % [facility] Basophil pct 0.6 % [facility] Neutrophil abs 4.12 1.70 - 6.50 K/cumm [facility] Imm gran abs 0.08 0.00 - 0.10 K/cumm [facility] Lymphocyte abs 1.33 0.80 - 3.30 K/cumm [facility] Monocyte abs 0.69 0.20 - 0.80 K/cumm [facility] Eosinophil abs 0.05 0.00 - 0.50 K/cumm [facility] Basophil abs 0.04 0.00 - 0.10 K/cumm [facility] Blood specimen (specimen) 03/27/2017 8:10 AM CDT 03/27/2017 8:15 AM CDT Jeanette Gilman MD LAB BLOOD ORDERABLES Final Result [facility] [place] [address] * (ABNORMAL) CBC with auto differential (03/27/2017 8:10 AM CDT) WBC 6.31 3.80 - 9.90 K/cumm [facility] RBC 3.28(L) 3.90 - 5.20 M/cumm [facility] Hgb 11.1(L) 11.9 - 15.5 g/dL [facility] Hct 32.7(L) 35.6 - 45.5 % [facility] MCV 99.7(H) 81.3 - 96.[address] [facility] MCH 33.8(H) 27.1 - 33.[address] [facility] MCHC 33.9 32.3 - 35.7 g/dL [facility] RDW CV 11.9 11.1 - 14.9 % [facility] RDW SD 43.0 35.7 - 48.[address] [facility] Plt 277 150 - 400 K/cumm [facility] MPV 9.2 9.1 - 12.[address] [facility] NRBC 0.0 0.0 - 0.2 % [facility] NRBC abs 0.00 0.00 - 0.01 K/cumm [facility] Blood specimen (specimen) 03/27/2017 8:10 AM CDT 03/27/2017 8:15 AM CDT us Jeanette Gilman MD LAB BLOOD ORDERABLES Final Result [facility] [place] [address] * Comprehensive metabolic panel (03/13/2017 8:15 AM CDT) Pathologist [facility] Sodium 140 135 - 145 mmol/L [facility] Potassium, pl 4.3 3.3 - 4.9 mmol/L [facility] CO2 29 22 - 32 mmol/L [facility] BUN 18 8 - 25 mg/dL [facility] Glucose 103 70 - 199 mg/dL [facility] Creatinine 0.61 0.60 - 1.10 mg/dL [facility] Calcium 9.7 8.5 - 10.3 mg/dL [facility] Chloride 103 97 - 110 mmol/L [facility] Albumin 4.4 3.5 - 5.0 g/dL [facility] AST 17 10 - 45 Units/L [facility] ALT 15 7 - 45 Units/L [facility] Alk phos 66 40 - 130 Units/L [facility] Bilirubin, total 0.2 0.1 - 1.2 mg/dL [facility] Protein, pl 7.3 6.5 - 8.5 g/dL [facility] Anion gap 8 2 - 15 mmol/L [facility] Blood specimen (specimen) 03/13/2017 8:15 AM CDT 03/13/2017 8:21 AM CDT us Jeanette Gilman MD LAB BLOOD ORDERABLES Final Result [facility] One [facility] [place] [address] * Differential, auto (03/13/2017 8:15 AM CDT) Neutrophil pct 53.8 % [facility] Imm gran pct 0.4 % [facility] Lymphocyte pct 32.2 % [facility] Monocyte pct 9.3 % [facility] Eosinophil pct 3.7 % [facility] Basophil pct 0.6 % [facility] Neutrophil abs 2.59 1.70 - 6.50 K/cumm [facility] Imm gran abs 0.02 0.00 - 0.10 K/cumm [facility] Lymphocyte abs 1.55 0.80 - 3.30 K/cumm [facility] Monocyte abs 0.45 0.20 - 0.80 K/cumm [facility] Eosinophil abs 0.18 0.00 - 0.50 K/cumm [facility] Basophil abs 0.03 0.00 - 0.10 K/cumm [facility] Blood specimen (specimen) 03/13/2017 8:15 AM CDT 03/13/2017 8:21 AM CDT us Jeanette Gilman MD LAB BLOOD ORDERABLES Final Result Performing Organization Address City/[facility]/ZIP Co de Phone Number [facility] Department [place] [address] * (ABNORMAL) CBC with auto differential (03/13/2017 8:15 AM CDT) WBC 4.82 3.80 - 9.90 K/cumm [facility] RBC 3.44(L) 3.90 - 5.20 M/cumm [facility] Hgb 11.9 11.9 - 15.5 g/dL [facility] Hct 34.7(L) 35.6 - 45.5 % [facility] MCV 100.9(H) 81.3 - 96.[address] [facility] MCH 34.6(H) 27.1 - 33.[address] [facility] MCHC 34.3 32.3 - 35.7 g/dL [facility] RDW CV 11.6 11.1 - 14.9 % [facility] RDW SD 42.4 35.7 - 48.[address] [facility] Plt 239 150 - 400 K/cumm [facility] MPV 9.1 9.1 - 12.[address] [facility] NRBC 0.0 0.0 - 0.2 % [facility] NRBC abs 0.00 0.00 - 0.01 K/cumm [facility] Blood specimen (specimen) 03/13/2017 8:15 AM CDT 03/13/2017 8:21 AM CDT us Jeanette Gilman MD LAB BLOOD ORDERABLES Final Result [facility] [place] [address] * Comprehensive metabolic panel (01/16/2017 9:15 AM CDT) Sodium 140 135 - 145 mmol/L [facility] Potassium, pl 4.3 3.3 - 4.9 mmol/L [facility] CO2 26 22 - 32 mmol/L [facility] BUN 25 8 - 25 mg/dL [facility] Glucose 120 70 - 199 mg/dL [facility] Creatinine 0.64 0.60 - 1.10 mg/dL [facility] Calcium 9.5 8.5 - 10.3 mg/dL [facility] Chloride 104 97 - 110 mmol/L [facility] Albumin 4.4 3.5 - 5.0 g/dL [facility] AST 16 10 - 45 Units/L [facility] ALT 13 7 - 45 Units/L [facility] Alk phos 75 40 - 130 Units/L [facility] Bilirubin, total 0.3 0.1 - 1.2 mg/dL [facility] Protein, pl 7.3 6.5 - 8.5 g/dL [facility] Anion gap 10 2 - 15 mmol/L [facility] Blood specimen (specimen) 01/16/2017 9:15 AM CDT 01/16/2017 9:20 AM CDT us Jeanette Gilman MD LAB BLOOD ORDERABLES Final Result [facility] [place] [address] * Magnesium (01/16/2017 9:15 AM CDT) Pathologist [facility] Magnesium 2.0 1.4 - 2.5 mg/dL [facility] Blood specimen (specimen) 01/16/2017 9:15 AM CDT 01/16/2017 9:20 AM CDT Jeanette Gilman MD LAB BLOOD ORDERABLES Final Result [facility] [place] [address] * (ABNORMAL) Differential, auto (01/16/2017 9:15 AM CDT) [facility] Neutrophil pct 87.5 % [facility] Imm gran pct 0.7 % [facility] Lymphocyte pct 7.3 % [facility] Monocyte pct 4.5 % [facility] Eosinophil pct 0.0 % [facility] Basophil pct 0.0 % [facility] Neutrophil abs 7.14(H) 1.70 - 6.50 K/cumm [facility] Imm gran abs 0.06 0.00 - 0.10 K/cumm [facility] Lymphocyte abs 0.60(L) 0.80 - 3.30 K/cumm [facility] Monocyte abs 0.37 0.20 - 0.80 K/cumm [facility] Eosinophil abs 0.00 0.00 - 0.50 K/cumm [facility] Basophil abs 0.00 0.00 - 0.10 K/cumm [facility] Blood specimen (specimen) 01/16/2017 9:15 AM CDT 01/16/2017 9:20 AM CDT us Jeanette Gilman MD LAB BLOOD ORDERABLES Final Result [facility] [place] [address] * (ABNORMAL) CBC with auto differential (01/16/2017 9:15 AM CDT) [facility] WBC 8.17 3.80 - 9.90 K/cumm [facility] RBC 2.68(L) 3.90 - 5.20 M/cumm [facility] Hgb 9.5(L) 11.9 - 15.5 g/dL [facility] Hct 27.9(L) 35.6 - 45.5 % [facility] MCV 104.1(H) 81.3 - 96.[address] [facility] MCH 35.4(H) 27.1 - 33.[address] [facility] MCHC 34.1 32.3 - 35.7 g/dL [facility] RDW CV 14.1 11.1 - 14.9 % [facility] RDW SD 54.4(H) 35.7 - 48.[address] [facility] Plt 240 150 - 400 K/cumm [facility] MPV 8.5(L) 9.1 - 12.[address] [facility] NRBC 0.0 0.0 - 0.2 % [facility] NRBC abs 0.00 0.00 - 0.01 K/cumm [facility] Blood specimen (specimen) 01/16/2017 9:15 AM CDT 01/16/2017 9:20 AM CDT Jeanette Gilman MD LAB BLOOD ORDERABLES Final Result Performing Organization Address [facility] de Phone Number [facility] [place] [address] * Magnesium (12/26/2016 8:04 AM CDT) Pathologist [facility] Magnesium 1.9 1.4 - 2.5 mg/dL [facility] Blood specimen (specimen) 12/26/2016 8:04 AM CDT 12/26/2016 8:14 AM CDT Jeanette Gilman MD LAB BLOOD ORDERABLES Final Result Performing Organization Address City/[facility] de Phone Number [facility] [place] [address] * (ABNORMAL) Comprehensive metabolic panel (12/26/2016 8:04 AM CDT) Sodium 140 135 - 145 mmol/L [facility] Potassium, pl 4.0 3.3 - 4.9 mmol/L [facility] CO2 27 22 - 32 mmol/L [facility] BUN 27(H) 8 - 25 mg/dL [facility] Glucose 122 70 - 199 mg/dL [facility] Creatinine 0.58(L) 0.60 - 1.10 mg/dL [facility] Calcium 9.4 8.5 - 10.3 mg/dL [facility] Chloride 105 97 - 110 mmol/L [facility] Albumin 4.3 3.5 - 5.0 g/dL [facility] AST 20 10 - 45 Units/L [facility] ALT 19 7 - 45 Units/L [facility] Alk phos 60 40 - 130 Units/L [facility] Bilirubin, total 0.2 0.1 - 1.2 mg/dL [facility] Protein, pl 7.0 6.5 - 8.5 g/dL [facility] Anion gap 8 2 - 15 mmol/L [facility] Blood specimen (specimen) 12/26/2016 8:04 AM CDT 12/26/2016 8:14 AM CDT us Jeanette Gilman MD LAB BLOOD ORDERABLES Final Result [facility] [place] [address] * (ABNORMAL) Differential, auto (12/26/2016 8:04 AM CDT) Neutrophil pct 82.7 % [facility] Imm gran pct 0.5 % [facility] Lymphocyte pct 9.8 % [facility] Monocyte pct 6.7 % [facility] Eosinophil pct 0.0 % [facility] Basophil pct 0.3 % [facility] Neutrophil abs 6.27 1.70 - 6.50 K/cumm [facility] Imm gran abs 0.04 0.00 - 0.10 K/cumm [facility] Lymphocyte abs 0.74(L) 0.80 - 3.30 K/cumm [facility] Monocyte abs 0.51 0.20 - 0.80 K/cumm [facility] Eosinophil abs 0.00 0.00 - 0.50 K/cumm [facility] Basophil abs 0.02 0.00 - 0.10 K/cumm [facility] Blood specimen (specimen) 12/26/2016 8:04 AM CDT 12/26/2016 8:14 AM CDT us Jeanette Gilman MD LAB BLOOD ORDERABLES Final Result Performing Organization Address City/[facility]/ZIP Co de Phone Number [facility] Department [place] [address] * (ABNORMAL) CBC with auto differential (12/26/2016 8:04 AM CDT) Pathologist [facility] WBC 7.58 3.80 - 9.90 K/cumm [facility] RBC 2.53(L) 3.90 - 5.20 M/cumm [facility] Hgb 8.8(L) 11.9 - 15.5 g/dL [facility] Hct 26.0(L) 35.6 - 45.5 % [facility] MCV 102.8(H) 81.3 - 96.[address] [facility] MCH 34.8(H) 27.1 - 33.[address] [facility] MCHC 33.8 32.3 - 35.7 g/dL [facility] RDW CV 15.7(H) 11.1 - 14.9 % [facility] RDW SD 58.4(H) 35.7 - 48.[address] [facility] Plt 222 150 - 400 K/cumm [facility] MPV 9.1 9.1 - 12.[address] [facility] NRBC 0.0 0.0 - 0.2 % [facility] NRBC abs 0.00 0.00 - 0.01 K/cumm [facility] Blood specimen (specimen) 12/26/2016 8:04 AM CDT 12/26/2016 8:14 AM CDT us Jeanette Gilman MD LAB BLOOD ORDERABLES Final Result Performing Organization Address City/[facility]/ZIP Co de Phone Number [facility] [place] [address] * (ABNORMAL) Comprehensive metabolic panel (12/05/2016 7:42 AM CDT) [facility] Sodium 140 135 - 145 mmol/L [facility] Potassium, pl 4.1 3.3 - 4.9 mmol/L [facility] CO2 26 22 - 32 mmol/L [facility] BUN 19 8 - 25 mg/dL [facility] Glucose 110 70 - 199 mg/dL [facility] Creatinine 0.58(L) 0.60 - 1.10 mg/dL [facility] Calcium 9.3 8.5 - 10.3 mg/dL [facility] Chloride 104 97 - 110 mmol/L [facility] Albumin 4.6 3.5 - 5.0 g/dL [facility] AST 22 10 - 45 Units/L [facility] ALT 17 7 - 45 Units/L [facility] Alk phos 66 40 - 130 Units/L [facility] Bilirubin, total 0.4 0.1 - 1.2 mg/dL [facility] Protein, pl 7.3 6.5 - 8.5 g/dL [facility] Anion gap 10 2 - 15 mmol/L [facility] Blood specimen (specimen) 12/05/2016 7:42 AM CDT 12/05/2016 7:50 AM CDT us Jeanette Gilman MD LAB BLOOD ORDERABLES Final Result [facility] One [facility] Department [place] [address] * Differential, auto (12/05/2016 7:42 AM CDT) [facility] Neutrophil pct 80.4 % [facility] Imm gran pct 0.4 % [facility] Lymphocyte pct 12.1 % [facility] Monocyte pct 6.8 % [facility] Eosinophil pct 0.0 % [facility] Basophil pct 0.3 % [facility] Neutrophil abs 6.23 1.70 - 6.50 K/cumm [facility] Imm gran abs 0.03 0.00 - 0.10 K/cumm [facility] Lymphocyte abs 0.94 0.80 - 3.30 K/cumm [facility] Monocyte abs 0.53 0.20 - 0.80 K/cumm [facility] Eosinophil abs 0.00 0.00 - 0.50 K/cumm [facility] Basophil abs 0.02 0.00 - 0.10 K/cumm [facility] Blood specimen (specimen) 12/05/2016 7:42 AM CDT 12/05/2016 7:50 AM CDT Jeanette Gimlan MD LAB BLOOD ORDERABLES Final Result Performing Organization Address City/State/[facility] Co de Phone Number [facility] One [facility] Department [place] [address] * (ABNORMAL) CBC with auto differential (12/05/2016 7:42 AM CDT) WBC 7.75 3.80 - 9.90 K/cumm [facility] RBC 3.08(L) 3.90 - 5.20 M/cumm [facility] Hgb 10.2(L) 11.9 - 15.5 g/dL [facility] Hct 30.3(L) 35.6 - 45.5 % [facility] MCV 98.4(H) 81.3 - 96.[address] [facility] MCH 33.1 27.1 - 33.[address] [facility] MCHC 33.7 32.3 - 35.7 g/dL [facility] RDW CV 15.9(H) 11.1 - 14.9 % [facility] RDW SD 56.5(H) 35.7 - 48.[address] [facility] Plt 258 150 - 400 K/cumm [facility] MPV 8.6(L) 9.1 - 12.[address] [facility] NRBC 0.0 0.0 - 0.2 % [facility] NRBC abs 0.00 0.00 - 0.01 K/cumm [facility] Blood specimen (specimen) 12/05/2016 7:42 AM CDT 12/05/2016 7:50 AM CDT Jeanette Gilman MD LAB BLOOD ORDERABLES Final Result [facility] [place] [address] * (ABNORMAL) Comprehensive metabolic panel (11/14/2016 8:05 AM CDT) Pathologist [facility] Sodium 139 135 - 145 mmol/L [facility] Potassium, pl 4.0 3.3 - 4.9 mmol/L [facility] CO2 26 22 - 32 mmol/L [facility] BUN 21 8 - 25 mg/dL [facility] Glucose 106 70 - 199 mg/dL [facility] Creatinine 0.59(L) 0.60 - 1.10 mg/dL [facility] Calcium 9.4 8.5 - 10.3 mg/dL [facility] Chloride 101 97 - 110 mmol/L [facility] Comment:fixed result mapping Albumin 4.5 3.5 - 5.0 g/dL [facility] AST 19 10 - 45 Units/L [facility] ALT 17 7 - 45 Units/L [facility] Alk phos 72 40 - 130 Units/L [facility] Bilirubin, total 0.4 0.1 - 1.2 mg/dL [facility] Protein, pl 6.9 6.5 - 8.5 g/dL [facility] Anion gap 12 2 - 15 mmol/L [facility] Blood specimen (specimen) 11/14/2016 8:05 AM CDT 11/14/2016 8:13 AM CDT us Jeanette Gilman MD LAB BLOOD ORDERABLES Final Result [facility] One [facility] Department [place] [address] * (ABNORMAL) Differential, auto (11/14/2016 8:05 AM CDT) Pathologist [facility] Neutrophil pct 81.5 % [facility] Imm gran pct 0.4 % [facility] Lymphocyte pct 12.0 % [facility] Monocyte pct 5.9 % [facility] Eosinophil pct 0.0 % [facility] Basophil pct 0.2 % [facility] Neutrophil abs 6.72(H) 1.70 - 6.50 K/cumm [facility] Imm gran abs 0.03 0.00 - 0.10 K/cumm [facility] Lymphocyte abs 0.99 0.80 - 3.30 K/cumm [facility] Monocyte abs 0.49 0.20 - 0.80 K/cumm [facility] Eosinophil abs 0.00 0.00 - 0.50 K/cumm [facility] Basophil abs 0.02 0.00 - 0.10 K/cumm [facility] Blood specimen (specimen) 11/14/2016 8:05 AM CDT 11/14/2016 8:13 AM CDT us Jeanette Gilman MD LAB BLOOD ORDERABLES Final Result [facility] One [facility] [place] [address] * (ABNORMAL) CBC with auto differential (11/14/2016 8:05 AM CDT) WBC 8.25 3.80 - 9.90 K/cumm [facility] RBC 3.28(L) 3.90 - 5.20 M/cumm [facility] Hgb 10.6(L) 11.9 - 15.5 g/dL [facility] Hct 30.9(L) 35.6 - 45.5 % [facility] MCV 94.2 81.3 - 96.[address] [facility] MCH 32.3 27.1 - 33.[address] [facility] MCHC 34.3 32.3 - 35.7 g/dL [facility] RDW CV 15.0(H) 11.1 - 14.9 % [facility] RDW SD 50.7(H) 35.7 - 48.[address] [facility] Plt 245 150 - 400 K/cumm [facility] MPV 8.7(L) 9.1 - 12.[address] [facility] NRBC 0.0 0.0 - 0.2 % [facility] NRBC abs 0.00 0.00 - 0.01 K/cumm [facility] Blood specimen (specimen) 11/14/2016 8:05 AM CDT 11/14/2016 8:13 AM CDT Jeanette Gilman MD LAB BLOOD ORDERABLES Final Result Performing Organization Address [facility] de Phone Number [facility] [place] [address] * (ABNORMAL) Comprehensive metabolic panel (10/24/2016 10:30 AM CDT) Pathologist [facility] Sodium 142 135 - 145 mmol/L [facility] Potassium, pl 3.8 3.3 - 4.9 mmol/L [facility] CO2 27 22 - 32 mmol/L [facility] BUN 19 8 - 25 mg/dL [facility] Glucose 127 70 - 199 mg/dL [facility] Creatinine 0.50(L) 0.60 - 1.10 mg/dL [facility] Calcium 9.3 8.5 - 10.3 mg/dL [facility] Chloride 104 97 - 110 mmol/L [facility] Comment:fixed result mapping Albumin 4.4 3.5 - 5.0 g/dL [facility] AST 19 10 - 45 Units/L [facility] ALT 26 7 - 45 Units/L [facility] Alk phos 80 40 - 130 Units/L [facility] Bilirubin, total 0.3 0.1 - 1.2 mg/dL [facility] Protein, pl 6.9 6.5 - 8.5 g/dL [facility] Anion gap 11 2 - 15 mmol/L [facility] Blood specimen (specimen) 10/24/2016 10:30 AM CDT 10/24/2016 10:36 AM CDT Jeanette Gilman MD LAB BLOOD ORDERABLES Final Result Performing Organization Address [facility]/ZIP Co de Phone Number [facility] [place] [address] * (ABNORMAL) Differential, auto (10/24/2016 10:30 AM CDT) Pathologist [facility] Neutrophil pct 93.6 % [facility] Imm gran pct 0.4 % [facility] Lymphocyte pct 4.3 % [facility] Monocyte pct 1.6 % [facility] Eosinophil pct 0.0 % [facility] Basophil pct 0.1 % [facility] Neutrophil abs 13.25(H) 1.70 - 6.50 K/cumm [facility] Imm gran abs 0.06 0.00 - 0.10 K/cumm [facility] Lymphocyte abs 0.61(L) 0.80 - 3.30 K/cumm [facility] Monocyte abs 0.22 0.20 - 0.80 K/cumm [facility] Eosinophil abs 0.00 0.00 - 0.50 K/cumm [facility] Basophil abs 0.02 0.00 - 0.10 K/cumm [facility] Blood specimen (specimen) 10/24/2016 10:30 AM CDT 10/24/2016 10:36 AM CDT us Jeanette Gilman MD LAB BLOOD ORDERABLES Final Result [facility] One [facility] [place] [address] * (ABNORMAL) CBC with auto differential (10/24/2016 10:30 AM CDT) [facility] WBC 14.16(H) 3.80 - 9.90 K/cumm [facility] RBC 3.41(L) 3.90 - 5.20 M/cumm [facility] Hgb 10.9(L) 11.9 - 15.5 g/dL [facility] Hct 31.5(L) 35.6 - 45.5 % [facility] MCV 92.4 81.3 - 96.[address] [facility] MCH 32.0 27.1 - 33.[address] [facility] MCHC 34.6 32.3 - 35.7 g/dL [facility] RDW CV 13.8 11.1 - 14.9 % [facility] RDW SD 45.0 35.7 - 48.[address] [facility] Plt 337 150 - 400 K/cumm [facility] MPV 9.7 9.1 - 12.[address] [facility] NRBC 0.0 0.0 - 0.2 % [facility] NRBC abs 0.00 0.00 - 0.01 K/cumm [facility] Blood specimen (specimen) 10/24/2016 10:30 AM CDT 10/24/2016 10:36 AM CDT Jeanette Gilman MD LAB BLOOD ORDERABLES Final Result Performing Organization Address City/[facility] Co de Phone Number [facility] [place] [address] * (ABNORMAL) Differential, auto (10/03/2016 10:15 AM CDT) Neutrophil pct 91.8 % [facility] Imm gran pct 0.2 % [facility] Lymphocyte pct 5.7 % [facility] Monocyte pct 2.2 % [facility] Eosinophil pct 0.0 % [facility] Basophil pct 0.1 % [facility] Neutrophil abs 12.19(H) 1.70 - 6.50 K/cumm [facility] Imm gran abs 0.03 0.00 - 0.10 K/cumm [facility] Lymphocyte abs 0.75(L) 0.80 - 3.30 K/cumm [facility] Monocyte abs 0.29 0.20 - 0.80 K/cumm [facility] Eosinophil abs 0.00 0.00 - 0.50 K/cumm [facility] Basophil abs 0.01 0.00 - 0.10 K/cumm [facility] Blood specimen (specimen) 10/03/2016 10:15 AM CDT 10/03/2016 10:22 AM CDT Jeanette Gilman MD LAB BLOOD ORDERABLES Final Result Performing Organization Address City/State/[facility] Co de Phone Number [facility] [place] [address] * (ABNORMAL) CBC with auto differential (10/03/2016 10:15 AM CDT) [facility] WBC 13.27(H) 3.80 - 9.90 K/cumm [facility] RBC 3.75(L) 3.90 - 5.20 M/cumm [facility] Hgb 12.0 11.9 - 15.5 g/dL [facility] Hct 35.1(L) 35.6 - 45.5 % [facility] MCV 93.6 81.3 - 96.[address] [facility] MCH 32.0 27.1 - 33.[address] [facility] MCHC 34.2 32.3 - 35.7 g/dL [facility] RDW CV 12.9 11.1 - 14.9 % [facility] RDW SD 44.4 35.7 - 48.[address] [facility] Plt 253 150 - 400 K/cumm [facility] MPV 10.4 9.1 - 12.[address] [facility] NRBC 0.0 0.0 - 0.2 % [facility] NRBC abs 0.00 0.00 - 0.01 K/cumm [facility] Blood specimen (specimen) 10/03/2016 10:15 AM CDT 10/03/2016 10:22 AM CDT us Jeanette Gilman MD LAB BLOOD ORDERABLES Final Result [facility] [place] [address] * Glom Filt Rate, Estimated (09/24/2016 3:09 PM CDT) [facility] Estimated Glomerular Filtration Rate >90 90 - 130 mL/min/1.[address] [facility] Comment: If -Grenadian multiply value by 1.21. ??Estimated glomerular filtration rate determined by MDRD equation recommended by [employer] (Am J Kidney Dis. 2002;39(Suppl 1):S1). ??The MDRD equation was derived from a population of non-hospitalized, non-diabetic chronic kidney disease patients between the ages of 18 - 70. ??It may be unreliable in the setting of acute renal failure. ??The MDRD estimated GFR is not valid in children. Interpretive Data Normal ? >/= 90 mL/min/1.73m2 Mildly decreased* ?60 - 89 mL/min/1.73m2 Mildly to moderately decreased ?? 45 - 59 mL/min/1.73m2 Moderately to severely decreased 30 - 44 mL/min/1.73m2 Severely decreased ? 15 - 29 mL/min/1.73m2 Kidney Failure ? < 15 ??mL/min/1.73m2 *Relative to young adult level If -Grenadian multiply value by 1.16. Estimated glomerular filtration rate is determined by the CKD-EPI equation recommended by the National [employer] (KDIGO 2012 Clinical Practice Guideline for the Evaluation and Management of Chronic Kidney Disease. ?? Kidney Intnl Suppl Jun 2012;3:1). The CKD-EPI equation should not be used for patients with unstable renal function and has not been validated in children and those over 70. Current interpretive data was last reviewed 2016. Blood specimen (specimen) 09/24/2016 3:09 PM CDT 09/24/2016 3:11 PM CDT us Jeanette Gilman MD LAB BLOOD ORDERABLES Final Result [facility] Department [place] [address] * Comprehensive metabolic panel (09/24/2016 3:09 PM CDT) Pathologist [facility] Sodium 142 135 - 145 mmol/L [facility] Potassium, pl 4.2 3.3 - 4.9 mmol/L [facility] CO2 29 22 - 32 mmol/L [facility] BUN 13 8 - 25 mg/dL [facility] Glucose 112 70 - 199 mg/dL [facility] Creatinine 0.67 0.60 - 1.10 mg/dL [facility] Calcium 9.4 8.5 - 10.3 mg/dL [facility] Chloride 104 97 - 110 mmol/L [facility] Comment:fixed result mapping Albumin 4.6 3.5 - 5.0 g/dL [facility] AST 17 10 - 45 Units/L [facility] ALT 24 7 - 45 Units/L [facility] Alk phos 64 40 - 130 Units/L [facility] Bilirubin, total 0.3 0.1 - 1.2 mg/dL [facility] Protein, pl 7.2 6.5 - 8.5 g/dL [facility] Anion gap 9 2 - 15 mmol/L [facility] Blood specimen (specimen) 09/24/2016 3:09 PM CDT 09/24/2016 3:11 PM CDT us Jeanette Gilman MD LAB BLOOD ORDERABLES Final Result [facility] Department [place] [address] * Differential, auto (09/24/2016 3:09 PM CDT) Neutrophil pct 63.9 % [facility] Imm gran pct 0.4 % [facility] Lymphocyte pct 27.4 % [facility] Monocyte pct 6.9 % [facility] Eosinophil pct 1.0 % [facility] Basophil pct 0.4 % [facility] Neutrophil abs 5.21 1.70 - 6.50 K/cumm [facility] Imm gran abs 0.03 0.00 - 0.10 K/cumm [facility] Lymphocyte abs 2.23 0.80 - 3.30 K/cumm [facility] Monocyte abs 0.56 0.20 - 0.80 K/cumm [facility] Eosinophil abs 0.08 0.00 - 0.50 K/cumm [facility] Basophil abs 0.03 0.00 - 0.10 K/cumm [facility] Blood specimen (specimen) 09/24/2016 3:09 PM CDT 09/24/2016 3:11 PM CDT Jeanette Gilman MD LAB BLOOD ORDERABLES Final Result Performing Organization Address [facility] Co de Phone Number [facility] [place] [address] * CBC with auto differential (09/24/2016 3:09 PM CDT) WBC 8.14 3.80 - 9.90 K/cumm [facility] RBC 4.20 3.90 - 5.20 M/cumm [facility] Hgb 13.2 11.9 - 15.5 g/dL [facility] Hct 39.4 35.6 - 45.5 % [facility] MCV 93.8 81.3 - 96.[address] [facility] MCH 31.4 27.1 - 33.[address] [facility] MCHC 33.5 32.3 - 35.7 g/dL [facility] RDW CV 12.6 11.1 - 14.9 % [facility] RDW SD 43.4 35.7 - 48.[address] [facility] Plt 295 150 - 400 K/cumm [facility] MPV 10.2 9.1 - 12.[address] [facility] NRBC 0.0 0.0 - 0.2 % [facility] NRBC abs 0.00 0.00 - 0.01 K/cumm [facility] Blood specimen (specimen) 09/24/2016 3:09 PM CDT 09/24/2016 3:11 PM CDT Jeanette Gilman MD LAB BLOOD ORDERABLES Final Result Performing Organization Address [facility]/ZIP Co de Phone Number [facility] [place] [address] documented in this encounter Visit Diagnoses Not on filedocumented in this encounter Care Teams Machine Operator Relationship Specialty Start Date End Date Richard Sosa MD PCP - General 09/11/16 documented as of this encounter
--- OUTSIDE RECORDS SUMMARY | 2024-06-25 14:27 | XMS_ITS | Encounter Summary ---
Author Organization [facility] Address [address] [place] [address] Phone Care Team Providers Care Pre Sales Technical Consultant Name Role Phone Richard Sosa MD Primary Care Provider [phone] Encounter Details Date Type Department Care Team (Late st Contact Info) Description 08/18/2018 10:45 AM LICENSED PHYSICAL THERAPIST Lab [facility] Oncology [address] [place] [address] Clinical trial participant Social History Tobacco Use Types Packs/Day Years Used Date Smoking Tobacco: Never Smokeless Tobacco: Never Alcohol Use Standard Drinks/Week Comments Yes 0 (1 standard drink = 0.6 oz pur e alcohol) Comments Unknown Sex and Gender Information Value Date Recorded Sex Assigned at Not on file Legal Sex Female 4:26 PM LICENSED PHYSICAL THERAPIST Gender Identity Female 03/21/2021 10:44 PM CDT Sexual Orientation Not on file documented as of this encounter Plan of Treatment Not on file documented as of this encounter Visit Diagnoses Diagnosis Clinical trial participant documented in this encounter Care Teams Pre Sales Technical Consultant Relationship Specialty Start Date End Date Richard Sosa MD PCP - General 09/11/16 documented as of this encounter
--- OUTSIDE RECORDS SUMMARY | 2024-06-25 14:27 | XMS_ITS | Encounter Summary ---
Author Organization [facility] Healthcare Address [address] [place] [address] Care Team Providers Care Nanoelectronics Engineer Name Role Phone Richard Sosa MD Primary Care Provider [phone] Encounter Details Date Type Department Care Team (Late st Contact Info) Description 04/24/2017 12:12 PM CDT - 04/24/2017 1:57 PM CDT Hospital Encounter [facility] OP INTERIM [phone] Ramya Maurer MD [address] [facility] [address] [place] [address] Discharge Disposition: Discharge to home or self care Social History Tobacco Use Types Packs/Day Years Used Date Smoking Tobacco: Never Alcohol Use Standard Drinks/Week Comments Yes 0 (1 standard drink = 0.6 oz pur e alcohol) Comments Unknown Sex and Gender Information Value Date Recorded Sex Assigned at Not on file Legal Sex Female 4:26 PM POLICE LIAISON Gender Identity Female 03/21/2021 10:44 PM CDT [...] Procedure Name Priority Date/Time Associated Diagnosis Comments PORT REMOVAL Routine 04/24/2017 6:24 PM CDT documented in this encounter Results * Port Removal (04/24/2017 6:24 PM CDT) Anatomical Region Laterality Modality Body N/A X-Ray Angiograph y 04/24/2017 6:24 PM CDT Narrative 04/24/2017 7:38 PM CDT RAMYA MAURER M.D. FINAL REPORT ACC# ??Date Time ??Exam [id number] Apr 24, 2017 13:24:00 [id number] Remove Port R EXAMINATION: ??PORT REMOVAL HISTORY: No longer needed ATTENDING PRESENCE: Ramya Maurer M.D., the attending radiologist was present from the beginning to the end of the procedure. ?? SEDATION: The patient did not require conscious sedation. TECHNIQUE: The risks, benefits and alternatives were discussed and informed consent was obtained. ??Prior to beginning the procedure, Long Key Protocol was used to confirm the patient's identity and planned procedure. ??If fluoroscopy was used, fluoroscopy time has been recorded in the electronic medical record. Maximum sterile barriers including cap, mask, hand hygiene, sterile gloves, sterile gown, large sterile drape and 2% chlorhexidine for cutaneous antisepsis were used. ??The area adjacent to the left chest port was sterilely prepped, draped and infiltrated with 1% lidocaine. After making a short transverse incision, the port reservoir was freed using a combination of sharp and blunt dissection. ??The catheter was then removed. ??The deep tissues were approximated using 4-0 Monocryl and the incision closed using skin glue. ESTIMATED BLOOD LOSS: Minimal. CONDITION: Good DISCHARGED TO: home FINDINGS: The port site showed no signs of inflammation. IMPRESSION: ??Port removal Electronically signed by: Ramya Maurer M.D. Requested By: NICHOLE HOLCOMB ??Meri ? Dictated By: ?? RAMYA MAURER M.D. ??on Apr 24 2017 ??2:36P This document has been electronically signed by: RAMYA MAURER M.D. on Apr 24 2017 ??2:36P RAMYA MAURER M.D. FINAL REPORT Attending: ??DANY, ??RAMYA Requesting: ??ZHANG, ??NICHOLE Requesting Fax: ?? Attending Fax: ?? Attending ID: ??[id number] Requesting ID: ??[id number] Report To 1 ID: ??[id number] ? Report To 1 Name: ??, ?? Report To 1 FAX: ?? NextGen Order #: ?? Procedure Note Miscellaneous, Not In File - 04/24/2017 RAMYA MAURER M.D. FINAL REPORT ACC# Date Time Exam [id number] Apr 24, 2017 13:24:00 [id number] Remove Port R EXAMINATION: PORT REMOVAL HISTORY: No longer needed ATTENDING PRESENCE: Ramya Maurer M.D., the attending radiologist was present from the beginning to the end of the procedure. SEDATION: The patient did not require conscious sedation. TECHNIQUE: The risks, benefits and alternatives were discussed and informed consent was obtained. Prior to beginning the procedure, Long Key Protocol was used to confirm the patient's identity and planned procedure. If fluoroscopy was used, fluoroscopy time has been recorded in the electronic medical record. Maximum sterile barriers including cap, mask, hand hygiene, sterile gloves, sterile gown, large sterile drape and 2% chlorhexidine for cutaneous antisepsis were used. The area adjacent to the left chest port was sterilely prepped, draped and infiltrated with 1% lidocaine. After making a short transverse incision, the port reservoir was freed using a combination of sharp and blunt dissection. The catheter was then removed. The deep tissues were approximated using 4-0 Monocryl and the incision closed using skin glue. ESTIMATED BLOOD LOSS: Minimal. CONDITION: Good DISCHARGED TO: home FINDINGS: The port site showed no signs of inflammation. IMPRESSION: Port removal Electronically signed by: Ramya Maurer M.D. Requested By: NICHOLE HOLCOMB M.D. Dictated By: RAMYA MAURER M.D. on Apr 24 2017 2:36P This document has been electronically signed by: RAMYA MAURER M.D. on Apr 24 2017 2:36P RAMYA MAURER M.D. FINAL REPORT Attending: RAMYA MAURER Requesting: NICHOLE HOLCOMB Requesting Fax: Attending Fax: Attending ID: [id number] Requesting ID: [id number] Report To 1 ID: [id number] Report To 1 Name: , Report To 1 FAX: NextGen Order #: us Nichole Holcomb MD IMG IR PROCEDURES Fi nal Result documented in this encounter Visit Diagnoses Not on filedocumented in this encounter Care Teams Nanoelectronics Engineer Relationship Specialty Start Date End Date Richard Sosa MD PCP - General 09/11/16 documented as of this encounter
--- OUTSIDE RECORDS SUMMARY | 2024-06-25 14:27 | XMS_ITS | Encounter Summary ---
Author Organization [facility] Healthcare Address [address] [place] [address] Care Team Providers Care Beam Saw Operator Name Role Phone Richard Sosa MD Primary Care Provider [phone] Encounter Details Date Type Department Care Team (Latest Contact Info) Description 12/18/2017 8:49 AM CDT - 12/18/2017 9:14 AM CDT Hospital Encounter [facility] [address] [place] [address] Discharge Disposition: Discharge to home or self care Social History Tobacco Use Types Packs/Day Years Used Date Smoking Tobacco: Never Smokeless Tobacco: Never Alcohol Use Standard Drinks/Week Comments Yes 0 (1 standard drink = 0.6 oz pur e alcohol) Comments Unknown Sex and Gender Information Value Date Recorded Sex Assigned at Not on file Legal Sex Female 4:26 PM VP DATA Gender Identity Female 03/21/2021 10:44 PM CDT [...] Associated Diagnosis Comments BREAST IMAGING OUTSIDE REFERENCE Routine 12/18/2017 8:49 AM CDT documented in this encounter Results * Breast Imaging Outside Reference (12/18/2017 8:49 AM CDT) Impressions RAD_PACS_[facility] - 12/18/2017 8:49 AM CDT These images are for Reference purposes only and have not been reviewed by [facility]. ??There will be no report generated by a [facility] Radiologist. Narrative RAD_PACS_[facility] - 12/18/2017 8:49 AM CDT EXAMINATION: ??Images For Reference Purposes Only us Argelia Hussein MD IMG MAMMO PROCEDURES Fi nal Result RAD_PACS_[facility] documented in this encounter Visit Diagnoses Not on filedocumented in this encounter Care Teams Beam Saw Operator Relationship Specialty Start Date End Date Richard Sosa MD PCP - General 09/11/16 documented as of this encounter
--- OUTSIDE RECORDS SUMMARY | 2024-06-25 14:28 | XMS_ITS | Encounter Summary ---
Author Organization [facility] Address [address] [place] [address] Phone Care Team Providers Care Liquid Flavor Compounder Name Role Phone Richard Sosa MD Primary Care Provider [phone] Encounter Details Date Type Department Care Team (Late st Contact Info) Description 09/11/2016 Orders Only [facility] [place], [place] Argelia Hussein MD [address] [address] Social History Tobacco Use Types Packs/Day Years Used Date Smoking Tobacco: Never Assessed Alcohol Use Standard Drinks/Week Comments Yes 0 (1 standard drink = 0.6 oz pur e alcohol) Comments Unknown Sex and Gender Information Value Date Recorded Sex Assigned at Not on file 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 [place] [address] SURGICAL PATHOLOGY REPORT * Consult Report * FINAL Patient Name: TERREI MARSHALL Address: [address] [place] [address] Patient Type: [place], [place] ??[address] Location: PVTOP Taken: 09/11/2016 Gender: ??F Received: 09/30/2016 : 1960 (Age: 56) Hospital #: [id number] Accessioned: 09/30/2016 ? Reported: 10/01/2016 Physician(s): ??Argelia Hussein M.D. [address] [address] Fx: [phone] Diagnosis: Consult Materials Received from [place], [place] (OSC [id number]- 0888; 09/11/2016) Breast, right, ultrasound-guided biopsy ? 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 - Histologic grade= 3/3 (tub 3 + nuc 3 + kristin 2= 8/9) by ESBR criteria ? - Minimal linear dimension=11 mm ? - Biomarker studies (per written report, slides not available for review) ?- Estrogen receptor: negative (0%) ?- Progesterone receptor: negative (0%) ?- Her-2 by IHC: negative (1+) ?- Ki-67 proliferation index: 48% (high) ? - See comment Consult Materials Received from [place], [place] (OSC [id number]; 09/11/2016) Soft tissue, right axilla, needle aspiration ? - Metastatic carcinoma wgo/10/01/2016 11:10 ??By this signature, I attest that the above diagnosis is based upon my personal examination of the slides(and/or other material indicated in the diagnosis). ?? Zuleima Vieira M.D.,Ph.D. ??Report Electronically Reviewed and Signed Out By Zuleima Vieira M.D.,Ph.D. Microscopic Description and Comment: Immunohistochemical stains performed at the outside institution are available for review. ??The tumor cells are negative for estrogen receptor and progesterone receptor. ??The tumor cells are immunoreactive for GATA3 and GCDFP. In areas of squamous differentiation, the tumor cells are strongly and diffusely positive for cytokeratin-7 and p 63 supporting the diagnosis of invasive ductal carcinoma with metaplastic features. ? Elvira Cabral M.D. ? History: The patient is a 56 year old woman with superior lateral right breast mass. Materials Received: Received for review are eight slides labeled [id number] and one slided labeled [id number], accompanied by a corresponding pathology report. ??The material originates from [facility] ??[place], [place]. ?? Selected slide(s) may be digitally scanned for our files, and all materials are returned to the referring institution, along with a copy of our final report. Any testing required for diagnostic purposes was performed in the Department of Pathology and Immunology at [facility], [address] [place] [address] CLIA # [id number] The performance characteristics of the testing cited in this report (if any) were determined by the [facility],aspart of an ongoing manufacturing quality manager programandin compliance with federally mandated regulations drawn from the Clinical Laboratory Improvement Act of 1988 (CLIA '88). Some of these tests rely on the use of analyte specific reagents (ASR)and are subject to specific labeling requirements by the US Food and Drug Administration. Such diagnostic tests may only be performed in a facility that is certified by the Department of Healthand Human Servicesas a high complexity laboratory under CLIA '88. The FDA has determined that such clearance or approval is not necessary. ASRs should not be regarded as investigational or for research. ASRs were developed and the performance characteristics determined by the[facility]. It has not been cleared or approved by the U.S. Food and Drug Administration. Argelia Hussein MD LAB PATHOLOGY ORDERABLE S Final Result [facility] [address] [place] [address], [facility] documented in this encounter Visit Diagnoses Not on filedocumented in this encounter Care Teams Liquid Flavor Compounder Relationship Specialty Start Date End Date Richard Sosa MD PCP - General 09/11/16 documented as of this encounter
--- OUTSIDE RECORDS SUMMARY | 2024-06-25 14:28 | XMS_ITS | Encounter Summary ---
Author Organization [facility] Healthcare Address [address] [place] [address] Care Team Providers Care Packing Machine Can Feeder Name Role Phone Richard Sosa MD Primary Care Provider [phone] Encounter Details Date Type Department Care Team (Latest Contact Info) Description 09/29/2016 12:42 PM CDT - 09/29/2016 5:15 PM CDT Hospital Encounter [facility] OP INTERIM [phone] Eva Hussein MD [address] [address] Discharge Disposition: Discharge to home or self care Social History Tobacco Use Types Packs/Day Years Used Date Smoking Tobacco: Never Alcohol Use Standard Drinks/Week Comments Yes 0 (1 standard drink = 0.6 oz pur e alcohol) Comments Unknown Sex and Gender Information Value Date Recorded Sex Assigned at Not on file 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 Date: 09/29/2016 Surgeon: EVA HUSSEIN M.D. Admit Date: 09/29/2016 Disch. Date: 09/29/2016 Patient Type: SDS OPERATIVE REPORT SURGEON Eva Hussein MD FIRST PUPPY TRAINER Glendy Clark. ANESTHESIA Monitored anesthesia care with local anesthetic. PREOPERATIVE DIAGNOSIS Right breast cancer. POSTOPERATIVE DIAGNOSIS Right breast cancer. PROCEDURE 1. Insertion of left subclavian vein Yojd-Y-Ckcwbsut. 2. Right breast needle core biopsy. INDICATION FOR PROCEDURE Ms. Marshall is a 56-year-old woman who was found to have a right breast cancer in the upper outer quadrant. Because of the biology of the tumor, we did recommend neoadjuvant chemotherapy prior to any definitive surgical treatment. She enrolled in a clinical trial that requires additional core specimens. Therefore she presents today to have a left venous Port-A- Catheter placed for her chemotherapy administration and for the core biopsies for the study. FINDINGS The patient had a left venous Brod-Q-Lizrxaui placed and intraoperative fluoroscopy confirmed proper position. Five right breast core biopsies were taken from the tumor and submitted to the study nurse in the room. STEPS OF THE PROCEDURE Ms. Marshall was brought to the operating room and placed supine on the operating room table. Bilateral sequential compression devices were applied to both lower extremities and a single dose of Ancef 2 g was administered intravenously 20 minutes prior to the incision time. Sedation was then initiated with propofol and fentanyl and the patient was prepped and draped in the standard surgical fashion. Attention was first turned to placement of the Hfcb-U-Qcctqnke. The patient was placed in Trendelenburg position and the left infraclavicular area was infiltrated with a mixture of 1% plain lidocaine and 0.5% plain Marcaine to create a field block. A finder needle was then inserted and the left subclavian vein was entered on the first attempt with a finder needle. A wire was placed by Seldinger technique under fluoroscopy and confirmed in proper position. An incision was then made at the wire insertion site and carried down through the dermis with electrocautery. This was taken down onto the chest wall and a pocket was created for the Figa-Q-Rjvqerdb hub using blunt dissection. Two 2-0 Prolene stay sutures were placed to either side of the pocket and were affixed to the Esvw-C-Lsyjfnlt hub. The catheter was then marked to the atriocaval junction under fluoroscopy and clipped at that position. The dilator and pull-away sheath mechanism were placed over the wire by Seldinger technique under fluoroscopy. The dilator and wire were removed and the catheter was placed in the sheath which was then pulled away, leaving the catheter in the vein. Again, fluoroscopy confirmed proper position. Attention was then turned to the wound. Aggressive hemostasis was attained with electrocautery. The wound was irrigated with copious amounts of sterile saline. The deep dermal layer was then reapproximated with interrupted 3-0 Vicryl stitches. The skin was reapproximated with a running subcuticular using 4-0 Monocryl. Surgical glue dressing was applied. We then accessed the Dtzw-Z-Zbomecha hub with a straight White needle and it aspirated and flushed easily. It was instilled with concentrated heparin at 100 units/mL and the needle was withdrawn. We then directed our attention to the right breast. The mass was identified in the upper outer quadrant. An area just medial to it was infiltrated with a mixture of 1% plain lidocaine and 0.5% plain Marcaine to create a field block. A small luna was then made in the skin with a #15 scalpel. The Bard 14-gauge spring loaded device was then inserted and 5 separate core biopsies were taken. These were submitted to the study nurse in the room. The device was withdrawn and gentle pressure was held for hemostasis. Surgical blue dressing and Steri-Strips were applied. The patient tolerated these procedures well, was awakened and transferred to the recovery room. SPECIMENS REMOVED Included the right breast core biopsies which were submitted to the study nurse in the room. ESTIMATED BLOOD LOSS Minimal. IV FLUIDS 900 mL of crystalloid. COUNTS Sponge, instrument and needle counts were correct at the end of the procedure. CONDITION OF PATIENT ON DISCHARGE FROM THE OPERATING ROOM Stable. Please note that I, Dr. Eva Hussein, was present and scrubbed for the entire procedure from the time of skin incision through the time of skin closure. Electronically Authenticated by: Eva Hussein MD On 10/01/2016 07:14 AM CDT EVA HUSSEIN M.D. MEREDITH/elizabeth TD: 09/29/2016 21:36 documented in this encounter Plan of Treatment Not on file documented as of this encounter Procedures Procedure Name Priority Date/Time Associated Diagnosis Comments XR CHEST 1 VIEW Routine 09/29/2016 9:52 PM CDT documented in this encounter Results * XR Chest 1 Vw (09/29/2016 9:52 PM CDT) Anatomical Region Laterality Modality Body, Chest N/A Radiographic Catherine ging 09/29/2016 9:52 PM CDT Narrative 09/29/2016 9:52 PM CDT CARLOS VIZCAINO M.D. FINAL REPORT ACC# ??Date Time ??Exam [id number] Sep 29, 2016 16:52:00 [id number] Chest 1 view Frontal EXAMINATION: ?? Portable frontal chest radiograph HISTORY: 56-year-old woman with a history of breast cancer status post operative port placement IMPRESSION: ?? Comparison is made to chest x-ray 08/08/2005. There has been interval placement of a left subclavian port, which terminates at the level of the inferior SVC. There is no definite pneumothorax. Heart and mediastinum are unremarkable. ??Lungs and pleural reflections are clear . Findings were communicated to Judith Bernard, who will relay to Dr. Hussein, at 5:05 pm on 09/29/2016. Requested By: EVA HUSSEIN M.D. Dictated By: ?? CARLOS VIZCAINO M.D. ??on Sep ??2016 ??5:06P This document has been electronically signed by: CARLOS VIZCAINO M.D. on Sep ??2016 ??5:06P [id number] Procedure Note Miscellaneous, Notinfile / Provider, MD Destin - 11/20/2016 CARLOS VIZCAINO M.D. FINAL REPORT ACC# Date Time Exam [id number] Sep 29, 2016 16:52:00 [id number] Chest 1 view Frontal EXAMINATION: Portable frontal chest radiograph HISTORY: 56-year-old woman with a history of breast cancer status post operative port placement IMPRESSION: Comparison is made to chest x-ray 08/08/2005. There has been interval placement of a left subclavian port, which terminates at the level of the inferior SVC. There is no definite pneumothorax. Heart and mediastinum are unremarkable. Lungs and pleural reflections are clear . Findings were communicated to Judith Bernard, who will relay to Dr. Hussein, at 5:05 pm on 09/29/2016. Requested By: EVA HUSSEIN M.D. Dictated By: CARLOS VIZCAINO M.D. on Sep 29 2016 5:06P This document has been electronically signed by: CARLOS VIZCAINO M.D. on Sep 29 2016 5:06P [id number] us Not In File Miscellaneous IMG XR PROCEDURES Mariah l Result documented in this encounter Visit Diagnoses Not on filedocumented in this encounter Care Teams Packing Machine Can Feeder Relationship Specialty Start Date End Date Richard Sosa MD PCP - General 09/11/16 documented as of this encounter
--- OUTSIDE RECORDS SUMMARY | 2024-06-25 14:28 | XMS_ITS | Encounter Summary ---
Author Organization [facility] Healthcare Address [address] [place] [address] Care Team Providers Care Business Architect Name Role Phone Richard Sosa MD Primary Care Provider [phone] Encounter Details Date Type Department Care Team (Late st Contact Info) Description 09/11/2016 1:02 PM CDT - 09/11/2016 11:59 PM CDT Hospital Encounter [facility] OP INTERIM Richard Sosa MD [address] [place] [address] Мария Zhang PA [address] [place], [place] [id number] Discharge Disposition: Discharge to home or self care Social History Tobacco Use Types Packs/Day Years Used Date Smoking Tobacco: Never Assessed Alcohol Use Standard Drinks/Week Comments Yes 0 (1 standard drink = 0.6 oz pur e alcohol) Comments Unknown Sex and Gender Information Value Date Recorded Sex Assigned at Not on file 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
--- OUTSIDE RECORDS SUMMARY | 2024-06-25 14:28 | XMS_ITS | Encounter Summary ---
Author Organization [facility] Healthcare Address [address] [place] [address] Care Team Providers Care Rippler Name Role Phone Richard Sosa MD Primary Care Provider [phone] Encounter Details Date Type Department Care Team (Latest Contact Info) Description 01/13/2017 1:27 PM CDT - 01/13/2017 11:59 PM CDT Hospital Encounter [facility] [phone] Eva Hussein MD [address] [address] Discharge Disposition: Discharge to home or self care Social History Tobacco Use Types Packs/Day Years Used Date Smoking Tobacco: Never Alcohol Use Standard Drinks/Week Comments Yes 0 (1 standard drink = 0.6 oz pur e alcohol) Comments Unknown Sex and Gender Information Value Date Recorded Sex Assigned at Not on file Legal Sex Female 4:26 PM [employer] Gender Identity Female 03/21/2021 10:44 PM CDT [...] Name Priority Date/Time Associated Diagnosis Comments BREAST SONOGRAPHY Routine 01/13/2017 7:5 0 PM CDT SCREENING MAMMOGRAM Routine 01/13/2017 6 :53 PM CDT documented in this encounter Results * BREAST SONOGRAPHY (01/13/2017 7:50 PM CDT) Anatomical Region Laterality Modality Ultrasound 01/13/2017 7:50 PM CDT Narrative 01/13/2017 7:50 PM CDT BUZZ REED M.D. GURINDER KELLEY M.D. FINAL REPORT The radiology attending physician has personally reviewed this study, and has reviewed and/or edited this written report and agrees with it. ACC# ??Date Time ??Exam [id number] Jan 13, 2017 13:53:00 [facility] [id number] Diag Mamm, inc CAD, unilat R ?? Technologist(s): Heather Bruce; ; [id number] Jan 13, 2017 14:50:00 [facility] [id number] Breast US unilateral, ltd R ACC# ??Date Time ??Exam [id number] Jan 13, 2017 13:53:00 [facility] [id number] Diag Mamm, inc CAD, unilat R ?? Technologist(s): Heather Bruce; ; [id number] Jan 13, 2017 14:50:00 [facility] [id number] Breast US unilateral, ltd R EXAMINATION: ?? 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 TECHNIQUE: ??Full field digital craniocaudal and mediolateral oblique views of the breast(s) were obtained. ??Computer Aided Detection was performed. COMPARISON: 09/11/2016, 08/29/2016, 01/21/2013 BREAST PARENCHYMAL COMPOSITION: There are scattered areas of fibroglandular density. FINDINGS: MAMMOGRAM FINDINGS: The known biopsy-proven malignancy at the upper outer quadrant of the right breast 9 cm from the nipple has contracted into an irregular, hyperdense mass with spiculated margins. It measures 14 x 7 x 8 mm. The tissue marker clip placed at biopsy and documented on the postbiopsy mammogram is no longer present. A few amorphous microcalcifications are associated with the mass. An additional 3 mm group of amorphous microcalcifications in the upper outer right breast is located 2.5 cm anterior to the anterior margin of the lesion and 3.5 cm anterior to the center of the lesion, which are new from 2013. These are viewed with some suspicion. SONOGRAM FINDINGS: Targeted sonogram of the upper outer quadrant of the right breast and the right axilla was performed. There is a 11 x 9 x 7 mm irregular hypoechoic mass with indistinct and angular margins, anti- parallel orientation and detectable internal vascularity at the 11:00 position of the right breast, 7 cm from the nipple. The mass previously measured 18 mm in maximum dimension on outside sonogram dated 09/11/2016. The previously seen central cystic component within the mass has resolved. There is decrease in eccentric cortical thickening in a right axillary lymph node containing a tissue marker clip. The cortical thickness of this lymph node measures 4 mm. ?? IMPRESSION: 1) Decrease in the size of known biopsy-proven RIGHT breast malignancy. Interval disappearance of the tissue marker placed in the mass at the time of biopsy. 2) 3 mm group of calcifications 2-3 cm central to the index mass (which also contains some calcifications). ??Recommend 2 wire bracket needle localization to include these calcifications at the time of surgical excision. 3) Decrease in size of the metastatic right axillary lymph node. ??This lymph node contains a tissue marker. The lymph node is not included on the patient's mammogram. OVERALL FINAL ASSESSMENT: BI-RADS Category 6: Known biopsy-proven malignancy. RECOMMENDATION: Management of the patient's right breast malignancy per the referring breast surgeon Dr. Hussein. ?? Requested By: Eva Hussein ??Meri ? Dictated By: ?? GURINDER KELLEY M.D. ??on Jan 13 2017 ??3:39P This document has been electronically signed by: BUZZ REED M.D. on Jan 13 2017 ??6:04P [id number] ARCHIBALD M.D. FINAL REPORT The radiology attending physician has personally reviewed this study, and has reviewed and/or edited this written report and agrees with it. Attending: ??KEENAN ??EVA Requesting: ??Keenan, ??Eva Requesting Fax: ?? Attending Fax: ?? Attending ID: ??[id number] Requesting ID: ??[id number] Report To 1 ID: ??[id number] ? Report To 1 Name: ??, ?? Report To 1 FAX: ?? NextGen Order #: ?? Procedure Note Miscellaneous, Not In File - 04/20/2017 BUZZ REED M.D. GURINDER KELLEY M.D. FINAL REPORT The radiology attending physician has personally reviewed this study, and has reviewed and/or edited this written report and agrees with it. 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 TECHNIQUE: Full field digital craniocaudal and mediolateral oblique views of the breast(s) were obtained. Computer Aided Detection was performed. COMPARISON: 09/11/2016, 08/29/2016, 01/21/2013 BREAST PARENCHYMAL COMPOSITION: There are scattered areas of fibroglandular density. FINDINGS: MAMMOGRAM FINDINGS: The known biopsy-proven malignancy at the upper outer quadrant of the right breast 9 cm from the nipple has contracted into an irregular, hyperdense mass with spiculated margins. It measures 14 x 7 x 8 mm. The tissue marker clip placed at biopsy and documented on the postbiopsy mammogram is no longer present. A few amorphous microcalcifications are associated with the mass. An additional 3 mm group of amorphous microcalcifications in the upper outer right breast is located 2.5 cm anterior to the anterior margin of the lesion and 3.5 cm anterior to the center of the lesion, which are new from 2013. These are viewed with some suspicion. SONOGRAM FINDINGS: Targeted sonogram of the upper outer quadrant of the right breast and the right axilla was performed. There is a 11 x 9 x 7 mm irregular hypoechoic mass with indistinct and angular margins, anti- parallel orientation and detectable internal vascularity at the 11:00 position of the right breast, 7 cm from the nipple. The mass previously measured 18 mm in maximum dimension on outside sonogram dated 09/11/2016. The previously seen central cystic component within the mass has resolved. There is decrease in eccentric cortical thickening in a right axillary lymph node containing a tissue marker clip. The cortical thickness of this lymph node measures 4 mm. IMPRESSION: 1) Decrease in the size of known biopsy-proven RIGHT breast malignancy. Interval disappearance of the tissue marker placed in the mass at the time of biopsy. 2) 3 mm group of calcifications 2-3 cm central to the index mass (which also contains some calcifications). Recommend 2 wire bracket needle localization to include these calcifications at the time of surgical excision. 3) Decrease in size of the metastatic right axillary lymph node. This lymph node contains a tissue marker. The lymph node is not included on the patient's mammogram. OVERALL FINAL ASSESSMENT: BI-RADS Category 6: Known biopsy-proven malignancy. RECOMMENDATION: Management of the patient's right breast malignancy per the referring breast surgeon Dr. Hussein. Requested By: Eva Hussein M.D. Dictated By: GURINDER KELLEY M.D. on Jan 13 2017 3:39P This document has been electronically signed by: BUZZ REED M.D. on Jan 13 2017 6:04P [id number] ARCHIBALD M.D. FINAL REPORT The radiology attending physician has personally reviewed this study, and has reviewed and/or edited this written report and agrees with it. Attending: EVA HUSSEIN Requesting: Eva Hussein Requesting Fax: Attending Fax: Attending ID: [id number] Requesting ID: [id number] Report To 1 ID: [id number] Report To 1 Name: , Report To 1 FAX: NextGen Order #: Eva Hussein MD [facility] US PROCEDURES Edite d Result - Final * Screening Mammogram (01/13/2017 6:53 PM CDT) Anatomical Region Laterality Modality Breast N/A Mammography 01/13/2017 6:53 PM CDT Narrative 01/13/2017 6:53 PM CDT Meri WATTERS M.D. FINAL REPORT The radiology attending physician has personally reviewed this study, and has reviewed and/or edited this written report and agrees with it. ACC# ??Date Time ??Exam [id number] Jan 13, 2017 13:53:00 [facility] [address] Diag Mamm, inc CAD, unilat R ?? Technologist(s): Heather Bruce; ; [id number] Jan 13, 2017 14:50:00 [facility] [id number] Breast US unilateral, ltd R ACC# ??Date Time ??Exam [id number] Jan 13, 2017 13:53:00 [facility] [address] Diag Mamm, inc CAD, unilat R ?? Technologist(s): Heather Bruce; ; [id number] Jan 13, 2017 14:50:00 [facility] 99819 Breast US unilateral, ltd R EXAMINATION: ?? 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 TECHNIQUE: ??Full field digital craniocaudal and mediolateral oblique views of the breast(s) were obtained. ??Computer Aided Detection was performed. COMPARISON: 09/11/2016, 08/29/2016, 01/21/2013 BREAST PARENCHYMAL COMPOSITION: There are scattered areas of fibroglandular density. FINDINGS: MAMMOGRAM FINDINGS: The known biopsy-proven malignancy at the upper outer quadrant of the right breast 9 cm from the nipple has contracted into an irregular, hyperdense mass with spiculated margins. It measures 14 x 7 x 8 mm. The tissue marker clip placed at biopsy and documented on the postbiopsy mammogram is no longer present. A few amorphous microcalcifications are associated with the mass. An additional 3 mm group of amorphous microcalcifications in the upper outer right breast is located 2.5 cm anterior to the anterior margin of the lesion and 3.5 cm anterior to the center of the lesion, which are new from 2013. These are viewed with some suspicion. SONOGRAM FINDINGS: Targeted sonogram of the upper outer quadrant of the right breast and the right axilla was performed. There is a 11 x 9 x 7 mm irregular hypoechoic mass with indistinct and angular margins, anti- parallel orientation and detectable internal vascularity at the 11:00 position of the right breast, 7 cm from the nipple. The mass previously measured 18 mm in maximum dimension on outside sonogram dated 09/11/2016. The previously seen central cystic component within the mass has resolved. There is decrease in eccentric cortical thickening in a right axillary lymph node containing a tissue marker clip. The cortical thickness of this lymph node measures 4 mm. ?? IMPRESSION: 1) Decrease in the size of known biopsy-proven RIGHT breast malignancy. Interval disappearance of the tissue marker placed in the mass at the time of biopsy. 2) 3 mm group of calcifications 2-3 cm central to the index mass (which also contains some calcifications). ??Recommend 2 wire bracket needle localization to include these calcifications at the time of surgical excision. 3) Decrease in size of the metastatic right axillary lymph node. ??This lymph node contains a tissue marker. The lymph node is not included on the patient's mammogram. OVERALL FINAL ASSESSMENT: BI-RADS Category 6: Known biopsy-proven malignancy. RECOMMENDATION: Management of the patient's right breast malignancy per the referring breast surgeon Dr. Hussein. ?? Requested By: Eva Hussein ??Meri ? Dictated By: ?? GURINDER KELLEY M.D. ??on Jan 13 2017 ??3:39P This document has been electronically signed by: BUZZ REED M.D. on Jan 13 2017 ??6:04P [id number] YOUNG, M.D. GURINDER WARREN, M.D. FINAL REPORT The radiology attending physician has personally reviewed this study, and has reviewed and/or edited this written report and agrees with it. Attending: ??KEENAN, ??EVA Requesting: ??Keenan, ??Eva Requesting Fax: ?? Attending Fax: ?? Attending ID: ??[id number] Requesting ID: ??[id number] Report To 1 ID: ??[id number] ? Report To 1 Name: ??, ?? Report To 1 FAX: ?? NextGen Order #: ?? Procedure Note Miscellaneous, Not In File - 04/20/2017 BUZZ REED M.D. GURINDER KELLEY M.D. FINAL REPORT The radiology attending physician has personally reviewed this study, and has reviewed and/or edited this written report and agrees with it. 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 TECHNIQUE: Full field digital craniocaudal and mediolateral oblique views of the breast(s) were obtained. Computer Aided Detection was performed. COMPARISON: 09/11/2016, 08/29/2016, 01/21/2013 BREAST PARENCHYMAL COMPOSITION: There are scattered areas of fibroglandular density. FINDINGS: MAMMOGRAM FINDINGS: The known biopsy-proven malignancy at the upper outer quadrant of the right breast 9 cm from the nipple has contracted into an irregular, hyperdense mass with spiculated margins. It measures 14 x 7 x 8 mm. The tissue marker clip placed at biopsy and documented on the postbiopsy mammogram is no longer present. A few amorphous microcalcifications are associated with the mass. An additional 3 mm group of amorphous microcalcifications in the upper outer right breast is located 2.5 cm anterior to the anterior margin of the lesion and 3.5 cm anterior to the center of the lesion, which are new from 2013. These are viewed with some suspicion. SONOGRAM FINDINGS: Targeted sonogram of the upper outer quadrant of the right breast and the right axilla was performed. There is a 11 x 9 x 7 mm irregular hypoechoic mass with indistinct and angular margins, anti- parallel orientation and detectable internal vascularity at the 11:00 position of the right breast, 7 cm from the nipple. The mass previously measured 18 mm in maximum dimension on outside sonogram dated 09/11/2016. The previously seen central cystic component within the mass has resolved. There is decrease in eccentric cortical thickening in a right axillary lymph node containing a tissue marker clip. The cortical thickness of this lymph node measures 4 mm. IMPRESSION: 1) Decrease in the size of known biopsy-proven RIGHT breast malignancy. Interval disappearance of the tissue marker placed in the mass at the time of biopsy. 2) 3 mm group of calcifications 2-3 cm central to the index mass (which also contains some calcifications). Recommend 2 wire bracket needle localization to include these calcifications at the time of surgical excision. 3) Decrease in size of the metastatic right axillary lymph node. This lymph node contains a tissue marker. The lymph node is not included on the patient's mammogram. OVERALL FINAL ASSESSMENT: BI-RADS Category 6: Known biopsy-proven malignancy. RECOMMENDATION: Management of the patient's right breast malignancy per the referring breast surgeon Dr. Hussein. Requested By: Eva Hussein M.D. Dictated By: GURINDER KELLEY M.D. on Jan 13 2017 3:39P This document has been electronically signed by: BUZZ REED M.D. on Jan 13 2017 6:04P [id number] WATTERS M.D. FINAL REPORT The radiology attending physician has personally reviewed this study, and has reviewed and/or edited this written report and agrees with it. Attending: EVA HUSSEIN Requesting: Eva Hussein Requesting Fax: Attending Fax: Attending ID: [id number] Requesting ID: [id number] Report To 1 ID: [id number] Report To 1 Name: , Report To 1 FAX: NextGen Order #: [id number] Eva Hussein MD IMG MAMMO PROCEDURES Ed ited Result - Final documented in this encounter Visit Diagnoses Not on filedocumented in this encounter Care Teams Rippler Relationship Specialty Start Date End Date Richard Sosa MD PCP - General 09/11/16 documented as of this encounter
--- OUTSIDE RECORDS SUMMARY | 2024-06-25 14:28 | XMS_ITS | Encounter Summary ---
Author Organization [facility] Healthcare Address [address] [place] [address] Care Team Providers Care Excel Analyst Name Role Phone Richard Sosa MD Primary Care Provider [phone] Encounter Details Date Type Department Care Team (Latest Contact Info) Description 09/23/2016 8:24 AM CDT - 09/23/2016 11:59 PM CDT Hospital Encounter [facility] INTERIM [phone] Eva Hussein MD [address] [address] Discharge Disposition: Discharge to home or self care Social History Tobacco Use Types Packs/Day Years Used Date Smoking Tobacco: Never Alcohol Use Standard Drinks/Week Comments Yes 0 (1 standard drink = 0.6 oz pur e alcohol) Comments Unknown Sex and Gender Information Value Date Recorded Sex Assigned at Not on file 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 Gender Identity Female 03/21/2021 10:44 PM CDT Sexual Orientation Not on file documented as of this encounter Discharge Disposition Disposition Code Departure Means Destination Discharge to home or self care documented in this encounter Plan of Treatment Not on file documented as of this encounter Procedures Procedure Name Priority Date/Time Associated Diagnosis Comments BIOPSY LYMPH NODE SUPERFICIAL Routine 09/23/2016 7:57 PM CDT BREAST SOFT TISSUE MARKER PLACEMENT EACH ADDITIONAL Routine 09/23/2016 7:57 PM CDT US BREAST LIMITED Routine 09/23/2016 2:4 3 PM CDT SURGICAL PATHOLOGY Routine 09/23/2016 1: 45 PM CDT XR CONSULT OF OUTSIDE FILMS (PEDS ONLY) Routine 09/23/2016 12:49 PM CDT documented in this encounter Results * Biopsy Lymph Node (09/23/2016 7:57 PM CDT) Anatomical Region Laterality Modality Body N/A X-Ray Angiograph y 09/23/2016 7:57 PM CDT Narrative 09/23/2016 7:57 PM CDT ANATOLY CABRERA M.D. FINAL REPORT The radiology attending physician has personally reviewed this study, and has reviewed and/or edited this written report and agrees with it. ACC# ??Date Time ??Exam [id number] Sep 23, 2016 14:57:00 [facility] [address] SoftTissue Marker Plor 1st [id number] Sep 23, 2016 14:57:00 [facility] 62339 Bx Lymph Nd Sprficial R ACC# ??Date Time ??Exam [id number] Sep 23, 2016 14:57:00 [facility] [address]12 SoftTissue Marker Plmt 1st [id number] Sep 23, 2016 14:57:00 [facility] 35646 Bx Lymph Nd Sprficial R EXAMINATION: ?? 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 Ultrasound-guided core needle biopsy is requested to evaluate for malignancy. PROCEDURE AND FINDINGS: The risks and potential benefits of the procedure were discussed with the patient and written informed consent was obtained. After sterile preparation of the skin, 1% lidocaine was utilized for local anesthesia. ??A small skin incision was made with a #11 scalpel blade. ??An 18-gauge spring-loaded biopsy device needle was then advanced through the skin incision to the edge of the lesion of interest from an inferior approach utilizing sonographic guidance. A total of 2 tissue cores were obtained through the lesion. An UltraClip ribbon-shaped tissue marker clip was then placed at the biopsy site. Clip position was confirmed on orthogonal ultrasound projections. Hemostasis was achieved. A sterile bandage and an ice pack were applied. The patient tolerated the procedure well and there was no evidence of immediate complication. The patient was given verbal as well as written post procedural instructions prior to release from the department. ??The tissue cores were submitted to surgical pathology in formalin for histologic analysis. The attending radiologist, Dr. Cabrera, was present throughout the entire procedure. Dr. Mcgee (diagnostic vice president of talent management) and Dr. Gonzalez (diagnostic vice president of talent management) also participated in this examination. ?? IMPRESSION: ?Successful ultrasound-guided core needle biopsy of the area of interest in the right axilla. ??Pathology pending. ?? ADDENDUM #1 by Deja Ledezma RN for Dr. Anatoly Cabrera on 09/26/16 at 2:40 p.m.: Histopathology from the core needle biopsy above demonstrated carcinoma, consistent with breast primary. ??This is a malignant finding and surgical intervention is required. ??The patient was notified of the biopsy results and recommendations by the referring physician, Dr. Eva Hussein, who will plan surgical management. Requested By: Eva Hussein ??M.DJamal Dictated By: ?? LIBAN GONZALEZ M.D. ??on Sep 23 2016 ??3:05P This document has been electronically signed by: ANATOLY CABRERA M.D. on Sep 23 2016 ??3:17P on Sep 26 2016 ??2:41P This Addendum has been electronically signed by: ANATOLY CABRERA M.D. on Sep ??3 2016 12:23P Procedure Note Miscellaneous, Notinfile - 11/19/2016 ANAOTLY CABRERA M.D. FINAL REPORT The radiology attending physician has personally reviewed this study, and has reviewed and/or edited this written report and agrees with it. 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 Ultrasound-guided core needle biopsy is requested to evaluate for malignancy. PROCEDURE AND FINDINGS: The risks and potential benefits of the procedure were discussed with the patient and written informed consent was obtained. After sterile preparation of the skin, 1% lidocaine was utilized for local anesthesia. A small skin incision was made with a #11 scalpel blade. An 18-gauge spring-loaded biopsy device needle was then advanced through the skin incision to the edge of the lesion of interest from an inferior approach utilizing sonographic guidance. A total of 2 tissue cores were obtained through the lesion. An UltraClip ribbon-shaped tissue marker clip was then placed at the biopsy site. Clip position was confirmed on orthogonal ultrasound projections. Hemostasis was achieved. A sterile bandage and an ice pack were applied. The patient tolerated the procedure well and there was no evidence of immediate complication. The patient was given verbal as well as written post procedural instructions prior to release from the department. The tissue cores were submitted to surgical pathology in formalin for histologic analysis. The attending radiologist, Dr. Cabrera, was present throughout the entire procedure. Dr. Mcgee (diagnostic vice president of talent management) and Dr. Gonzalez (diagnostic vice president of talent management) also participated in this examination. IMPRESSION: Successful ultrasound-guided core needle biopsy of the area of interest in the right axilla. Pathology pending. ADDENDUM #1 by Deja Ledezma RN for Dr. Anatoly Cabrera on 09/26/16 at 2:40 p.m.: Histopathology from the core needle biopsy above demonstrated carcinoma, consistent with breast primary. This is a malignant finding and surgical intervention is required. The patient was notified of the biopsy results and recommendations by the referring physician, Dr. Eva Hussein, who will plan surgical management. Requested By: Eva Hussein M.D. Dictated By: LIBAN GONZALEZ M.D. on Sep 23 2016 3:05P This document has been electronically signed by: ANATOLY CABRERA M.D. on Sep 23 2016 3:17P on Sep 26 2016 2:41P This Addendum has been electronically signed by: ANATOLY CABRERA M.D. on Sep 29 2016 12:23P us Not In File Miscellaneous IMG IR PROCEDURES Mariah l Result * Breast Soft Tissue Marker Placement Each Additional (09/23/2016 7:57 PM CDT) Anatomical Region Laterality Modality Breast N/A Ultrasound 09/23/2016 7:57 PM CDT Narrative 09/23/2016 7:57 PM CDT ANATOLY CABRERA M.D. FINAL REPORT The radiology attending physician has personally reviewed this study, and has reviewed and/or edited this written report and agrees with it. ACC# ??Date Time ??Exam [id number] Sep 23, 2016 14:57:00 [facility] [address] SoftTissue Marker Plmt 1st [id number] Sep 23, 2016 14:57:00 [facility] 78509 Bx Lymph Nd Sprficial R ACC# ??Date Time ??Exam [id number] Sep 23, 2016 14:57:00 [facility] [address]182 SoftTissue Marker Plmt 1st [id number] Sep 23, 2016 14:57:00 [facility] 51094 Bx Lymph Nd Sprficial R EXAMINATION: ?? 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 Ultrasound-guided core needle biopsy is requested to evaluate for malignancy. PROCEDURE AND FINDINGS: The risks and potential benefits of the procedure were discussed with the patient and written informed consent was obtained. After sterile preparation of the skin, 1% lidocaine was utilized for local anesthesia. ??A small skin incision was made with a #11 scalpel blade. ??An 18-gauge spring-loaded biopsy device needle was then advanced through the skin incision to the edge of the lesion of interest from an inferior approach utilizing sonographic guidance. A total of 2 tissue cores were obtained through the lesion. An UltraClip ribbon-shaped tissue marker clip was then placed at the biopsy site. Clip position was confirmed on orthogonal ultrasound projections. Hemostasis was achieved. A sterile bandage and an ice pack were applied. The patient tolerated the procedure well and there was no evidence of immediate complication. The patient was given verbal as well as written post procedural instructions prior to release from the department. ??The tissue cores were submitted to surgical pathology in formalin for histologic analysis. The attending radiologist, Dr. Cabrera, was present throughout the entire procedure. Dr. Mcgee (diagnostic vice president of talent management) and Dr. Gonzalez (diagnostic vice president of talent management) also participated in this examination. ?? IMPRESSION: ?Successful ultrasound-guided core needle biopsy of the area of interest in the right axilla. ??Pathology pending. ?? ADDENDUM #1 by Deja Ledezma RN for Dr. Anatoly Cabrera on 09/26/16 at 2:40 p.m.: Histopathology from the core needle biopsy above demonstrated carcinoma, consistent with breast primary. ??This is a malignant finding and surgical intervention is required. ??The patient was notified of the biopsy results and recommendations by the referring physician, Dr. Eva Hussein, who will plan surgical management. Requested By: Eva Hussein ??M.DJamal Dictated By: ?? LIBAN GONZALEZ M.D. ??on Sep 23 2016 ??3:05P This document has been electronically signed by: ANATOLY CABRERA M.D. on Sep 23 2016 ??3:17P on Sep 26 2016 ??2:41P This Addendum has been electronically signed by: ANATOLY CABRERA M.D. on Sep ??3 2016 12:23P Procedure Note Miscellaneous, Notinfile / Provider, MD Destin - 11/20/2016 ANATOLY CABRERA M.D. FINAL REPORT The radiology attending physician has personally reviewed this study, and has reviewed and/or edited this written report and agrees with it. 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 Ultrasound-guided core needle biopsy is requested to evaluate for malignancy. PROCEDURE AND FINDINGS: The risks and potential benefits of the procedure were discussed with the patient and written informed consent was obtained. After sterile preparation of the skin, 1% lidocaine was utilized for local anesthesia. A small skin incision was made with a #11 scalpel blade. An 18-gauge spring-loaded biopsy device needle was then advanced through the skin incision to the edge of the lesion of interest from an inferior approach utilizing sonographic guidance. A total of 2 tissue cores were obtained through the lesion. An UltraClip ribbon-shaped tissue marker clip was then placed at the biopsy site. Clip position was confirmed on orthogonal ultrasound projections. Hemostasis was achieved. A sterile bandage and an ice pack were applied. The patient tolerated the procedure well and there was no evidence of immediate complication. The patient was given verbal as well as written post procedural instructions prior to release from the department. The tissue cores were submitted to surgical pathology in formalin for histologic analysis. The attending radiologist, Dr. Cabrera, was present throughout the entire procedure. Dr. Mcgee (diagnostic vice president of talent management) and Dr. Gonzalez (diagnostic vice president of talent management) also participated in this examination. IMPRESSION: Successful ultrasound-guided core needle biopsy of the area of interest in the right axilla. Pathology pending. ADDENDUM #1 by Deja Ledezma RN for Dr. Anatoly Cabrera on 09/26/16 at 2:40 p.m.: Histopathology from the core needle biopsy above demonstrated carcinoma, consistent with breast primary. This is a malignant finding and surgical intervention is required. The patient was notified of the biopsy results and recommendations by the referring physician, Dr. Eva Hussein, who will plan surgical management. Requested By: Eva Hussein M.D. Dictated By: LIBAN GONZALEZ M.D. on Sep 23 2016 3:05P This document has been electronically signed by: ANATOLY CABRERA M.D. on Sep 23 2016 3:17P on Sep 26 2016 2:41P This Addendum has been electronically signed by: ANATOLY CABRERA M.D. on Sep 29 2016 12:23P us Not In File Miscellaneous IMG US PROCEDURES Mariah l Result * US Breast Limited (09/23/2016 2:43 PM CDT) Anatomical Region Laterality Modality Breast N/A Ultrasound 09/23/2016 2:43 PM CDT Narrative 09/23/2016 2:43 PM CDT GLENROY CAMARA M.D. JAISON JEREZ DO FINAL REPORT The radiology attending physician has personally reviewed this study, and has reviewed and/or edited this written report and agrees with it. ACC# ??Date Time ??Exam [id number] Sep 23, 2016 09:43:00 [facility] 15169 Axillary Breast Ultrasound R EXAMINATION: ?? RIGHT axillary SONOGRAM HISTORY: ??46-year-old woman with recent diagnosed right breast cancer, initially evaluated at an outside facility. Right axillary sonography is requested to evaluate for adenopathy. FINDINGS: Directed sonogram of the right axilla breast was performed. There is a dominant morphologically-abnormal axillary lymph node measuring 1.3 x 0.7 cm with a markedly thickened cortex and largely effaced fatty hilum. A few smaller adjacent lymph nodes have borderline cortical thickening (3 mm) with preserved fatty reza. IMPRESSION: ?? At least one morphologically-abnormal right axillary lymph node, suspicious for metastasis given the patient's known biopsy-proven right breast malignancy. This lymph node node is amenable to ultrasound guided tissue sampling, if clinically warranted. OVERALL FINAL ASSESSMENT: BI-RADS Category 6: Known biopsy-proven malignancy. Requested By: Eva Hussein ??Meri ? Dictated By: ?? JAISON JEREZ DO ??on Sep 23 2016 10:06A This document has been electronically signed by: GLENROY CAMARA M.D. on Sep 23 2016 11:40A [id number] Procedure Note Miscellaneous, Notinfile / Provider, MD Destin - 11/19/2016 GLENROY CAMARA M.D. JAISON JEREZ DO FINAL REPORT The radiology attending physician has personally reviewed this study, and has reviewed and/or edited this written report and agrees with it. ACC# Date Time Exam [id number] Sep 23, 2016 09:43:00 [facility] 33054 Axillary Breast Ultrasound R EXAMINATION: RIGHT axillary SONOGRAM HISTORY: 46-year-old woman with recent diagnosed right breast cancer, initially evaluated at an outside facility. Right axillary sonography is requested to evaluate for adenopathy. FINDINGS: Directed sonogram of the right axilla breast was performed. There is a dominant morphologically-abnormal axillary lymph node measuring 1.3 x 0.7 cm with a markedly thickened cortex and largely effaced fatty hilum. A few smaller adjacent lymph nodes have borderline cortical thickening (3 mm) with preserved fatty reza. IMPRESSION: At least one morphologically-abnormal right axillary lymph node, suspicious for metastasis given the patient's known biopsy-proven right breast malignancy. This lymph node node is amenable to ultrasound guided tissue sampling, if clinically warranted. OVERALL FINAL ASSESSMENT: BI-RADS Category 6: Known biopsy-proven malignancy. Requested By: Eva Hussein M.D. Dictated By: JAISON JEREZ DO on Sep 23 2016 10:06A This document has been electronically signed by: GLENROY CAMARA M.D. on Sep 23 2016 11:40A [id number] us Not In File Miscellaneous IMG US PROCEDURES Mariah l Result * Surgical pathology (09/23/2016 1:45 PM CDT) 09/23/2016 1:45 PM CDT 09/23/2016 5:34 PM CDT [facility] [place] LAB SYSTEM - 09/25/2016 3:46 PM CDT [facility] [place] [address] SURGICAL PATHOLOGY REPORT FINAL Patient Name: KIRSTEN MARSHALL ? Address: [address] ??Service: ??Radiology ??[place], [place] ??[id number] ??Location: ??[facility] Taken: 09/23/2016 Gender: F ?? Received: 09/23/2016 : 1960 (Age: 56) ??Hospital #: [id number] Accessioned: 09/24/2016 ?Patient Type: ??BJ Ancillary Reported: 09/25/2016 ? Physician(s): Meri Calvillo M.D. ? Diagnosis: Soft tissue, right, axillary lymph node , biopsy ? - Carcinoma, consistent with breast primary (see comment) kxb/09/25/2016 11:57 By this signature, I attest that the above diagnosis is based upon my personal examination of the slides(and/or other material indicated in the diagnosis). ?? Hector Escudero M.D. ??Report Electronically Reviewed and Signed Out By ??Hector Escudero M.D. 09/25/2016 15:46:06 Microscopic Description and Comment: Microscopic examination of the right axillary lymph node shows no definitive residual lymph node. ?Alicia Williamson MD ?History: The patient is a 56-year-old woman with recently diagnosed right breast cancer with enlarged axillary right lymph node. ??Clinical diagnosis: ??Met versus reactive. ??BIRADS score 4C. ??Operative procedure: ??Ultrasound-guided right axillary lymph node core biopsy. Specimen(s) Received: A: Right axllary lymph node Gross Description: The specimen is received in a formalin-filled container labeled with the patient's name Kirsten Marshall and right axilla. ??It contains two hernandez tissue cores measuring 1.1 x 0.1 cm and 1.3 x 0.1 cm. ??Labeled A1. ??Jar 0. mmtdd/09/24/2016 16:53 ?hSakira Bartlett, BS, CT (ASCP ? By this signature, I attest that the above diagnosis is based upon my personal examination of the slides(and/or other material). ?? Surgical Pathology report is available electronically in Clinical Desktop. The performance characteristics of some immunohistochemical stains, fluorescence in-situ hybridization tests and immunophenotyping by flow cytometry cited in this report (if any) were determined by the Surgical Pathology Department at [facility] as part of an ongoing director quality systems program and in compliance with federally mandated [...] determined by the Surgical Pathology Department of [facility]. ??It has not been cleared or approved by the U. S. Food and Drug Administration. Anatoly Cabrera MD LAB PATHOLOGY ORDERABLES Edited Result - Final [facility] [address] [place] [address], [facility] * XR Interpretation Of Outside Films (09/23/2016 12:49 PM CDT) Anatomical Region Laterality Modality N/A Radiographic Catherine ging 09/23/2016 12:4 9 PM CDT Narrative 09/23/2016 12:49 PM CDT GLENROY CAMARA M.D. AJISON JEREZ DO FINAL REPORT The radiology attending physician has personally reviewed this study, and has reviewed and/or edited this written report and agrees with it. ACC# ??Date Time ??Exam [id number] Sep 23, 2016 07:49:00 [facility] 24547C Consult Out Films (read) EXAMINATION: ?? READING OF OUTSIDE IMAGING EXAMINATION - BILATERAL DIGITAL SCREENING MAMMOGRAM (10 images) dated 08/29/[address] [facility] ([place], [place]) DATE OF INTERPRETATION: 09/23/2016 HISTORY: 56-year-old woman with recently-diagnosed right breast cancer initially evaluated at an outside facility. A screen-detected mass in the upper outer right breast with a reported sonographic correlate was biopsied under ultrasound guidance on 09/11/2016 to revealed poorly differentiated invasive carcinoma by outside pathology report. Interpretation of the patient's outside mammogram is requested by Dr. Eva Hussein, who is seeing the patient in [facility] today. COMPARISON: 01/21/2013 BREAST PARENCHYMAL COMPOSITION: There are scattered areas of fibroglandular density. FINDINGS: There is a 2 cm oval high-density mass in the posterior upper outer RIGHT breast with indistinct and partially obscured margins. Reportedly, this mass was subsequently biopsied to reveal malignancy. A post-biopsy mammogram from 09/11/2016 shows a tissue marker clip within the mass. There is no suspicious abnormality within the LEFT breast on mammogram. Bilateral retroglandular saline breast implants are noted. By report, the outside ultrasound from 09/02/2016 revealed a prominent RIGHT axillary lymph node. IMPRESSION: ?? 1) 2-cm mass and associated biopsy clip within the posterior upper outer RIGHT breast, compatible with known, biopsy-proven malignancy. 2) Prominent RIGHT axillary lymph node by outside ultrasound report. If clinically warranted, repeat axillary ultrasound can be performed to evaluate for adenopathy. 3) No suspicious abnormality of the LEFT breast. NOTE: The findings, conclusions and recommendations within this report do not replace the initial findings, conclusions and recommendations made at the facility where the study was performed based upon the imaging and clinical condition at that time. ??Review of the prior report and correlation with the clinical history are necessary. The provided images may or may not represent the morongo source data set and thus may contain changes which may lower the sensitivity in the second opinion interpretation. Requested By: EVA HUSSEIN ??Meri Dictated By: ?? JAISON JEREZ DO ??on Sep 23 2016 ??8:46A This document has been electronically signed by: GLENROY CAMARA M.D. on Sep 23 2016 11:37A Procedure Note Miscellaneous, Notinfile - 11/19/2016 GLENROY CAMARA M.D. JAISON JEREZ DO FINAL REPORT The radiology attending physician has personally reviewed this study, and has reviewed and/or edited this written report and agrees with it. ACC# Date Time Exam [id number] Sep 23, 2016 07:49:00 [facility] 47152I Consult Out Films (read) EXAMINATION: READING OF OUTSIDE IMAGING EXAMINATION - BILATERAL DIGITAL SCREENING MAMMOGRAM (10 images) dated 08/29/[address] [facility] ([place], [place]) DATE OF INTERPRETATION: 09/23/2016 HISTORY: 56-year-old woman with recently-diagnosed right breast cancer initially evaluated at an outside facility. A screen-detected mass in the upper outer right breast with a reported sonographic correlate was biopsied under ultrasound guidance on 09/11/2016 to revealed poorly differentiated invasive carcinoma by outside pathology report. Interpretation of the patient's outside mammogram is requested by Dr. Eva Hussein, who is seeing the patient in [facility] today. COMPARISON: 01/21/2013 BREAST PARENCHYMAL COMPOSITION: There are scattered areas of fibroglandular density. FINDINGS: There is a 2 cm oval high-density mass in the posterior upper outer RIGHT breast with indistinct and partially obscured margins. Reportedly, this mass was subsequently biopsied to reveal malignancy. A post-biopsy mammogram from 09/11/2016 shows a tissue marker clip within the mass. There is no suspicious abnormality within the LEFT breast on mammogram. Bilateral retroglandular saline breast implants are noted. By report, the outside ultrasound from 09/02/2016 revealed a prominent RIGHT axillary lymph node. IMPRESSION: 1) 2-cm mass and associated biopsy clip within the posterior upper outer RIGHT breast, compatible with known, biopsy-proven malignancy. 2) Prominent RIGHT axillary lymph node by outside ultrasound report. If clinically warranted, repeat axillary ultrasound can be performed to evaluate for adenopathy. 3) No suspicious abnormality of the LEFT breast. NOTE: The findings, conclusions and recommendations within this report do not replace the initial findings, conclusions and recommendations made at the facility where the study was performed based upon the imaging and clinical condition at that time. Review of the prior report and correlation with the clinical history are necessary. The provided images may or may not represent the morongo source data set and thus may contain changes which may lower the sensitivity in the second opinion interpretation. Requested By: EVA HUSSEIN M.D. Dictated By: JAISON JEREZ DO on Sep 23 2016 8:46A This document has been electronically signed by: GLENROY CAMARA M.D. on Sep 23 2016 11:37A us Not In File Miscellaneous IMG XR PROCEDURES Mariah l Result documented in this encounter Visit Diagnoses Not on filedocumented in this encounter Care Teams Excel Analyst Relationship Specialty Start Date End Date Richard Sosa MD PCP - General 09/11/16 documented as of this encounter
--- OUTSIDE RECORDS SUMMARY | 2024-06-25 14:28 | XMS_ITS | Encounter Summary ---
Author Organization [facility] Healthcare Address [address] [place] [address] Care Team Providers Care Preventative Maintenance Technician Name Role Phone Unavailable Primary Care Provider Unavailabl e Encounter Details Date Type Department Care Team (Late st Contact Info) Description 06/25/2007 5:31 PM CASING TRIMMER - 06/25/2007 8:35 PM CASING TRIMMER Hospital Encounter [facility] Leandro Giordano Social History Tobacco Use Types Packs/Day Years Used Date Smoking Tobacco: Never Assessed Comments Unknown Sex and Gender Information Value Date Recorded Sex Assigned at Not on file Legal Sex Female 4:26 PM CASING TRIMMER Gender Identity Female 03/21/2021 10:44 PM CDT Sexual Orientation Not on file documented as of this encounter Plan of Treatment Not on file documented as of this encounter Visit Diagnoses Not on filedocumented in this encounter
--- OUTSIDE RECORDS SUMMARY | 2024-06-25 14:28 | XMS_ITS | Encounter Summary ---
Author Organization [facility] Healthcare Address [address] [place] [address] Care Team Providers Care Sales Representative Publications Name Role Phone Richard Sosa MD Primary Care Provider [phone] Encounter Details Date Type Department Care Team (Latest Contact Info) Description 09/11/2016 2:23 PM CDT - 09/11/2016 11:59 PM CDT Hospital Encounter [place] [address] [address] Discharge Disposition: Discharge to home or self care Social History Tobacco Use Types Packs/Day Years Used Date Smoking Tobacco: Never Assessed Alcohol Use Standard Drinks/Week Comments Yes 0 (1 standard drink = 0.6 oz pur e alcohol) Comments Unknown Sex and Gender Information Value Date Recorded Sex Assigned at Not on file Legal 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
--- OUTSIDE RECORDS SUMMARY | 2024-06-25 14:28 | XMS_ITS | Encounter Summary ---
Author Organization [facility] Healthcare Address [address] [place] [address] Care Team Providers Care Pierce And Shave Press Operator Name Role Phone Richard Sosa MD Primary Care Provider [phone] Encounter Details Date Type Department Care Team (Late st Contact Info) Description 10/03/2016 Orders Only [facility] Interim [phone] Jeanette Gilman MD [address] [facility] [address] [place], [place] [id number] Social History Tobacco Use Types Packs/Day Years Used Date Smoking Tobacco: Never Alcohol Use Standard Drinks/Week Comments Yes 0 (1 standard drink = 0.6 oz pur e alcohol) Comments Unknown Sex and Gender Information Value Date Recorded Sex Assigned at Not on file Legal Sex Female 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 Gender Identity Female 03/21/2021 10:44 PM CDT Sexual Orientation Not on file documented as of this encounter Plan of Treatment Not on file documented as of this encounter Procedures Procedure Name Priority Date/Time Associated Diagnosis Comments COMPREHENSIVE METABOLIC PANEL STAT 10/03/2016 10:15 AM CDT documented in this encounter Results * (ABNORMAL) Comprehensive metabolic panel (10/03/2016 10:15 AM CDT) Sodium 141 135 - 145 mmol/L [facility] Potassium, pl 4.0 3.3 - 4.9 mmol/L [facility] CO2 25 22 - 32 mmol/L [facility] BUN 19 8 - 25 mg/dL [facility] Glucose 126 70 - 199 mg/dL [facility] Creatinine 0.54(L) 0.60 - 1.10 mg/dL [facility] Calcium 9.2 8.5 - 10.3 mg/dL [facility] Chloride 104 97 - 110 mmol/L [facility] Comment:fixed result mapping Albumin 4.6 3.5 - 5.0 g/dL [facility] AST 18 10 - 45 Units/L [facility] ALT 17 7 - 45 Units/L [facility] Alk phos 54 40 - 130 Units/L [facility] Bilirubin, total 0.3 0.1 - 1.2 mg/dL [facility] Protein, pl 6.8 6.5 - 8.5 g/dL [facility] Anion gap 12 2 - 15 mmol/L [facility] Blood specimen (specimen) 10/03/2016 10:15 AM CDT 10/03/2016 10:22 AM CDT us Jeanette Gilman MD LAB BLOOD ORDERABLES Final Result [facility] Department [place] [address] documented in this encounter Visit Diagnoses Not on filedocumented in this encounter Care Teams Pierce And Shave Press Operator Relationship Specialty Start Date End Date Richard Sosa MD PCP - General 09/11/16 documented as of this encounter
== END 2024-06-18 10:46 | disposition home or self-care (01) ==
PROVIDERS: PCP Family Medicine; Visit Provider Nurse Practitioner Family
DX: R09.89 Other specified symptoms and signs involving the circulatory and respiratory systems (principal); Z85.3 Personal history of malignant neoplasm of breast
CPT/HCPCS: 71046

== ENCOUNTER 2025-02-09 07:02 | Outpatient (CLI) | payer OTHER, SELFPAY ==
--- OUTSIDE RECORDS SUMMARY | 2025-02-09 07:05 | XMS_ITS | Clinical Summary ---
Author Organization [facility] Address [address] [address] Care Team Providers Care Pipe Organ Tuner And Repairer Name Role Phone Richard Sosa MD Primary Care Provider [phone] Allergies No known active allergies Medications dextroamphetami [...] ed by TW Conv) Other Father First [place] in his 40's[place]; Cause of : First [place] in his 40's[place] Melanoma Mother Melanoma - (Add ed by [...] on file Legal Sex Female 4:26 PM STATION DETECTIVE Gender Identity Female 03/21/2021 10:44 PM CDT Sexual Orientation Not on file Obstetrics History Last Filed Vital Signs Vital Sign Reading Time Taken Comments Blood Pressure 143/84 06/03/2019 10:11 AM STATION DETECTIVE Pulse 90 06/03/2019 10:11 AM STATION DETECTIVE Temperature 36.6 C (97.9 F) 06/03/2019 10:11 AM STATION DETECTIVE Respiratory Rate 12 06/03/2019 10:1 1 AM STATION DETECTIVE Oxygen Saturation 96% 06/03/2019 10: 11 AM STATION DETECTIVE Inhaled Oxygen Concentration - - Weight 54.7 kg (120 lb 11.2 oz) 019 10:11 AM STATION DETECTIVE Height 157.5 cm (5' 2.01) 01/07/2019 7:52 AM CD T Body Mass Index 22.07 01/07/2019 7:52 AM CDT Plan of Treatment Not on file [place] [address] [place] [address] HMO [facility] PPO [facility] Care Teams Pipe Organ Tuner And Repairer Relationship Specialty Start Date End Date Richard Sosa MD PCP - General 09/11/16
--- OUTSIDE RECORDS SUMMARY | 2025-02-09 07:05 | XMS_ITS | Encounter Summary ---
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
--- OUTSIDE RECORDS SUMMARY | 2025-02-09 07:05 | XMS_ITS | Encounter Summary ---
Author Organization [facility] Address [address] [place] [address] Phone Care Team Providers Care Financial Services Education Consultant Name Role Phone Richard Sosa MD Primary Care Provider [phone] Encounter Details Date Type Department Care Team [...] file Legal Sex Female 4:26 PM SENIOR MAJOR GIFTS OFFICER Gender Identity Female 03/21/2021 10:44 PM [...] on filedocumented in this encounter Care Teams Financial Services Education Consultant Relationship Specialty Start Date End Date Richard Sosa MD PCP - General 09/11/16 documented as of this encounter
[2025-02-09 08:21] LABS: Hematocrit 39.5 % (37.0-47.0); Hemoglobin 12.6 g/dL (12.0-15.0); Mean Corpuscular HGB Conc 31.9 g/dl (32-36); Mean Corpuscular Hemoglobin 30.1 pg (26-34); Mean Corpuscular Volume 94.5 fl (80-100); Platelet Count Result 306 k/mm3 (150-375); Red Blood Count 4.18 M/mm3 (4.2-5.4); White Blood Count 6.3 K/mm3 (4.5-10.0)
[2025-02-09 08:43] LABS: Iron 107 ug/dL (37-170)
[2025-02-09 08:46] LABS: Alanine Aminotransferase 22 U/L (6-35); Albumin Level 4.4 g/dL (3.5-5.1); Alkaline Phosphatase 80 U/L (38-126); Anion Gap 5 mmol/L (4-12); Aspartate Amino Transferase 26 U/L (14-36); Bilirubin,Total 0.5 mg/dL (0.2-1.3); Blood Urea Nitrogen 20 mg/dL (7-17); Calcium 9.4 mg/dL (8.4-10.2); Carbon Dioxide 29 mmol/L (22-30); Chloride 100 mmol/L (98-107); Cholesterol 246 mg/dL (0-200); Estimated Glomerular Filt Rate > 60; Glucose 85 mg/dL (65-110); HDL Direct 73 mg/dL; Potassium 3.7 mmol/L (3.4-5.0); Sodium 134 mmol/L (137-145); Total Protein 7.3 g/dL (6.3-8.2); Triglycerides 62 mg/dL (<150)
[2025-02-09 08:54] LABS: Percent Iron Saturation 31 % (20-50)
[2025-02-09 09:23] LABS: Thyroid Stimulating Hormone 0.883 uIU/mL (0.465-4.680)
[2025-02-09 09:26] LABS: Ferritin 12.30 ng/mL (11.1-264)
[2025-02-09 09:44] LABS: Vitamin B12 > 1000.0 pg/mL (239-931)
== END 2025-02-09 07:03 | disposition home or self-care (01) ==
LOC: ANHLAB 07:03
PROVIDERS: PCP Family Medicine; Visit Provider Family Medicine
DX: D64.9 Anemia, unspecified (principal); Z13.220 Encounter for screening for lipoid disorders; E78.2 Mixed hyperlipidemia; E55.9 Vitamin D deficiency, unspecified; F90.9 Attention-deficit hyperactivity disorder, unspecified type; E53.8 Deficiency of other specified B group vitamins
CPT/HCPCS: 36415; 80048; 80061; 80076; 82306; 82607; 82728; 83540; 83550; 84443; 85027

== ENCOUNTER 2025-03-24 12:07 | Outpatient (CLI) | payer OTHER, SELFPAY ==
--- NOTE | ~2025-03-24 | MMUS_ITS ---
EXAMINATION: MM diag doug implant BI w juliann, US breast RT limited INDICATION: 65-year old female; Nonfocal RIGHT Breast pain in the Lateral quadrants. Prior history of right breast cancer status post partial mastectomy 2017 with reconstruction with implants. COMPARISON: 04/08/2024 through 09/11/2016 TECHNIQUEDigital Breast Tomosynthesis CC, MLO, and implant displaced CC and MLO views of Both breasts were obtained with computer-aided detection to assist in interpretation of the study. MAMMOGRAM FINDINGS: : There are scattered areas of fibroglandular density. Bilateral breast Retropectoral Silicone implants in place appears intact. No focal dominant mass, architectural distortion, or suspicious microcalcifications are identified. There are no features to suggest malignancy. No mammographic abnormality correlates to the area of breast pain. RIGHT BREAST ULTRASOUND FINDINGS: Targeted ultrasound at the Lateral Right breast reveals no discrete cystic or solid lesions . IMPRESSION: 1. No evidence of malignancy in the breasts. 2. Both breasts Retropectoral Silicone implants appears intact. No mammographic or sonographic abnormality correlates to the area of RIGHT pain. RECOMMENDATIONS: 1. Clinical management of patient's breast pain. 2. Recommend continued screening mammography BI-RADS 2, BENIGN Reviewed, dictated and finalized at location B. IMPRESSION: 1. No evidence of malignancy in the breasts. 2. Both breasts Retropectoral Silicone implants appears intact. No mammographic or sonographic abnormality correlates to the area of RIGHT pain . RECOMMENDATIONS: 1. Clinical management of patient's breast pain. 2. Recommend continued screening mammography BI-RADS 2, BENIGN
--- OUTSIDE RECORDS SUMMARY | 2025-03-24 12:11 | XMS_ITS | Clinical Summary ---
Author Organization [facility] Address [address] [address] Care Team Providers Care Video Surveillance Technician Name Role Phone Richard Sosa MD Primary Care Provider [phone] Allergies No known active allergies Medications dextroamphetami [...] ed by TW Conv) Other Father [place] in his 40's[place]; Cause of : [place] in his 40's[place] Melanoma Mother Melanoma - (Add ed by [...] on file Legal Sex Female 4:26 PM SALES RECEPTIONIST Gender Identity Female 03/21/2021 10:44 PM CDT Sexual Orientation Not on file Obstetrics History Last Filed Vital Signs Vital Sign Reading Time Taken Comments Blood Pressure 143/84 06/03/2019 10:11 AM SALES RECEPTIONIST Pulse 90 06/03/2019 10:11 AM SALES RECEPTIONIST Temperature 36.6 C (97.9 F) 06/03/2019 10:11 AM SALES RECEPTIONIST Respiratory Rate 12 06/03/2019 10:1 1 AM SALES RECEPTIONIST Oxygen Saturation 96% 06/03/2019 10: 11 AM SALES RECEPTIONIST Inhaled Oxygen Concentration - - Weight 54.7 kg (120 lb 11.2 oz) 019 10:11 AM SALES RECEPTIONIST Height 157.5 cm (5' 2.01) 01/07/2019 7:52 AM CD T Body Mass Index 22.07 01/07/2019 7:52 AM CDT Plan of Treatment Not on file [place] [address] [address] [address] [facility] PPO [facility] Care Teams Video Surveillance Technician Relationship Specialty Start Date End Date Richard Sosa MD PCP - General 09/11/16
--- OUTSIDE RECORDS SUMMARY | 2025-03-24 12:11 | XMS_ITS | Encounter Summary ---
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
--- OUTSIDE RECORDS SUMMARY | 2025-03-24 12:11 | XMS_ITS | Encounter Summary ---
Author Organization [facility] Address [address] [place] [address] Phone Care Team Providers Care Nozzle Worker Name Role Phone Richard Sosa MD Primary Care Provider [phone] Encounter Details Date Type Department Care Team [...] on file Legal Sex Female 4:26 PM QUALITY ASSURANCE INSPECTOR Gender Identity Female 03/21/2021 10:44 PM [...] on filedocumented in this encounter Care Teams Nozzle Worker Relationship Specialty Start Date End Date Richard Sosa MD PCP - General 09/11/16 documented as of this encounter
== END 2025-03-24 12:08 | disposition home or self-care (01) ==
LOC: ANHFOHIMG 12:09
PROVIDERS: PCP Family Medicine; Visit Provider Physician Assistant Medical
DX: N64.4 Mastodynia (principal); N63.20 Unspecified lump in the left breast, unspecified quadrant; Z98.82 Breast implant status; Z85.3 Personal history of malignant neoplasm of breast
CPT/HCPCS: 76642; 77062; 77066; G0279